=== PATIENT | male | born 1940 | race Caucasian/White ===

== ENCOUNTER 2018-11-17 14:19 | Emergency (ER) | payer MEDICARE ==
[~2018-11-17] VITALS: Ht 182.9 cm; Wt 102.1 kg
[2018-11-17] MEDS ORDERED: cefTRIAXone FOR IV USE 1,000 MG in WATER (STERILE) FOR INJECTION 10 ML IV STA (14:51)
[2018-11-17] MEDS ORDERED: NS IV 1000 ML 1,000 ML IV STA (14:51)
[2018-11-17 14:57] LABS: BILIRUBIN,URINE 1+ (NEGATIVE); CLARITY,URINE CLOUDY; COLOR,URINE YELLOW; GLUCOSE, URINE (UA) NEGATIVE (NEGATIVE); KETONES,URINE TRACE (NEGATIVE); LEUKOCYTE ESTERASE ,URINE 2+ (NEGATIVE); NITRITE,URINE NEGATIVE (NEGATIVE); PROTEIN,URINE TRACE (NEGATIVE); RBC,URINE 2+5 /HPF; UROBILINOGEN,URINE 0.2 MG/DL (NORMAL)
[2018-11-17 14:58] LABS: BACTERIA,URINE FEW /HPF; WBC,URINE 50+100 /HPF
--- NOTE | 2018-11-17 14:59 | ED Neurological Problem ---
General Stated Complaint: DIZZY,MEMORY LOSS Source: patient, family Exam Limitations: clinical condition History of Present Illness Date Seen by Provider: Nov 17, 2018 Time Seen by Provider: 14:40 This is a 78-year-old man who is brought to the emergency department by his family for complaint of "dizziness", increased confusion from baseline. This was first noticed this morning upon waking, he poorly put his pants on backwards , his daughter relays that he had urinated on the floor by accident. He apparently has had similar presentations in the past when he has had urinary tract infections. Patient denies any pain, no headache or neck pain or back pain or chest pain or abdominal pain. No shortness of breath. No visual change, no focal weakness, numbness, or tingling. He has not noticed a fever. Patient is disoriented to the year and to location, his daughter states this is not different from baseline, however as a result of acute on chronic encephalopathy history may be limited. Allergies and Home Medications Allergies Uncoded Allergies: SULFA (Adverse Reaction, Unknown, 11/17/18) Patient Home Medication List Home Medication List Reviewed: Yes Review of Systems Review of Systems Constitutional: no symptoms reported Eyes: No Symptoms Reported Ears, Nose, Mouth, Throat: no symptoms reported Respiratory: no symptoms reported Cardiovascular: no symptoms reported Gastrointestinal: no symptoms reported Genitourinary: incontinence Musculoskeletal: no symptoms reported Skin: no symptoms reported Psychiatric/Neurological: Cognitive Dysfunction; Denies Headache, Denies Numbness, Denies Weakness Past [id number]-Evgtud-Wzzcpx Hx Patient Social History Recent Foreign Travel: No (N) Contact w/Someone Who Travel: No (N) Physical Exam Vital Signs Vital Signs - First Documented 11/17/18 14:20 Temp 100.2 Pulse 78 Resp 16 B/P (MAP) 132/75 (94) Pulse Ox 95 O2 Delivery Room Air Capillary Refill : Height, Weight, BMI Height: '" Weight: lbs. oz. 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 Patient is disoriented to the year and to our location, this is apparently unchanged from baseline according to his daughter.), alert, normal mood/affect; No abnormal cerebellar tests Skin: normal color, warm/dry Focused Exam Lactate Level 11/17/18 14:50: Lactic Acid Level 1.17 Lactic Acid Level Laboratory Tests Test 11/17/18 14:50 Lactic Acid Level 1.17 MMOL/L (0.50-2.00) Progress/Results/Core Measures Results/Orders Lab Results Laboratory Tests Test 11/17/18 14:30 11/17/18 14:50 Range/Units Urine Color YELLOW Urine Clarity CLOUDY Urine pH 6.0 5-9 Urine Specific [place] 1.015 L 1.016-1.022 Urine Protein TRACE NEGATIVE Urine Glucose (UA) NEGATIVE NEGATIVE Urine Ketones TRACE H NEGATIVE Urine Nitrite NEGATIVE NEGATIVE Urine Bilirubin 1+ H NEGATIVE Urine Urobilinogen 0.2 NORMAL MG/DL Urine Leukocyte Esterase 2+ H NEGATIVE Urine RBC (Auto) TRACE H NEGATIVE Urine RBC 2+5 /HPF Urine WBC 50+100 /HPF Urine Crystals NONE /LPF Urine Bacteria FEW H /HPF Urine Casts NONE /LPF Urine Mucus NEGATIVE /LPF Urine Culture Indicated YES White Blood Count 17.1 H 4.3-11.0 10^3/uL Red Blood Count 4.27 L 4.35-5.85 10^6/uL Hemoglobin 12.9 L 13.3-17.7 G/DL Hematocrit 95 H 40-54 % Mean Corpuscular Volume 95 80-99 FL Mean Corpuscular Hemoglobin 30 25-34 PG Mean Corpuscular Hemoglobin Concent 32 32-36 G/DL Red Cell Distribution Width 15.1 H 10.0-14.5 % Platelet Count 168 130-400 10^3/uL Mean Platelet Volume 9.6 7.4-10.4 FL Neutrophils (%) (Auto) 81 H 42-75 % Lymphocytes (%) (Auto) 10 L 12-44 % Monocytes (%) (Auto) 7 0-12 % Eosinophils (%) (Auto) 0 0-10 % Basophils (%) (Auto) 0 0-10 % Neutrophils # (Auto) 13.8 H 1.8-7.8 X 10^3 Lymphocytes # (Auto) 1.7 1.0-4.0 X 10^3 Monocytes # (Auto) 1.3 H 0.0-1.0 X 10^3 Eosinophils # (Auto) 0.1 0.0-0.3 10^3/uL Basophils # (Auto) 0.1 0.0-0.1 10^3/uL Neutrophils % (Manual) 60 % Lymphocytes % (Manual) 11 % Monocytes % (Manual) 8 % Eosinophils % (Manual) 2 % Basophils % (Manual) 0 % Band Neutrophils 18 % Atypical Lymphocytes 1 % Schistocytes NA Prothrombin Time 14.8 H 12.2-14.7 SEC INR Comment 1.2 0.8-1.4 Activated Partial Thromboplast Time 30 24-35 SEC Sodium Level 139 135-145 MMOL/L Potassium Level 3.9 3.6-5.0 MMOL/L Chloride Level 103 98-107 MMOL/L Carbon Dioxide Level 25 21-32 MMOL/L Anion Gap 11 5-14 MMOL/L Blood Urea Nitrogen 17 7-18 MG/DL Creatinine 1.19 0.60-1.30 MG/DL Estimat Glomerular Filtration Rate 59 BUN/Creatinine Ratio 14 Glucose Level 115 H 70-105 MG/DL Lactic Acid Level 1.17 0.50-2.00 MMOL/L Calcium Level 8.3 L 8.5-10.1 MG/DL Corrected Calcium 8.5 8.5-10.1 MG/DL Total Bilirubin 2.0 H 0.1-1.0 MG/DL Aspartate Amino Transf (AST/SGOT) 12 5-34 U/L Alanine Aminotransferase (ALT/SGPT) 12 0-55 U/L Alkaline Phosphatase 63 40-136 U/L Troponin T 14 <=15 NG/L Total Protein 6.4 6.4-8.2 GM/DL Albumin 3.8 3.2-4.5 GM/DL My Orders Orders - MIKHAIL GOMEZ T DO Ua Culture If Indicated (11/17/18 14:39) Cbc With Automated Diff (11/17/18 14:47) Comprehensive Metabolic Panel (11/17/18 14:47) Blood Culture (11/17/18 14:47) Urinalysis (11/17/18 14:47) Urine Culture (11/17/18 14:47) Protime With Inr (11/17/18 14:47) Partial Thromboplastin Time (11/17/18 14:47) Chest 1 View Ap/Pa Only (11/17/18 14:47) Saline Lock/Iv-Start (11/17/18 14:47) Saline Lock/Iv-Start (11/17/18 14:47) Ekg Tracing (11/17/18 14:47) Vital Signs Adult Sepsis Patie Q15M (11/17/18 14:47) O2 (11/17/18 14:47) Remove Rings In Anticipation O (11/17/18 14:47) Lactic Acid Analyzer (11/17/18 14:47) Influenza A And B Antigens (11/17/18 14:47) Ct Head Wo (11/17/18 14:50) Ns Iv 1000 Ml (Sodium Chloride 0.9%) (11/17/18 14:51) Ceftriaxone For Iv Use (Rocephin For I (11/17/18 14:51) Urine Culture (11/17/18 14:30) Manual Differential (11/17/18 14:50) Vital Signs/I&O 11/17/18 14:20 Temp 100.2 Pulse 78 Resp 16 B/P (MAP) 132/75 (94) Pulse Ox 95 O2 Delivery Room Air Progress Progress Note : Progress Note Patient has a temperature of 100.2 oral, he has had similar presentations with some degree of ataxia in the past related to urinary tract infections. We will treat patient with empiric ceftriaxone, fluid bolus, acetaminophen, we will check lactic acid as a screen for severe sepsis, we will obtain CT of the brain although stroke is less likely differential consideration, and there is no history of trauma. He would be out of the TPA window if we did suspect stroke, and his presentation is not consistent with a large vessel occlusion potentially amenable to interventional procedure. Plan to admit patient for monitoring given that his mental status is changed from baseline. EKG : Comment 1446: Normal sinus rhythm rate of 77. Normal axis. Small inferior Q waves. Nonspecific inferior and lateral T-wave flattening. Diagnostic Imaging Comments CHEST 1 VIEW AP/PA ONLY INDICATION: Dizziness and memory loss. FINDINGS: The heart size, mediastinal configuration, and pulmonary vascularity are within normal limits. There is no pleural effusion, pneumothorax, or pneumonia. The osseous structures are unremarkable. IMPRESSION: No acute cardiopulmonary abnormality. PROCEDURE: CT head without contrast. TECHNIQUE: Multiple contiguous axial images were obtained through the brain without the use of intravenous contrast. INDICATION: Dizziness and memory loss. No prior examinations are available for comparison. FINDINGS: There is prominence of the ventricles and sulci. There is no hydrocephalus or cerebral edema. There is no midline shift or mass-effect. There is no intracranial mass, hemorrhage, or extra-axial fluid collection. There is some diffuse decreased attenuation of the periventricular white matter which is nonspecific. The visualized paranasal sinuses and mastoid air cells are clear. There are no regional areas of decreased attenuation appreciated to suggest an acute CVA. IMPRESSION: 1. No acute intracranial process. 2. Age- appropriate atrophy. 3. Decreased attenuation of the periventricular white matter which is nonspecific, however, likely reflects senescent change and/or chronic small vessel ischemic disease. Departure Impression Primary Impression: UTI (urinary tract infection) Additional Impression: Acute encephalopathy Disposition: XFER T-COUNTS INCLUDE 234 BEDS AT THE [facility] Condition: Stable Transfer Time Spoke to Accepting Phy: 16:35 Transfer Facility: [facility], accepted by Dr Young Method of Transfer: EMS Departure-Patient Inst. Referrals: SELF,MELISSA FERRELL (PCP/Family) Primary Care Physician MIKHAIL GOMEZ DO Nov 17, 2018 14:59
[2018-11-17 15:16] LABS: HEMATOCRIT 95 % (40-54); HEMOGLOBIN 12.9 G/DL (13.3-17.7); MEAN CORPUSCULAR HEMOGLOBIN 30 PG (25-34); WHITE BLOOD COUNT 17.1 10^3/uL (4.3-11.0)
[2018-11-17 15:17] LABS: BASOPHILS # (AUTO) 0.1 10^3/uL (0.0-0.1); BASOPHILS % (AUTO) 0 % (0-10); EOSINOPHILS # (AUTO) 0.1 10^3/uL (0.0-0.3); EOSINOPHILS % (AUTO) 0 % (0-10); LYMPHOCYTES # (AUTO) 1.7 X 10^3 (1.0-4.0); LYMPHOCYTES % (AUTO) 10 % (12-44); MEAN CORPUSCULAR HGB CONC 32 G/DL (32-36); MEAN CORPUSCULAR VOLUME 95 FL (80-99); MEAN PLATELET VOLUME 9.6 FL (7.4-10.4); MONOCYTES # (AUTO) 1.3 X 10^3 (0.0-1.0); MONOCYTES % (AUTO) 7 % (0-12); NEUTROPHILS # (AUTO) 13.8 X 10^3 (1.8-7.8); NEUTROPHILS % (AUTO) 81 % (42-75); PLATELET COUNT 168 10^3/uL (130-400); RED CELL DISTRIBUTION WIDTH 15.1 % (10.0-14.5)
--- NOTE | 2018-11-17 15:22 | Diagnostic Imaging Report ---
PROCEDURE: CT head without contrast. TECHNIQUE: Multiple contiguous axial images were obtained through the brain without the use of intravenous contrast. INDICATION: Dizziness and memory loss. No prior examinations are available for comparison. FINDINGS: There is prominence of the ventricles and sulci. There is no hydrocephalus or cerebral edema. There is no midline shift or mass-effect. There is no intracranial mass, hemorrhage, or extra-axial fluid collection. There is some diffuse decreased attenuation of the periventricular white matter which is nonspecific. The visualized paranasal sinuses and mastoid air cells are clear. There are no regional areas of decreased attenuation appreciated to suggest an acute CVA. IMPRESSION: 1. No acute intracranial process. 2. Age-appropriate atrophy. 3. Decreased attenuation of the periventricular white matter which is nonspecific, however, likely reflects senescent change and/or chronic small vessel ischemic disease. Dictated by: Dictated on workstation # [id number]
[2018-11-17 15:24] LABS: INR 1.2 (0.8-1.4); PROTHROMBIN TIME PATIENT 14.8 SEC (12.2-14.7)
--- NOTE | 2018-11-17 15:25 | Diagnostic Imaging Report ---
INDICATION: Dizziness and memory loss. FINDINGS: The heart size, mediastinal configuration, and pulmonary vascularity are within normal limits. There is no pleural effusion, pneumothorax, or pneumonia. The osseous structures are unremarkable. IMPRESSION: No acute cardiopulmonary abnormality. Dictated by: Dictated on workstation # [id number]
[2018-11-17] MEDS ORDERED: LEVO25TA5 (15:27)
[2018-11-17 15:29] LABS: ALBUMIN 3.8 GM/DL (3.2-4.5); CALCIUM 8.3 MG/DL (8.5-10.1); CREATININE SERUM 1.19 MG/DL (0.60-1.30); POTASSIUM 3.9 MMOL/L (3.6-5.0); TOTAL PROTEIN 6.4 GM/DL (6.4-8.2)
[2018-11-17 16:09] LABS: BAND NEUTROPHILS 18 %; EOSINOPHILS % (MANUAL) 2 %; LYMPHOCYTES % (MANUAL) 11 %; MONOCYTES % (MANUAL) 8 %; NEUTROPHILS % (MANUAL) 60 %
[2018-11-17 16:10] LABS: ATYPICAL LYMPHOCYTES 1 %; BASOPHILS % (MANUAL) 0 %
--- NOTE | 2018-11-17 16:30 | NUR ---
ACCEPTED TRANSFER PER [facility].
--- NOTE | 2018-11-17 16:34 | NUR ---
NOTIFIED REGISTRATION OF NEED FOR UPDATED FACESHEET AND FAX # TO SEND IT
--- NOTE | 2018-11-17 16:35 | NUR ---
UPDATED ALLERGY LIST, FAMILY STATE PRIOR ALLERGY OF SULFA FOUND AT [facility].
--- NOTE | 2018-11-17 17:00 | NUR ---
REPORT TO ELINA RAMSEY. TRANSFER DEPT [facility] AWAITING FACESHEET BEING UPDATED. NO BED ASSIGNMENT YET.
[2018-11-17 17:23] VITALS: BP 133/63
[2018-11-17 17:49] VITALS: BP 139/66
--- NOTE | 2018-11-17 18:04 | NUR ---
Fax sheet was sent to dispatch at this time. Dispatch was called to notify them of transfer to [facility].
--- NOTE | 2018-11-17 18:20 | NUR ---
Report was given to [facility] EMS crew. Report was given and transferred to BRANDT Harrison. EMS left with patient at this time.
== END 2018-11-17 18:21 | disposition short-term general hospital (02) ==
LOC: EDUNIT# 14:19 → ER FS 14:22
DX: N39.0 Urinary tract infection, site not specified (principal); G93.40 Encephalopathy, unspecified; Z88.2 Allergy status to sulfonamides
CPT/HCPCS: 36415; 70450; 71045; 80053; 81000; 83605; 84484; 85007; 85027; 85610; 85730; 87040; 87077; 87088; 87186; 87804; 93005

== ENCOUNTER 2018-12-14 10:50 | Emergency (ER) | payer MEDICARE ==
[~2018-12-14] VITALS: Ht 188 cm; Wt 90.7 kg
[~2018-12-14 10:50] MED LIST: LEVO25TA5
[2018-12-14] MEDS ORDERED: NS IV 1000 ML 1,000 ML IV SCH (11:15)
[2018-12-14] MEDS ORDERED: MECLIZINE 25 MG (ANTIVERT) TAB PO ONE (11:15)
[2018-12-14 11:45] LABS: BASOPHILS % (AUTO) 1 % (0-10); EOSINOPHILS % (AUTO) 2 % (0-10); HEMATOCRIT 38 % (40-54); LYMPHOCYTES % (AUTO) 20 % (12-44); MEAN CORPUSCULAR HEMOGLOBIN 30 PG (25-34); MEAN CORPUSCULAR HGB CONC 32 G/DL (32-36); MEAN CORPUSCULAR VOLUME 93 FL (80-99); MEAN PLATELET VOLUME 9.4 FL (7.4-10.4); MONOCYTES % (AUTO) 9 % (0-12); NEUTROPHILS % (AUTO) 68 % (42-75); PLATELET COUNT 205 10^3/uL (130-400); RED CELL DISTRIBUTION WIDTH 14.5 % (10.0-14.5); WHITE BLOOD COUNT 7.9 10^3/uL (4.3-11.0)
[2018-12-14 11:46] LABS: EOSINOPHILS # (AUTO) 0.2 10^3/uL (0.0-0.3); LYMPHOCYTES # (AUTO) 1.6 X 10^3 (1.0-4.0); MONOCYTES # (AUTO) 0.7 X 10^3 (0.0-1.0); NEUTROPHILS # (AUTO) 5.3 X 10^3 (1.8-7.8)
--- NOTE | 2018-12-14 11:51 | Diagnostic Imaging Report ---
PROCEDURE: CT head without contrast. TECHNIQUE: Multiple contiguous axial images were obtained through the brain without the use of intravenous contrast. Auto Exposure Controls were utilized during the CT exam to meet ALARA standards for radiation dose reduction. INDICATION: Dizziness, syncope The ventricles are normal in size, shape and position. There are no masses or hemorrhages. There are no extra-axial fluid collections. There is decreased density in the periventricular white matter in both cerebral hemispheres consistent with chronic small vessel ischemic change. This is unchanged compared to prior study done on 11/17/2018. Impression: Chronic ischemic leukoencephalopathy. No acute abnormalities seen. Dictated by: Dictated on workstation # [id number]
[2018-12-14 12:04] LABS: ALANINE AMINOTRANSFERASE 8 U/L (0-55); ALKALINE PHOSPHATASE 71 U/L (40-136); BILIRUBIN,TOTAL 1.5 MG/DL (0.1-1.0); BUN/CREATININE RATIO 14; CALCIUM 8.4 MG/DL (8.5-10.1); CARBON DIOXIDE 19 MMOL/L (21-32); CHLORIDE 99 MMOL/L (98-107); CREATININE SERUM 1.11 MG/DL (0.60-1.30); GFR ESTIMATED > 60; GLUCOSE 111 MG/DL (70-105); POTASSIUM 3.8 MMOL/L (3.6-5.0); SODIUM 137 MMOL/L (135-145); TOTAL PROTEIN 6.6 GM/DL (6.4-8.2)
[2018-12-14 13:00] LABS: CLARITY,URINE CLEAR; COLOR,URINE YELLOW; GLUCOSE, URINE (UA) NEGATIVE (NEGATIVE); KETONES,URINE NEGATIVE (NEGATIVE); NITRITE,URINE NEGATIVE (NEGATIVE); PROTEIN,URINE NEGATIVE (NEGATIVE)
[2018-12-14 13:01] LABS: BACTERIA,URINE NEGATIVE /HPF; BILIRUBIN,URINE NEGATIVE (NEGATIVE); LEUKOCYTE ESTERASE ,URINE NEGATIVE (NEGATIVE); RBC,URINE 0-2 /HPF; SQUAMOUS EPITHELIAL CELL,UR 0-2 /HPF; WBC,URINE 0-2 /HPF
--- NOTE | 2018-12-14 13:23 | ED General ---
General Chief Complaint: Dizziness/Syncope Nursing Triage Note: Has been having increased orthostatic hypotension. Fludrocortisone was increased by Dr Mendez with first new dose this morning. Patient fell last night. Nursing Sepsis Screen: No Definite Risk Source of Information: Patient, Caregiver Exam Limitations: No Limitations History of Present Illness Date Seen by Provider: Dec 14, 2018 Time Seen by Provider: 12:00 Initial Comments Toni Hardy is a 78-year-old male retirement patient with history of dementia orthostatic hypotension with frequent dizzy and falling episodes which is been ongoing for several months presents with continued dizzy spells despite having a recent increase in his Florinef. Patient was instructed to take an extra dose yesterday and again today. Dizziness is postural and worse with standing and walking. Patient does not lean or fall to a particular side. He denies headache , focal extremity weakness or loss of sensation. Apparently, this is not a new condition is been extensively evaluated at [facility] in [place]. She denies loss of appetite, recent change in medications other than outlined. He has not had any recent illnesses. He is on anticoagulation therapy. History limited due the patient's dementia. Timing/Duration: Other (several months) Allergies and Home Medications Allergies Uncoded Allergies: SULFA (Adverse Reaction, Unknown, 11/17/18) Patient Home Medication List Home Medication List Reviewed: Yes Review of Systems Review of Systems Constitutional: see HPI EENTM: see HPI Respiratory: see HPI Cardiovascular: see HPI Psychiatric/Neurological: Anxiety; Denies Headache, Denies Numbness, Denies Paresthesia, Denies Tingling, Denies Tremors, Denies Weakness; Other (possible vertigo) Past Aypbqzk-Tbrkwy-Voxzxl Hx Patient Social History Alcohol Use: Denies Use Recreational Drug Use: No Smoking Status: Never a Smoker Type Used: Cigarettes, Smokeless Tobacco Former Smoker, Quit: Sep 25, 1968 2nd Hand Smoke Exposure: No Recent Foreign Travel: No Contact w/Someone Who Travel: No Recent Infectious Disease Expo: No Recent Hopitalizations: No Physical Abuse: No Sexual Abuse: No Mistreated: No Seasonal Allergies Seasonal Allergies: No Past Medical History Cardiac: Yes (per Assisted Living records CAD and orthostatic hypotension) Coronary Artery Disease, Hypotension Neurological: Yes (memory loss per Assisted Living records) Genitourinary: Yes (hx urine retention) UTI-Chronic Physical Exam Vital Signs Vital Signs - First Documented 3/22/19 10:57 Temp 98.7 Pulse 82 Resp 20 B/P (MAP) 115/69 (84) Pulse Ox 93 Capillary Refill : Less Than 3 Seconds Height, Weight, BMI Height: 6'2.00" Weight: 200lbs. oz. 90.317649lg; BMI Method:Stated General Appearance: No Apparent Distress, WD/WN Eyes: Bilateral Eye Normal Inspection, Bilateral Eye PERRL HEENT: PERRL/EOMI, Normal ENT Inspection, Pharynx Normal Neck: Full Range of Motion, Normal Inspection, Supple Respiratory: Chest Non Tender, Lungs Clear Cardiovascular: Regular Rate, Rhythm Gastrointestinal: Normal Bowel Sounds, No Pulsatile Mass Back: Normal Inspection Extremity: Normal Capillary Refill Neurologic/Psychiatric: Alert, No Motor/Sensory Deficits, Normal Mood/Affect, battery container tester II-XII Norm as Tested, Abnormal Gait Reflexes: 4+ Bicep (R), 4+ Bicep (L), 4+ Tricep (R), 4+ Tricep (L), 4+ Knee (R) , 4+ Knee (L), 4+ Ankle (R), 4+ Ankle (L) Skin: Normal Color Focused Exam Sepsis Stage: Ruled Out Progress/Results/Core Measures Suspected Sepsis Recent Fever Within 48 Hours: No Infection Criteria Present: None New/Unexplained Altered Menta: No Sepsis Screen: No Definite Risk SIRS Temperature:98.7 Pulse: 82 Respiratory Rate: 20 Laboratory Tests 12/14/18 11:25: White Blood Count 7.9 Blood Pressure 115 /69 Mean: 84 Laboratory Tests 12/14/18 11:25: Creatinine 1.11, Platelet Count 205, Total Bilirubin 1.5H Results/Orders Lab Results Laboratory Tests Test 12/14/18 11:25 12/14/18 12:29 Range/Units White Blood Count 7.9 4.3-11.0 10^3/uL Red Blood Count 4.05 L 4.35-5.85 10^6/uL Hemoglobin 12.0 L 13.3-17.7 G/DL Hematocrit 38 L 40-54 % Mean Corpuscular Volume 93 80-99 FL Mean Corpuscular Hemoglobin 30 25-34 PG Mean Corpuscular Hemoglobin Concent 32 32-36 G/DL Red Cell Distribution Width 14.5 10.0-14.5 % Platelet Count 205 130-400 10^3/uL Mean Platelet Volume 9.4 7.4-10.4 FL Neutrophils (%) (Auto) 68 42-75 % Lymphocytes (%) (Auto) 20 12-44 % Monocytes (%) (Auto) 9 0-12 % Eosinophils (%) (Auto) 2 0-10 % Basophils (%) (Auto) 1 0-10 % Neutrophils # (Auto) 5.3 1.8-7.8 X 10^3 Lymphocytes # (Auto) 1.6 1.0-4.0 X 10^3 Monocytes # (Auto) 0.7 0.0-1.0 X 10^3 Eosinophils # (Auto) 0.2 0.0-0.3 10^3/uL Basophils # (Auto) 0.0 0.0-0.1 10^3/uL Sodium Level 137 135-145 MMOL/L Potassium Level 3.8 3.6-5.0 MMOL/L Chloride Level 99 98-107 MMOL/L Carbon Dioxide Level 19 L 21-32 MMOL/L Anion Gap 19 H 5-14 MMOL/L Blood Urea Nitrogen 16 7-18 MG/DL Creatinine 1.11 0.60-1.30 MG/DL Estimat Glomerular Filtration Rate > 60 BUN/Creatinine Ratio 14 Glucose Level 111 H 70-105 MG/DL Calcium Level 8.4 L 8.5-10.1 MG/DL Corrected Calcium 9.2 8.5-10.1 MG/DL Total Bilirubin 1.5 H 0.1-1.0 MG/DL Aspartate Amino Transf (AST/SGOT) 11 5-34 U/L Alanine Aminotransferase (ALT/SGPT) 8 0-55 U/L Alkaline Phosphatase 71 40-136 U/L Total Protein 6.6 6.4-8.2 GM/DL Albumin 3.0 L 3.2-4.5 GM/DL Urine Color YELLOW Urine Clarity CLEAR Urine pH 6.0 5-9 Urine Specific [place] 1.010 L 1.016-1.022 Urine Protein NEGATIVE NEGATIVE Urine Glucose (UA) NEGATIVE NEGATIVE Urine Ketones NEGATIVE NEGATIVE Urine Nitrite NEGATIVE NEGATIVE Urine Bilirubin NEGATIVE NEGATIVE Urine Urobilinogen 1.0 NORMAL MG/DL Urine Leukocyte Esterase NEGATIVE NEGATIVE Urine RBC (Auto) NEGATIVE NEGATIVE Urine RBC 0-2 /HPF Urine WBC 0-2 /HPF Urine Squamous Epithelial Cells 0-2 /HPF Urine Crystals NONE /LPF Urine Bacteria NEGATIVE /HPF Urine Casts NONE /LPF Urine Mucus MODERATE H /LPF Urine Culture Indicated NO My Orders Orders - FIORELLA TORRES DO Cbc With Automated Diff (12/14/18 11:14) Comprehensive Metabolic Panel (12/14/18 11:14) Urinalysis (12/14/18 11:14) Ekg Tracing (12/14/18 11:14) Meclizine Tablet (Antivert Tablet) (12/14/18 11:15) Ns Iv 1000 Ml (Sodium Chloride 0.9%) (12/14/18 11:15) Ct Head Wo (12/14/18 11:14) Thyroid Stimulating Hormone (12/14/18 11:25) Medications Given in ED Current Medications Medications Dose Ordered Sig/Isaac Route Start Time Stop Time Status Last Admin Dose Admin Meclizine HCl 25 mg ONCE ONCE PO 12/14/18 11:15 12/14/18 11:16 DC 12/14/18 11:29 25 MG Vital Signs/I&O 12/14/18 10:57 Temp 98.7 Pulse 82 Resp 20 B/P (MAP) 115/69 (84) Pulse Ox 93 Capillary Refill : Less Than 3 Seconds Blood Pressure Mean: 84 Departure Communication (Admissions) Patient has chronic dizziness with orthostatic component. Patient may also have a component of vertigo. IV fluids and meclizine given. CT labs, EKG reviewed and nondiagnostic. Recommend following up with PCPs office on Monday for coordination of outpatient therapy. In the meantime, the patient is instructed to use a walker as he as at high risk of fall and injury Impression Primary Impression: Orthostatic dizziness Additional Impression: Vertigo Disposition: 01 HOME, SELF-CARE Condition: Stable Departure-Patient Inst. Decision time for Depature: 13:26 Referrals: SELFMELISSA MD (PCP/Family) Primary Care Physician Patient Instructions: Vertigo (a Type of Dizziness) (DC), Orthostatic Hypotension (DC) Scripts Benzonatate (TESSALON PERLES) 100 Mg Capsule 100 MG PO BID PRN for COUGH, #20 CAP Prov: FIORELLA TORRES DO 12/14/18 Meclizine HCl (Meclizine HCl) 25 Mg Tablet 25 MG PO Q6H PRN for VERTIGO, #15 TAB Prov: FIORELLA TORRES DO 12/14/18 FIORELLA TORRES DO Dec 14, 2018 13:23
[2018-12-14] MEDS ORDERED: MECL-106 PO (13:28)
[2018-12-14] MEDS ORDERED: BENZ100C18 PO (13:28)
[2018-12-14 13:38] VITALS: BP 115/69
== END 2018-12-14 13:40 | disposition home or self-care (01) ==
LOC: EDUNIT# 10:50 → ER FS 10:59
DX: R42 Dizziness and giddiness (principal); F03.90 Unspecified dementia, unspecified severity, without behavioral disturbance, psychotic disturbance, mood disturbance, and anxiety; I25.10 Atherosclerotic heart disease of native coronary artery without angina pectoris; I10 Essential (primary) hypertension; Z87.440 Personal history of urinary (tract) infections; Z88.2 Allergy status to sulfonamides; Z87.891 Personal history of nicotine dependence
CPT/HCPCS: 36415; 70450; 80053; 81000; 84443; 85025

== ENCOUNTER → 2019-03-21 | Outpatient (CLI) | payer MEDICARE ==
[~2019-03-21] MED LIST changes: +BENZ100C18 PO; +MECL-106 PO
== END ==
LOC: LAB FS 09:12
PROVIDERS: ATTEND Urology
DX: N40.1 Benign prostatic hyperplasia with lower urinary tract symptoms (principal); R39.9 Unspecified symptoms and signs involving the genitourinary system
CPT/HCPCS: 36415; 84153

== ENCOUNTER 2019-05-20 08:32 | Emergency (ER) | payer MEDICARE ==
[~2019-05-20] VITALS: Ht 185.4 cm; Wt 98.9 kg
--- NOTE | 2019-05-20 08:50 | NUR ---
Pt assisted to stand to use urinal. Pt voided clear light yellow urine. Urine sent to lab.
--- NOTE | 2019-05-20 08:53 | ED General ---
General Stated Complaint: AMS Source of Information: Patient History of Present Illness Date Seen by Provider: May 20, 2019 Time Seen by Provider: 08:50 Initial Comments Patient is 79 year old male [facility] with history of dementia, neuropathy and frequent urinary tract infection who presents with paresthesias of bilateral foot pain, and decreased vigor this morning. senior care staff states the patient did not get out of bed with the usual finger and appeared more weak than normal. Patient states he did not sleep much last night. It is unclear why the patient did not sleep well although it may be related to his bilateral foot pain. There are no reports of fever, vomiting, falls injuries or recent medication changes. History is limited by the presence of dementia. Timing/Duration: Constant Severity: Mild Associated Systoms: Denies Symptoms Allergies and Home Medications Allergies Uncoded Allergies: SULFA (Adverse Reaction, Unknown, 11/17/18) Home Medications Benzonatate 100 Mg Capsule, 100 MG PO BID PRN for COUGH Prescribed by: FIORELLA TORRES on 12/14/18 1328 Meclizine HCl 25 Mg Tablet, 25 MG PO Q6H PRN for VERTIGO Prescribed by: FIORELLA TORRES on 12/14/18 1328 Patient Home Medication List Home Medication List Reviewed: Yes Review of Systems Review of Systems Constitutional: see HPI EENTM: see HPI Respiratory: see HPI Cardiovascular: see HPI Gastrointestinal: see HPI Musculoskeletal: no symptoms reported Skin: see HPI Psychiatric/Neurological: See HPI Hematologic/Lymphatic: No Symptoms Reported Immunological/Allergic: no symptoms reported Past Labchbh-Lxarqk-Tlyixi Hx Past Med/Social Hx: Reviewed Nursing Past Med/Soc Hx Patient Social History Type Used: Cigarettes, Smokeless Tobacco Former Smoker, Quit: Sep 25, 1968 2nd Hand Smoke Exposure: No Recent Hopitalizations: No Seasonal Allergies Seasonal Allergies: No Past Medical History Cardiac: Yes (per [facility] records CAD and orthostatic hypotension) Coronary Artery Disease, Hypotension Neurological: Yes (memory loss per [facility] records) Genitourinary: Yes (hx urine retention) UTI-Chronic Physical Exam Vital Signs Vital Signs - First Documented 05/20/19 08:40 Temp 97.7 Pulse 62 Resp 20 B/P (MAP) 177/90 (119) Pulse Ox 97 O2 Delivery Room Air Capillary Refill : Height, Weight, BMI Height: 6'2.00" Weight: 200lbs. oz. [id number]; BMI Method:Stated General Appearance: No Apparent Distress, WD/WN, Anxious Eyes: Bilateral Eye Normal Inspection, Bilateral Eye PERRL, Bilateral Eye EOMI, Bilateral Eye Abnormal EOM HEENT: PERRL/EOMI, Normal ENT Inspection, Pharynx Normal Neck: Non Tender, Supple Respiratory: Chest Non Tender, Lungs Clear Cardiovascular: Regular Rate, Rhythm, No Edema Gastrointestinal: Normal Bowel Sounds, Non Tender, Soft Back: Normal Inspection, No CVA Tenderness Extremity: Normal Capillary Refill, Normal Inspection, Normal Range of Motion, Non Tender, No Calf Tenderness Neurologic/Psychiatric: Alert, Other (critical nurse to suggest grossly intact, walks a steady gait) Skin: Normal Color, Warm/Dry Lymphatic: No Adenopathy Focused Exam Sepsis Stage: Ruled Out Progress/Results/Core Measures Suspected Sepsis SIRS Temperature: Pulse: Respiratory Rate: Blood Pressure / Mean: Results/Orders Lab Results Laboratory Tests Test 05/20/19 08:50 Range/Units Urine Color YELLOW Urine Clarity CLEAR Urine pH 7.5 5-9 Urine Specific [place] 1.010 L 1.016-1.022 Urine Protein NEGATIVE NEGATIVE Urine Glucose (UA) NEGATIVE NEGATIVE Urine Ketones NEGATIVE NEGATIVE Urine Nitrite NEGATIVE NEGATIVE Urine Bilirubin NEGATIVE NEGATIVE Urine Urobilinogen 0.2 NORMAL MG/DL Urine Leukocyte Esterase NEGATIVE NEGATIVE Urine RBC (Auto) NEGATIVE NEGATIVE Urine RBC NONE /HPF Urine WBC 2-5 /HPF Urine Squamous Epithelial Cells RARE /HPF Urine Crystals NONE /LPF Urine Bacteria NEGATIVE /HPF Urine Casts NONE /LPF Urine Mucus NEGATIVE /LPF Urine Culture Indicated NO My Orders Orders - FIORELLA TORRES DO Ua Culture If Indicated (05/20/19 08:46) Vital Signs/I&O 05/20/19 08:40 Temp 97.7 Pulse 62 Resp 20 B/P (MAP) 177/90 (119) Pulse Ox 97 O2 Delivery Room Air Capillary Refill : Departure Communication (Admissions) UA sample reviewed. Patient is able to put his shoes and socks off and walk independently around the emergency department. Will discharge to [facility] with instructions to follow up with PCP Impression Primary Impression: Neuropathy Disposition: 01 HOME, SELF-CARE Condition: Stable Departure-Patient Inst. Referrals: MELISSA VARGAS MD (PCP/Family) Primary Care Physician Patient Instructions: Neuropathic Pain Add. Discharge Instructions: Please follow up with PCP for routine medical concerns. FIORELLA TORRES DO May 20, 2019 08:53
--- NOTE | 2019-05-20 08:55 | NUR ---
Call to [facility] to speak with staff. Dr Campbell requests the story for transport via EMS. EMS state pt c/o feet are hot. Pt greeted on arrival and pt c/o feet are hot. Per April, the patient was being readied for breakfast in which he can get up with use of walker and be independent. Pt had trouble getting up without assist and seemed very confused this a.m. Staff reported pt was also incont of urine. Hx UTI with sepsis in his past. Pt has not ate breakfast.
[2019-05-20 09:08] LABS: BACTERIA,URINE NEGATIVE /HPF; BILIRUBIN,URINE NEGATIVE (NEGATIVE); CLARITY,URINE CLEAR; COLOR,URINE YELLOW; GLUCOSE, URINE (UA) NEGATIVE (NEGATIVE); KETONES,URINE NEGATIVE (NEGATIVE); LEUKOCYTE ESTERASE ,URINE NEGATIVE (NEGATIVE); NITRITE,URINE NEGATIVE (NEGATIVE); PH,URINE 7.5 (5-9); PROTEIN,URINE NEGATIVE (NEGATIVE); SQUAMOUS EPITHELIAL CELL,UR RARE /HPF; UROBILINOGEN,URINE 0.2 MG/DL (NORMAL)
--- NOTE | 2019-05-20 09:50 | NUR ---
Pt crawled out of bed with rails up and presents to nurse's station. Pt looking for a bathroom. Assisted pt to ambulate to bathroom.
--- NOTE | 2019-05-20 09:55 | NUR ---
Located a walker and had patient rely on walker to ambulate again with steady gait back to his room.
--- NOTE | 2019-05-20 10:05 | NUR ---
Pt crawled out of bed and walking into hallway. Pt confused looking for his room. Pt is hx dementia. Visited with patient gently reminding pt of being in ER and his ride coming to take his back to room at [facility].
--- NOTE | 2019-05-20 10:10 | NUR ---
Called to [facility] spoke with April. Pt report given of UA completed and was negative. No meds administered. Pt is pleasantly confused in unfamiliar surroundings. Pt has placed his own socks and shoes back on and no longer talking about his "hot feet".
[2019-05-20 10:19] VITALS: BP 172/86
--- NOTE | 2019-05-20 10:19 | NUR ---
[facility] staff is present. Pt discharged, in care of staff of [facility], ambulatory using his walker brought. Pt remains pleasantly confused to surroundings, date, and time.
== END 2019-05-20 10:19 | disposition home or self-care (01) ==
LOC: EDUNIT# 08:32 → ER FS 08:33
DX: G62.9 Polyneuropathy, unspecified (principal); F03.90 Unspecified dementia, unspecified severity, without behavioral disturbance, psychotic disturbance, mood disturbance, and anxiety; I25.10 Atherosclerotic heart disease of native coronary artery without angina pectoris; Z88.2 Allergy status to sulfonamides; Z87.891 Personal history of nicotine dependence; Z87.440 Personal history of urinary (tract) infections
CPT/HCPCS: 81000; 99283

== ENCOUNTER 2020-02-22 09:32 | Inpatient (IN) | payer MEDICARE ==
[~2020-02-22] VITALS: Ht 182.9 cm; Wt 98.1 kg
[~2020-02-22 09:32] MED LIST changes: -LEVO25TA5; +LEVO25TA5 PO; -MECL-106 PO; +MECL-149 PO
--- OUTSIDE RECORDS SUMMARY | 2020-02-22 09:45 | XMS REPORT | Continuity of Care Document ---
Author Organization Unknown Address Unknown Phone Unavailable Allergies Active Description Code Type Severity Reaction Onset Reported/Identified Relationship to Patient Clinical Status Yes No Known Drug Allergies [id number] Drug Allergy Unknown N/A 11/17/2018 Yes SULFA SULFA Unknown N/A 11/17/2018 Medications There is no data. Problems Date Dx Coded Attending Type Code Diagnosis Diagnosed By 11/17/2018 JASON CASTANON MIKHAIL T Ot G93. 40 ENCEPHALOPATHY, UNSPECIFIED 11/17/2018 JASON CASTANON, MIKHAIL T Ot N39. 0 URINARY TRACT INFECTION, SITE NOT SPECIF 11/17/2018 JASON CASTANON MIKHAIL T Ot R42 DIZZINESS AND GIDDINESS 11/17/2018 JASON CASTANON MIKHAIL T Ot Z88. 2 ALLERGY STATUS TO SULFONAMIDES STATUS 11/21/2018 JASON CASTANON MIKHAIL T Ot G93. 40 ENCEPHALOPATHY, UNSPECIFIED 11/21/2018 JASON CASTANON, MIKHAIL T Ot N39. 0 URINARY TRACT INFECTION, SITE NOT SPECIF 11/21/2018 JASON CASTANON, MIKHAIL T Ot R42 DIZZINESS AND GIDDINESS 11/21/2018 JASON CASTANON MIKHAIL T Ot Z88. 2 ALLERGY STATUS TO SULFONAMIDES STATUS 12/14/2018 BRIAN CASTANON FIORELLA Ot F03.90 UNSPECIFIED DEMENTIA WITHOUT BEHAVIORAL 12/14/2018 BRIAN CASTANON FIORELLA Ot I10 ESSENTIAL (PRIMARY) HYPERTENSION 12/14/2018 BRIAN CASTANON FIORELLA Ot I25.10 ATHSCL HEART DISEASE OF [place] CORONARY 12/14/2018 FIORELLA TORRES DO Ot R42 DIZZINESS AND GIDDINESS 12/14/2018 FIORELLA TORRES DO Ot Z87.440 PERSONAL HISTORY OF URINARY (TRACT) INFE 12/14/2018 FIORELLA TORRES DO Ot Z87.891 PERSONAL HISTORY OF NICOTINE DEPENDENCE 12/14/2018 FIORELLA TORRES DO Ot Z88.2 ALLERGY STATUS TO SULFONAMIDES STATUS 12/17/2018 BRIAN CASTANON FIORELLA Ot F03.90 UNSPECIFIED DEMENTIA WITHOUT BEHAVIORAL 12/17/2018 BRIAN CASTANON FIORELLA Ot I10 ESSENTIAL (PRIMARY) HYPERTENSION 12/17/2018 BRIAN CASTANON FIORELLA Ot I25.10 ATHSCL HEART DISEASE OF [place] CORONARY 12/17/2018 TORRES DO, FIORELLA Ot R42 DIZZINESS AND GIDDINESS 12/17/2018 TORRES DO, FIORELLA Ot Z87.440 PERSONAL HISTORY OF URINARY (TRACT) INFE 12/17/2018 TORRES DO, FIORELLA Ot Z87.891 PERSONAL HISTORY OF NICOTINE DEPENDENCE 12/17/2018 TORRES DO, FIORELLA Ot Z88.2 ALLERGY STATUS TO SULFONAMIDES STATUS 12/20/2018 LIBERTY DO, FIORELLA Ot F03.90 UNSPECIFIED DEMENTIA WITHOUT BEHAVIORAL 12/20/2018 TORRES DO, FIORELLA Ot I10 ESSENTIAL (PRIMARY) HYPERTENSION 12/20/2018 LIBERTY DO, FIORELLA Ot I25.10 ATHSCL HEART DISEASE OF [place] CORONARY 12/20/2018 LIBERTY DO, FIORELLA Ot R42 DIZZINESS AND GIDDINESS 12/20/2018 LIBERTY DO, FIORELLA Ot Z87.440 PERSONAL HISTORY OF URINARY (TRACT) INFE 12/20/2018 LIBERTY DO, FIORELLA Ot Z87.891 PERSONAL HISTORY OF NICOTINE DEPENDENCE 12/20/2018 [place]ERTY DO, FIORELLA Ot Z88.2 ALLERGY STATUS TO SULFONAMIDES STATUS 03/22/2019 KEYSHA FERRELL, LYRIC Madden Ot N40.1 BENIGN PROSTATIC HYPERPLASIA WITH LOWER 03/22/2019 LYRIC CHOPRA MD Ot R39.9 UNSP SYMPTOMS AND SIGNS INVOLVING THE GE 03/22/2019 LYRIC CHOPRA MD Ot N40.1 BENIGN PROSTATIC HYPERPLASIA WITH LOWER 03/22/2019 LYRIC CHOPRA MD Ot R39.9 UNSP SYMPTOMS AND SIGNS INVOLVING THE GE 04/11/2019 LYRIC CHOPRA MD Ot N40.1 BENIGN PROSTATIC HYPERPLASIA WITH LOWER 04/11/2019 LYRIC CHOPRA MD Ot R39.9 UNSP SYMPTOMS AND SIGNS INVOLVING THE GE 05/20/2019 LIBERTY DO, FIORELLA Ot F03.90 UNSPECIFIED DEMENTIA WITHOUT BEHAVIORAL 05/20/2019 [place] DO, FIORELLA Ot G62.9 POLYNEUROPATHY, UNSPECIFIED 05/20/2019 LIBERTY DO, FIORELLA Ot I25.10 ATHSCL HEART DISEASE OF [place] CORONARY 05/20/2019 TORRES DO, FIORELLA Ot R20.2 PARESTHESIA OF SKIN 05/20/2019 LIBERTY DO, FIORELLA Ot Z87.440 PERSONAL HISTORY OF URINARY (TRACT) INFE 05/20/2019 TORRES DO, FIORELLA Ot Z87.891 PERSONAL HISTORY OF NICOTINE DEPENDENCE 05/20/2019 LIBERTY DO, FIORELLA Ot Z88.2 ALLERGY STATUS TO SULFONAMIDES STATUS 05/23/2019 FIORELLA TORRES DO Ot F03.90 UNSPECIFIED DEMENTIA WITHOUT BEHAVIORAL 05/23/2019 FIORELLA TORRES DO Ot G62.9 POLYNEUROPATHY, UNSPECIFIED 05/23/2019 FIORELLA TORRES DO Ot I25.10 ATHSCL HEART DISEASE OF [place] CORONARY 05/23/2019 FIORELLA TORRES DO Ot R20.2 PARESTHESIA OF SKIN 05/23/2019 TORRES FIORELLA CASTANON Ot Z87.440 PERSONAL HISTORY OF URINARY (TRACT) INFE 05/23/2019 FIORELLA TORRES DO Ot Z87.891 PERSONAL HISTORY OF NICOTINE DEPENDENCE 05/23/2019 TORRES FIORELLA CASTANON Ot Z88.2 ALLERGY STATUS TO SULFONAMIDES STATUS Procedures There is no data. Results Test Result Range Complete urinalysis with reflex to cultu re - 11/17/18 14:30 Urine color determination YELLOW NRG Urine clarity determination CLOUDY NR G Urine pH measurement by test strip 6.0 5-9 Specific gravity of urine by test strip 1.015 1.016-1.022 Urine protein assay by test strip, semi-quantitative TRACE NEGATIVE Urine glucose detection by automated test strip NE GATIVE NEGATIVE Erythrocytes detection in urine sediment by light micr oscopy TRACE NEGATIVE Urine ketones detection by automated test strip TR SARAI NEGATIVE Urine nitrite detection by test strip NEGATIVE NEGATIVE Urine total bilirubin detection by test strip 1+ NEGATIVE Urine urobilinogen measurement by automated test strip (mass/volume) 0.2 mg/dL NORMAL Urine leukocyte esterase detection by dipstick 2+ NEGATIVE Automated urine sediment erythrocyte cou nt by microscopy (number/high power field) 2+5 NRG Automated urine sediment leukocyte count by microscopy (number/high power field) 50+100 NRG Bacteria detection in urine sediment by light microsco py FEW NRG Crystals detection in urine sediment by light microsco py NONE NRG Casts detection in urine sediment by light microscopy NONE NRG Mucus detection in urine sediment by light microscopy NEGATIVE NRG Complete urinalysis with reflex to culture YES NRG Complete urinalysis with reflex to cultu re - 11/17/18 14:30 Urine color determination YELLOW NRG Urine clarity determination SL CLOUDY N RG Urine pH measurement by test strip 5.5 5-9 Specific gravity of urine by test strip 1.015 1.016-1.022 Urine protein assay by test strip, semi-quantitative TRACE NEGATIVE Urine glucose detection by automated test strip NE GATIVE NEGATIVE Erythrocytes detection in urine sediment by light micr oscopy 1+ NEGATIVE Urine ketones detection by automated test strip TR SARAI NEGATIVE Urine nitrite detection by test strip NEGATIVE NEGATIVE Urine total bilirubin detection by test strip 1+ NEGATIVE Urine urobilinogen measurement by automated test strip (mass/volume) 0.2 mg/dL NORMAL Urine leukocyte esterase detection by dipstick 2+ NEGATIVE Automated urine sediment erythrocyte cou nt by microscopy (number/high power field) [HPF] NRG Automated urine sediment leukocyte count by microscopy (number/high power field) [HPF] NRG Bacteria detection in urine sediment by light microsco py FEW NRG Squamous epithelial cells detection in u rine sediment by light microscopy 0-2 NRG Crystals detection in urine sediment by light microsco py NONE NRG Casts detection in urine sediment by light microscopy PRESENT NRG Mucus detection in urine sediment by light microscopy MODERATE NRG Complete urinalysis with reflex to culture YES NRG Hyaline casts detection in urine sediment by light king roscopy 0-2 NRG Bacterial urine culture - 11/17/18 14:30 Bacterial urine culture [id number] NRG COLONY COUNT 50,000 CFU/ML NRG FTX;REPORTABLE SUSCEPTIBILITY REPORT RCD 11/19 09:0 5 NRG FREE TEXT ENTRY 3 ID REPORT RECEIVED 11/18 18:05 NRG RML Sensitivity Panel - 11/17/18 14:30 Gentamicin susceptibility test by minimum inhibitory c oncentration > NRG Trimethoprim/sulfamethoxazole susceptibi lity test by minimum inhibitoryconcentration > NRG Levofloxacin susceptibility test by minimum inhibitory concentration > NRG Ampicillin susceptibility test by minimum inhibitory c oncentration > NRG Cefazolin susceptibility test by minimum inhibitory co ncentration 2 NRG Ceftriaxone susceptibility test by minimum inhibitory concentration <= NRG Ciprofloxacin susceptibility test by minimum inhibitor y concentration > NRG Meropenem susceptibility test by minimum inhibitory co ncentration <= NRG Nitrofurantoin susceptibility test by mi nimum inhibitory concentration 32 NRG Amoxicillin and clavulanate potassium susc KING = NRG Complete blood count (CBC) with automate d white blood cell (WBC) differential - 11/17/18 14:50 Blood leukocytes automated count (number/volume) 17.1 10*3/uL 4.3-11.0 Blood erythrocytes automated count (number/volume) 4.27 10*6/uL 4.35-5.85 Venous blood hemoglobin measurement (mass/volume) 12.9 g/dL 13.3-17.7 Blood hematocrit (volume fraction) 95 % 40-54 Automated erythrocyte mean corpuscular volume 95 [ foz_us] 80-99 Automated erythrocyte mean corpuscular h emoglobin (mass per erythrocyte) 30 pg 25-34 Automated erythrocyte mean corpuscular h emoglobin concentration measurement (mass/volume) 32 g/dL 32-36 Automated erythrocyte distribution width ratio 15. 1 % 10.0- 14.5 Automated blood platelet count (count/volume) 168 10*3/uL 130-400 Automated blood platelet mean volume measurement 9.6 [foz_us] 7.4-10.4 Automated blood neutrophils/100 leukocytes 81 % 42-75 Automated blood lymphocytes/100 leukocytes 10 % 12-44 Blood monocytes/100 leukocytes 7 % 0-12 Automated blood eosinophils/100 leukocytes 0 % 0-10 Automated blood basophils/100 leukocytes 0 % 0-10 Blood neutrophils automated count (number/volume) 13.8 10*3 1.8-7.8 Blood lymphocytes automated count (number/volume) 1.7 10*3 1.0-4.0 Blood monocytes automated count (number/volume) 1. 3 10*3 0.0-1.0 Automated eosinophil count 0.1 10*3/uL 0 .0-0.3 Automated blood basophil count (count/volume) 0.1 10*3/uL 0.0-0.1 PT panel in platelet poor plasma by coag ulation assay - 11/17/18 14:50 Prothrombin time (PT) in platelet poor plasma by coagu lation assay 14.8 s 12.2-14.7 INR in platelet poor plasma or blood by coagulation as say 1.2 0.8-1.4 Activated partial thromboplastin time (a PTT) in platelet poor plasma bycoagulation assay - 11/17/18 14:50 Activated partial thromboplastin time (a PTT) in platelet poor plasma bycoagulation assay 30 s 24-35 Blood lactic acid measurement (moles/vol ume) - 11/17/18 14:50 Blood lactic acid measurement (moles/volume) 1.17 mmol/L 0.50-2.00 Comprehensive metabolic panel - 11/17/18 14:50 Serum or plasma sodium measurement (moles/volume) 139 mmol/L 135-145 Serum or plasma potassium measurement (moles/volume) 3.9 mmol/L 3.6-5.0 Serum or plasma chloride measurement (moles/volume) 103 mmol/L 98-107 Carbon dioxide 25 mmol/L 21-32 Serum or plasma anion gap determination (moles/volume) 11 mmol/L 5-14 Serum or plasma urea nitrogen measurement (mass/volume ) 17 mg/dL 7-18 Serum or plasma creatinine measurement (mass/volume) 1.19 mg/dL 0.60-1.30 Serum or plasma urea nitrogen/creatinine mass ratio 14 NRG Serum or plasma creatinine measurement w ith calculation of estimated glomerular filtration rate 59 NRG Serum or plasma glucose measurement (mass/volume) 115 mg/dL 70-105 Serum or plasma calcium measurement (mass/volume) 8.3 mg/dL 8.5-10.1 Serum or plasma total bilirubin measurement (mass/volu me) 2.0 mg/dL 0.1-1.0 Serum or plasma alkaline phosphatase dalia surement (enzymatic activity/volume) 63 U/L 40-136 Serum or plasma aspartate aminotransfera se measurement (enzymatic activity/volume) 12 U/L 5-34 Serum or plasma alanine aminotransferase measurement (enzymatic activity/volume) 12 U/L 0-55 Serum or plasma protein measurement (mass/volume) 6.4 g/dL 6.4-8.2 Serum or plasma albumin measurement (mass/volume) 3.8 g/dL 3.2-4.5 CALCIUM CORRECTED 8.5 mg/dL 8.5-10.1 TROPONIN T - 11/17/18 14:50 TROPONIN T 14 % <=15 Blood manual differential performed dete ction - 11/17/18 14:50 Blood monocytes/100 leukocytes 8 % NRG Manual blood segmented neutrophils/100 leukocytes 60 % NRG Blood band neutrophils/100 leukocytes 18 % NRG Manual blood lymphocytes/100 leukocytes 11 % NRG Manual eosinophils/100 leukocytes in nose 2 % NRG Manual blood basophils/100 leukocytes 0 % NRG Manual blood lymphocytes variant/100 leukocytes 1 % NRG Blood schistocytes detection by light microscopy N A [facility] Bacterial blood culture - 11/17/18 14:50 Bacterial blood culture NG NRG Influenza virus A and B antigen detectio n - 11/17/18 14:55 FLU RESULT NEGATIVE FOR INFLUENZA A AND B ANTIGENS BY IA [facility] Bacterial blood culture - 11/17/18 15:35 Bacterial blood culture NG NRG CMP - 12/11/18 13:00 GLUCOSE 87 mg/dL 65-139 UREA NITROGEN (BUN) 15 mg/dL 7-25 CREATININE 1.10 mg/dL 0.70-1.18 eGFR NON-AFR. BURMESE 64 mL/min/1.73m2 > OR = 60 eGFR 74 mL/min/1.73m2 > OR = 60 BUN/CREATININE RATIO NOT APPLICABLE (calc) 6-22 SODIUM 140 mmol/L 135-146 POTASSIUM 3.8 mmol/L 3.5-5.3 CHLORIDE 104 mmol/L 98-110 CARBON DIOXIDE 27 mmol/L 20-32 CALCIUM 8.8 mg/dL 8.6-10.3 PROTEIN, TOTAL 7.0 g/dL 6.1-8.1 ALBUMIN 3.7 g/dL 3.6-5.1 GLOBULIN 3.3 g/dL (calc) 1.9-3.7 ALBUMIN/GLOBULIN RATIO 1.1 (calc) 1.0-2. 5 BILIRUBIN, TOTAL 1.3 mg/dL 0.2-1.2 ALKALINE PHOSPHATASE 71 U/L 40-115 AST 12 U/L 10-35 ALT 7 U/L 9-46 CBC w/MANUAL DIFF - 12/11/18 13:00 WHITE BLOOD CELL COUNT 8.5 Thousand/uL 3 .8-10.8 RED BLOOD CELL COUNT 4.53 Million/uL 4.2 0-5.80 HEMOGLOBIN 13.6 g/dL 13.2-17.1 HEMATOCRIT 40.6 % 38.5-50.0 MCV 89.6 fL 80.0-100.0 MCH 30.0 pg 27.0-33.0 MCHC 33.5 g/dL 32.0-36.0 RDW 13.6 % 11.0-15.0 PLATELET COUNT 255 Thousand/uL 140-400 MPV 9.7 fL 7.5-12.5 ABSOLUTE NEUTROPHILS 4760 cells/uL 1500- 7800 ABSOLUTE MONOCYTES 510 cells/uL 200-950 ABSOLUTE EOSINOPHILS 255 cells/uL 15-500 ABSOLUTE BASOPHILS 0 cells/uL 0-200 NEUTROPHILS 56.0 % NRG LYMPHOCYTES 35.0 % NRG MONOCYTES 6.0 % NRG EOSINOPHILS 3.0 % NRG BASOPHILS 0 % NRG ABSOLUTE LYMPHOCYTES 2975 cells/uL 850-3 900 PLATELET ESTIMATION ADEQUATE ADEQUATE CBC MORPHOLOGY NORMAL Complete blood count (CBC) with automate d white blood cell (WBC) differential - 12/14/18 11:25 Blood leukocytes automated count (number/volume) 7.9 10*3/uL 4.3-11.0 Blood erythrocytes automated count (number/volume) 4.05 10*6/uL 4.35-5.85 Venous blood hemoglobin measurement (mass/volume) 12.0 g/dL 13.3-17.7 Blood hematocrit (volume fraction) 38 % 40-54 Automated erythrocyte mean corpuscular volume 93 [ foz_us] 80-99 Automated erythrocyte mean corpuscular h emoglobin (mass per erythrocyte) 30 pg 25-34 Automated erythrocyte mean corpuscular h emoglobin concentration measurement (mass/volume) 32 g/dL 32-36 Automated erythrocyte distribution width ratio 14. 5 % 10.0- 14.5 Automated blood platelet count (count/volume) 205 10*3/uL 130-400 Automated blood platelet mean volume measurement 9.4 [foz_us] 7.4-10.4 Automated blood neutrophils/100 leukocytes 68 % 42-75 Automated blood lymphocytes/100 leukocytes 20 % 12-44 Blood monocytes/100 leukocytes 9 % 0-12 Automated blood eosinophils/100 leukocytes 2 % 0-10 Automated blood basophils/100 leukocytes 1 % 0-10 Blood neutrophils automated count (number/volume) 5.3 10*3 1.8-7.8 Blood lymphocytes automated count (number/volume) 1.6 10*3 1.0-4.0 Blood monocytes automated count (number/volume) 0. 7 10*3 0.0-1.0 Automated eosinophil count 0.2 10*3/uL 0 .0-0.3 Automated blood basophil count (count/volume) 0.0 10*3/uL 0.0-0.1 Comprehensive metabolic panel - 12/14/18 11:25 Serum or plasma sodium measurement (moles/volume) 137 mmol/L 135-145 Serum or plasma potassium measurement (moles/volume) 3.8 mmol/L 3.6-5.0 Serum or plasma chloride measurement (moles/volume) 99 mmol/L 98-107 Carbon dioxide 19 mmol/L 21-32 Serum or plasma anion gap determination (moles/volume) 19 mmol/L 5-14 Serum or plasma urea nitrogen measurement (mass/volume ) 16 mg/dL 7-18 Serum or plasma creatinine measurement (mass/volume) 1.11 mg/dL 0.60-1.30 Serum or plasma urea nitrogen/creatinine mass ratio 14 NRG Serum or plasma creatinine measurement w ith calculation of estimated glomerular filtration rate > NRG Serum or plasma glucose measurement (mass/volume) 111 mg/dL 70-105 Serum or plasma calcium measurement (mass/volume) 8.4 mg/dL 8.5-10.1 Serum or plasma total bilirubin measurement (mass/volu me) 1.5 mg/dL 0.1-1.0 Serum or plasma alkaline phosphatase dalia surement (enzymatic activity/volume) 71 U/L 40-136 Serum or plasma aspartate aminotransfera se measurement (enzymatic activity/volume) 11 U/L 5-34 Serum or plasma alanine aminotransferase measurement (enzymatic activity/volume) 8 U/L 0-55 Serum or plasma protein measurement (mass/volume) 6.6 g/dL 6.4-8.2 Serum or plasma albumin measurement (mass/volume) 3.0 g/dL 3.2-4.5 CALCIUM CORRECTED 9.2 mg/dL 8.5-10.1 THYROID STIMULATING HORMONE - 12/14/18 1 1:25 THYROID STIMULATING HORMONE 0.83 u[iU]/mL 0.35-4.94 Complete urinalysis with reflex to cultu re - 12/14/18 12:29 Urine color determination YELLOW NRG Urine clarity determination CLEAR NR G Urine pH measurement by test strip 6.0 5-9 Specific gravity of urine by test strip 1.010 1.016-1.022 Urine protein assay by test strip, semi-quantitative NEGATIVE NEGATIVE Urine glucose detection by automated test strip NE GATIVE NEGATIVE Erythrocytes detection in urine sediment by light micr oscopy NEGATIVE NEGATIVE Urine ketones detection by automated test strip NE GATIVE NEGATIVE Urine nitrite detection by test strip NEGATIVE NEGATIVE Urine total bilirubin detection by test strip NEGA TIVE NEGATIVE Urine urobilinogen measurement by automated test strip (mass/volume) 1.0 mg/dL NORMAL Urine leukocyte esterase detection by dipstick NEG ATIVE NEGATIVE Automated urine sediment erythrocyte cou nt by microscopy (number/high power field) [HPF] NRG Automated urine sediment leukocyte count by microscopy (number/high power field) [HPF] NRG Bacteria detection in urine sediment by light microsco py NEGATIVE NRG Squamous epithelial cells detection in u rine sediment by light microscopy 0-2 NRG Crystals detection in urine sediment by light microsco py NONE NRG Casts detection in urine sediment by light microscopy NONE NRG Mucus detection in urine sediment by light microscopy MODERATE NRG Complete urinalysis with reflex to culture NO NRG Prostate specific ag [mass/volume] in se rum or plasma - 03/21/19 09:25 PSA EQUIMOLAR (TYLER) 1.38 % 0.00-4.0 0 CMP - 04/18/19 11:25 GLUCOSE 86 mg/dL 65-99 UREA NITROGEN (BUN) 12 mg/dL 7-25 CREATININE 1.00 mg/dL 0.70-1.11 eGFR NON-AFR. BURMESE 71 mL/min/1.73m2 > OR = 60 eGFR 82 mL/min/1.73m2 > OR = 60 BUN/CREATININE RATIO NOT APPLICABLE (calc) 6-22 SODIUM 145 mmol/L 135-146 POTASSIUM 3.8 mmol/L 3.5-5.3 CHLORIDE 109 mmol/L 98-110 CARBON DIOXIDE 29 mmol/L 20-32 CALCIUM 8.5 mg/dL 8.6-10.3 PROTEIN, TOTAL 5.7 g/dL 6.1-8.1 ALBUMIN 3.4 g/dL 3.6-5.1 GLOBULIN 2.3 g/dL (calc) 1.9-3.7 ALBUMIN/GLOBULIN RATIO 1.5 (calc) 1.0-2. 5 BILIRUBIN, TOTAL 0.9 mg/dL 0.2-1.2 ALKALINE PHOSPHATASE 46 U/L 40-115 AST 12 U/L 10-35 ALT 7 U/L 9-46 Complete urinalysis with reflex to cultu re - 05/20/19 08:50 Urine color determination YELLOW NRG Urine clarity determination CLEAR NR G Urine pH measurement by test strip 7.5 5-9 Specific gravity of urine by test strip 1.010 1.016-1.022 Urine protein assay by test strip, semi-quantitative NEGATIVE NEGATIVE Urine glucose detection by automated test strip NE GATIVE NEGATIVE Erythrocytes detection in urine sediment by light micr oscopy NEGATIVE NEGATIVE Urine ketones detection by automated test strip NE GATIVE NEGATIVE Urine nitrite detection by test strip NEGATIVE NEGATIVE Urine total bilirubin detection by test strip NEGA TIVE NEGATIVE Urine urobilinogen measurement by automated test strip (mass/volume) 0.2 mg/dL NORMAL Urine leukocyte esterase detection by dipstick NEG ATIVE NEGATIVE Automated urine sediment erythrocyte cou nt by microscopy (number/high power field) NONE NRG Automated urine sediment leukocyte count by microscopy (number/high power field) [HPF] NRG Bacteria detection in urine sediment by light microsco py NEGATIVE NRG Squamous epithelial cells detection in u rine sediment by light microscopy RARE NRG Crystals detection in urine sediment by light microsco py NONE NRG Casts detection in urine sediment by light microscopy NONE NRG Mucus detection in urine sediment by light microscopy NEGATIVE NRG Complete urinalysis with reflex to culture NO NRG CULTURE, URINE - 07/16/19 13:40 CULTURE, URINE, ROUTINE SEE NOTE NRG CBC - 09/23/19 09:03 WHITE BLOOD CELL COUNT 6.9 Thousand/uL 3 .8-10.8 RED BLOOD CELL COUNT 4.51 Million/uL 4.2 0-5.80 HEMOGLOBIN 13.5 g/dL 13.2-17.1 HEMATOCRIT 41.5 % 38.5-50.0 MCV 92.0 fL 80.0-100.0 MCH 29.9 pg 27.0-33.0 MCHC 32.5 g/dL 32.0-36.0 RDW 13.7 % 11.0-15.0 PLATELET COUNT 168 Thousand/uL 140-400 MPV 10.6 fL 7.5-12.5 ABSOLUTE NEUTROPHILS 3450 cells/uL 1500- 7800 ABSOLUTE LYMPHOCYTES 2857 cells/uL 850-3 900 ABSOLUTE MONOCYTES 400 cells/uL 200-950 ABSOLUTE EOSINOPHILS 131 cells/uL 15-500 ABSOLUTE BASOPHILS 62 cells/uL 0-200 NEUTROPHILS 50 % NRG LYMPHOCYTES 41.4 % NRG MONOCYTES 5.8 % NRG EOSINOPHILS 1.9 % NRG BASOPHILS 0.9 % NRG LIPASE - 09/23/19 09:03 LIPASE 30 U/L 7-60 CULTURE, URINE - 10/11/19 15:09 CULTURE, URINE, ROUTINE SEE NOTE NRG TSH w/ FREE T4 - 10/17/19 10:21 TSH 2.02 mIU/L 0.40-4.50 T4, FREE 0.9 ng/dL 0.8-1.8 LIPID PANEL - 10/17/19 10:21 CHOLESTEROL, TOTAL 87 mg/dL <200 HDL CHOLESTEROL 25 mg/dL >40 TRIGLYCERIDES 120 mg/dL <150 LDL-CHOLESTEROL 41 mg/dL (calc) NRG CHOL/HDLC RATIO 3.5 (calc) <5.0 NON HDL CHOLESTEROL 62 mg/dL (calc) <130 CULTURE, URINE - 01/17/20 14:44 CULTURE, URINE, ROUTINE SEE NOTE NRG Encounters ACCT No. Visit Date/Time Discharge Status Pt. Type Provider Facility Loc./Unit Complaint [id number] 01/17/2020 14:45:00 01/17/2020 23:59: 59 CLS Outpatient SAM, MELISSA Acosta [facility] [id number] 01/17/2020 14:45:00 Document Registration [id number] 10/17/2019 17:45:00 Document Registration [id number] 10/11/2019 14:00:00 Document Registration [id number] 09/23/2019 08:00:00 Document Registration [id number] 07/16/2019 17:30:00 Document Registration [id number] 04/18/2019 17:30:00 Document Registration [id number] 12/11/2018 11:40:00 Document Registration [id number] 05/20/2019 08:33:00 019 10:19:00 DIS Emergency FIORELLA TORRES DO [facility] ER FS AMS [id number] 03/21/2019 09:12:00 23:59:59 CLS Outpatient LYRIC CHOPRA MD [facility] LAB FS N40.1 [id number] 12/14/2018 10:59:00 019 13:40:00 DIS Emergency FIORELLA TORRES DO [facility] ER FS [id number] 11/17/2018 14:22:00 019 18:21:00 DIS Emergency MIKHAIL GOMEZ DO [facility] ER FS DIZZY,MEMORY LOSS
[2020-02-22] MEDS ORDERED: KETOROLAC 30 MG/ML VIAL IVP ONE (10:00)
--- NOTE | 2020-02-22 10:08 | ED Back Pain ---
General Chief Complaint: Back Problems Stated Complaint: BACK PAIN Nursing Triage Note: Patient reports lower back pain that radiates down his legs into his feet bilaterally. Patient denies fall or injury. Nursing Sepsis Screen: No Definite Risk History of Present Illness Date Seen by Provider: February 22, 2020 Time Seen by Provider: 09:40 Initial Comments Patient complains of right low back pain radiating down the right posterior thigh getting worse for 2 weeks now unable to get up and ambulate is tried nothing for it is worse with movement better with rest no bowel or bladder incontinence no fever no diabetes no IV drug use or no immunosuppression Timing/Duration: Other (2 weeks getting worse) Severity: Moderate Pain/Injury Location: Back Radiation: Buttocks, Upper Legs Method of Injury: Unknown Modifying Factors: Improves With Immobilization; Worse With Movement Associated Symptoms: No fever, No weakness, No numbness in legs/feet, No t ingling in legs/feet; lower back pain; No loss of bladder control, No loss of bowel control Allergies and Home Medications Allergies Uncoded Allergies: SULFA (Adverse Reaction, Unknown, 11/17/18) Home Medications Benzonatate 100 Mg Capsule, 100 MG PO BID PRN for COUGH Prescribed by: FIORELLA TORRES on 12/14/18 1328 Meclizine HCl 25 Mg Tablet, 25 MG PO Q6H PRN for VERTIGO Prescribed by: FIORELLA TORRES on 12/14/18 1328 Patient Home Medication List Home Medication List Reviewed: Yes Review of Systems Constitutional: no symptoms reported EENTM: no symptoms reported Respiratory: no symptoms reported Cardiovascular: no symptoms reported Gastrointestinal: no symptoms reported Genitourinary: no symptoms reported Musculoskeletal: see HPI, back pain Skin: no symptoms reported Psychiatric/Neurological: No Symptoms Reported Past Fvybnoy-Gqykaa-Vsgmoy Hx Patient Social History Type Used: Cigarettes, Smokeless Tobacco Former Smoker, Quit: Sep 25, 1968 2nd Hand Smoke Exposure: No Recent Foreign Travel: No Contact w/Someone Who Travel: No Recent Infectious Disease Expo: No Recent Hopitalizations: No Seasonal Allergies Seasonal Allergies: No Past Medical History Cardiac: Yes (per Assisted Living records CAD and orthostatic hypotension) Coronary Artery Disease, Hypotension Neurological: Yes (memory loss per Assisted Living records) Dementia Genitourinary: Yes (hx urine retention) UTI-Chronic Psychosocial: Yes (poor historian, Depression per Assisted living records) Depression Physical Exam Vital Signs Vital Signs - First Documented 02/22/20 09:36 Temp 36.0 Pulse 56 Resp 18 B/P (MAP) 179/82 (114) Pulse Ox 98 O2 Delivery Room Air Capillary Refill : Less Than 3 Seconds Height, Weight, BMI Height: 6'1.00" Weight: 218lbs. oz. 98.242496rr; 25.00 BMI Method:Stated General Appearance: No Apparent Distress, WD/WN HEENT: PERRL/EOMI, Normal ENT Inspection, Moist Mucous Membranes Neck: Full Range of Motion, Normal Inspection, Non Tender, Supple Cardiovascular: Regular Rate, Rhythm, No Edema, No Gallop Respiratory: Chest Non Tender, Lungs Clear, Normal Breath Sounds, No Accessory Muscle Use Gastrointestinal: Normal Bowel Sounds, No Organomegaly, No Pulsatile Mass, Non Tender, Soft Back: Normal Inspection, No CVA Tenderness, No Vertebral Tenderness, Other (pain is diffuse across the L5-S1 part of the low back into the right buttocks there is no buttocks tenderness is no sciatic notch tenderness) Extremity: Normal Capillary Refill, Normal Inspection, Normal Range of Motion, Non Tender, No Calf Tenderness, Other (patient does have positive straight leg raising on the right but is able to flex the hip to 90 with normal internal/external rotation of the hips is strengths are symmetric and equal at the ankle) Neurologic/Psychiatric: Alert, Oriented x3, No Motor/Sensory Deficits, inlayer silver II- XII Norm as Tested Skin: Normal Color, Warm/Dry Progress/Results/Core Measures Results/Orders Lab Results Laboratory Tests Test 02/22/20 10:30 02/22/20 10:40 Range/Units White Blood Count 6.3 4.3-11.0 10^3/uL Red Blood Count 4.42 4.35-5.85 10^6/uL Hemoglobin 13.2 L 13.3-17.7 G/DL Hematocrit 40 40-54 % Mean Corpuscular Volume 90 80-99 FL Mean Corpuscular Hemoglobin 30 25-34 PG Mean Corpuscular Hemoglobin Concent 33 32-36 G/DL Red Cell Distribution Width 14.9 H 10.0-14.5 % Platelet Count 165 130-400 10^3/uL Mean Platelet Volume 9.4 7.4-10.4 FL Neutrophils (%) (Auto) 55 42-75 % Lymphocytes (%) (Auto) 36 12-44 % Monocytes (%) (Auto) 6 0-12 % Eosinophils (%) (Auto) 2 0-10 % Basophils (%) (Auto) 1 0-10 % Neutrophils # (Auto) 3.4 1.8-7.8 X 10^3 Lymphocytes # (Auto) 2.2 1.0-4.0 X 10^3 Monocytes # (Auto) 0.4 0.0-1.0 X 10^3 Eosinophils # (Auto) 0.1 0.0-0.3 10^3/uL Basophils # (Auto) 0.1 0.0-0.1 10^3/uL Neutrophils % (Manual) 49 % Lymphocytes % (Manual) 40 % Monocytes % (Manual) 9 % Eosinophils % (Manual) 1 % Basophils % (Manual) 1 % Band Neutrophils 0 % Blood Morphology Comment NORMAL Sodium Level 146 H 135-145 MMOL/L Potassium Level 3.0 L 3.6-5.0 MMOL/L Chloride Level 103 98-107 MMOL/L Carbon Dioxide Level 31 21-32 MMOL/L Anion Gap 12 5-14 MMOL/L Blood Urea Nitrogen 10 7-18 MG/DL Creatinine 1.06 0.60-1.30 MG/DL Estimat Glomerular Filtration Rate > 60 BUN/Creatinine Ratio 9 Glucose Level 100 70-105 MG/DL Calcium Level 8.6 8.5-10.1 MG/DL Corrected Calcium 8.8 8.5-10.1 MG/DL Total Bilirubin 1.3 H 0.1-1.0 MG/DL Aspartate Amino Transf (AST/SGOT) 13 5-34 U/L Alanine Aminotransferase (ALT/SGPT) 8 0-55 U/L Alkaline Phosphatase 59 40-136 U/L Total Protein 6.2 L 6.4-8.2 GM/DL Albumin 3.7 3.2-4.5 GM/DL Urine Color YELLOW Urine Clarity CLEAR Urine pH 7.5 5-9 Urine Specific [place] 1.010 L 1.016-1.022 Urine Protein NEGATIVE NEGATIVE Urine Glucose (UA) NEGATIVE NEGATIVE Urine Ketones NEGATIVE NEGATIVE Urine Nitrite NEGATIVE NEGATIVE Urine Bilirubin NEGATIVE NEGATIVE Urine Urobilinogen 0.2 < = 1.0 MG/DL Urine Leukocyte Esterase TRACE H NEGATIVE Urine RBC (Auto) NEGATIVE NEGATIVE Urine RBC NONE /HPF Urine WBC 0-2 /HPF Urine Squamous Epithelial Cells 0-2 /HPF Urine Crystals NONE /LPF Urine Bacteria NONE /HPF Urine Casts NONE /LPF Urine Mucus NEGATIVE /LPF Urine Culture Indicated NO My Orders Orders - LESVIA MORALES DO Ed Iv/Invasive Line Start (02/22/20 09:46) Ketorolac Injection (Toradol Injection) (02/22/20 10:00) Cbc And Manual Diff (02/22/20 09:46) Comprehensive Metabolic Panel (02/22/20 09:46) Ua Culture If Indicated (02/22/20 09:46) Ct Lumbar Spine Wo (02/22/20 09:46) Morphine Injection (Morphine Injection (02/22/20 11:58) Clonidine Tablet (Catapres Tablet) (02/22/20 12:00) Medications Given in ED Current Medications Medications Dose Ordered Sig/Isaac Route Start Time Stop Time Status Last Admin Dose Admin Ketorolac Tromethamine 30 mg ONCE ONCE IVP 02/22/20 10:00 02/22/20 10:01 DC 02/22/20 10:35 30 MG Vital Signs/I&O 02/22/20 09:36 Temp 36.0 Pulse 56 Resp 18 B/P (MAP) 179/82 (114) Pulse Ox 98 O2 Delivery Room Air Blood Pressure Mean: 114 Progress Progress Note : Progress Note Patient is 80-year-old with progressive steady low back pain worsening over 2 week period to the point of poorly able to ambulate. He's had no treatment prior to this evaluation. Differential includes pathologic fracture metastatic disease sciatica degenerative joint disease. There are no red flags of back pain such as immunosuppression malignancy IV drug use fever diabetes given his age and his immobility will progress to advance CT imaging to exclude pathologic fracture metastatic disease most likely symptomatic treatment and attempt to discharge home Departure Communication (Admissions) Time/Spoke to Consulting Phy: 12:15 Dr. Yo family medicine service who accepts the patient in admission Family Conversation Family was contacted to corroborated patient is at his baseline mental status Given the possibility of a epidural hematoma with intractable back pain patient probably needs more clarifications diagnosis with the radiology recommended MRI. Neurologically he is intact to symptomatology been going on for 2 weeks sepsis may represent his congenital disease versus a chronic epidural. She has no other risk factors bleeding which makes this less likely nonetheless will need his pain controlled physical therapy evaluation if it's degenerative joint disease and will need at least an evaluation with an MRI or 5 etiology of his pain. Impression Primary Impression: Back pain Additional Impression: Lumbar radiculopathy Disposition: ADMITTED INPATIENT Condition: Unchanged Admissions Decision to Admit Reason: Admit from ER (General) Decision to Admit/Date: February 22, 2020 Time/Decision to Admit Time: 12:15 Transfer Transfer Reason: Exceeds level of care Time Spoke to Accepting Phy: 12:15 Transfer Progress Notes Discussed case with Dr. Yo at [place] who accepted the patient admission for further diagnostic studies physical therapy rehabilitation potential and pain management for intractable back pain Transfer Time: 12:24 Departure-Patient Inst. Referrals: MELISSA VARGAS MD (PCP/Family) Primary Care Physician LESVIA MORALES DO February 22, 2020 10:08
[2020-02-22 10:40] LABS: BASOPHILS % (AUTO) 1 % (0-10); EOSINOPHILS % (AUTO) 2 % (0-10); HEMATOCRIT 40 % (40-54); HEMOGLOBIN 13.2 G/DL (13.3-17.7); LYMPHOCYTES % (AUTO) 36 % (12-44); MEAN CORPUSCULAR HEMOGLOBIN 30 PG (25-34); MEAN CORPUSCULAR HGB CONC 33 G/DL (32-36); MEAN CORPUSCULAR VOLUME 90 FL (80-99); MEAN PLATELET VOLUME 9.4 FL (7.4-10.4); MONOCYTES % (AUTO) 6 % (0-12); NEUTROPHILS # (AUTO) 3.4 X 10^3 (1.8-7.8); NEUTROPHILS % (AUTO) 55 % (42-75); PLATELET COUNT 165 10^3/uL (130-400); RED CELL DISTRIBUTION WIDTH 14.9 % (10.0-14.5); WHITE BLOOD COUNT 6.3 10^3/uL (4.3-11.0)
[2020-02-22 10:41] LABS: BASOPHILS # (AUTO) 0.1 10^3/uL (0.0-0.1); EOSINOPHILS # (AUTO) 0.1 10^3/uL (0.0-0.3); LYMPHOCYTES # (AUTO) 2.2 X 10^3 (1.0-4.0); MONOCYTES # (AUTO) 0.4 X 10^3 (0.0-1.0)
--- NOTE | 2020-02-22 10:42 | Diagnostic Imaging Report ---
PROCEDURE: CT lumbar spine without contrast. TECHNIQUE: Multiple contiguous axial images were obtained through the lumbar spine without the use of intravenous contrast. Sagittal and coronal reformations were then performed. Auto Exposure Controls were utilized during the CT exam to meet ALARA standards for radiation dose reduction. INDICATION: Low back pain radiates down both legs into the feet. EXAMINATION: CT lumbar spine without contrast dated 02/22/2020. FINDINGS: Axial imaging of the lumbar spine coronal and sagittal reconstructed imaging also performed. Alignment is preserved no subluxations. Multilevel anterior spurring noted but no fractures appreciated. There is multilevel suspected spur disc complex formation extending into the canal. At L4-L5 there is bilateral facet hypertrophy as well with findings causing at least moderate central stenosis. Moderate central narrowing suspected at L3-L4 with possible disc extrusion also noted. If there is any concern for an epidural hematoma or recent injury or infectious symptoms MRI could better characterize this finding. Degenerative findings at L2-L3 and also at L5-S1 also noted but without the central moderate narrowing. The visualized intra-abdominal structures demonstrate diffuse atherosclerotic disease. There is a hiatal hernia incompletely imaged. IMPRESSION: 1. Multilevel degenerative findings with multilevel areas of disc bulge suspected most marked at L3-L4 where there is hyperdensity along the posterior border of the disc space likely extruded disc material but please see above discussion and correlate with patient's symptoms. MRI could much better characterize the soft tissues and central canal as clinically indicated. Dictated by: Dictated on workstation # [id number]
[2020-02-22 10:53] LABS: BILIRUBIN,URINE NEGATIVE (NEGATIVE); CLARITY,URINE CLEAR; COLOR,URINE YELLOW; GLUCOSE, URINE (UA) NEGATIVE (NEGATIVE); KETONES,URINE NEGATIVE (NEGATIVE); LEUKOCYTE ESTERASE ,URINE TRACE (NEGATIVE); NITRITE,URINE NEGATIVE (NEGATIVE); PH,URINE 7.5 (5-9); PROTEIN,URINE NEGATIVE (NEGATIVE); SQUAMOUS EPITHELIAL CELL,UR 0-2 /HPF; WBC,URINE 0-2 /HPF
[2020-02-22 10:54] LABS: BUN/CREATININE RATIO 9; CARBON DIOXIDE 31 MMOL/L (21-32); CHLORIDE 103 MMOL/L (98-107); CREATININE SERUM 1.06 MG/DL (0.60-1.30); GFR ESTIMATED > 60; SODIUM 146 MMOL/L (135-145)
[2020-02-22 10:55] LABS: ALANINE AMINOTRANSFERASE 8 U/L (0-55); ALBUMIN 3.7 GM/DL (3.2-4.5); ALKALINE PHOSPHATASE 59 U/L (40-136); BILIRUBIN,TOTAL 1.3 MG/DL (0.1-1.0); CALCIUM 8.6 MG/DL (8.5-10.1); GLUCOSE 100 MG/DL (70-105); TOTAL PROTEIN 6.2 GM/DL (6.4-8.2)
[2020-02-22 11:30] LABS: BAND NEUTROPHILS 0 %; BASOPHILS % (MANUAL) 1 %; EOSINOPHILS % (MANUAL) 1 %; LYMPHOCYTES % (MANUAL) 40 %; MONOCYTES % (MANUAL) 9 %; NEUTROPHILS % (MANUAL) 49 %; RBC MORPH NORMAL
[2020-02-22] MEDS ORDERED: morphine INJ 10 MG/ML 1ML (SYR OR VIAL) IVP STA ×2 (11:58→15:39)
[2020-02-22] MEDS ORDERED: cloNIDine 0.1 MG (CATAPRES) TAB PO ONE (12:00)
--- NOTE | 2020-02-22 12:20 | NUR ---
Updated [facility] about patient being admitted to via [facility].
[2020-02-22] MEDS ORDERED: morphine INJ 4 MG/ML 1 ML (VIAL/SYRINGE) IV PRN (13:00)
[2020-02-22] MEDS ORDERED: cloNIDine 0.1 MG (CATAPRES) TAB PO PRN (13:00)
[2020-02-22] MEDS ORDERED: PATIENT MAY USE OWN MEDS, ALL PO SCH (13:00)
--- OUTSIDE RECORDS SUMMARY | 2020-02-22 15:20 | XMS REPORT | Continuity of Care Document ---
Author Organization Unknown Address Unknown Phone Unavailable Allergies Active Description Code Type Severity Reaction Onset Reported/Identified Relationship to Patient Clinical Status Yes No Known Drug Allergies [id number] Drug Allergy Unknown N/A 11/17/2018 Yes SULFA [...] FIORELLA Ot I25.10 ATHSCL HEART DISEASE OF [place] CORONARY 12/14/2018 FIORELLA TORRES DO Ot R42 [...] FIORELLA Ot I25.10 ATHSCL HEART DISEASE OF [place] CORONARY 12/17/2018 TORRES DO, FIORELLA Ot R42 DIZZINESS AND GIDDINESS 12/17/2018 TORRES DO, FIORELLA Ot Z87.440 PERSONAL HISTORY OF URINARY (TRACT) INFE 12/17/2018 TORRES DO, FIORELLA Ot Z87.891 PERSONAL HISTORY OF NICOTINE DEPENDENCE 12/17/2018 TORRES DO, FIORELLA Ot Z88.2 ALLERGY STATUS TO SULFONAMIDES STATUS 12/20/2018 OSGOOD DO, FIORELLA Ot F03.90 UNSPECIFIED DEMENTIA WITHOUT BEHAVIORAL 12/20/2018 TORRES DO, FIORELLA Ot I10 ESSENTIAL (PRIMARY) HYPERTENSION 12/20/2018 OSGOOD DO, FIORELLA Ot I25.10 ATHSCL HEART DISEASE OF [place] CORONARY 12/20/2018 OSGOOD DO, FIORELLA Ot R42 DIZZINESS AND GIDDINESS 12/20/2018 OSGOOD DO, FIORELLA Ot Z87.440 PERSONAL HISTORY OF URINARY (TRACT) INFE 12/20/2018 OSGOOD DO, FIORELLA Ot Z87.891 PERSONAL HISTORY OF NICOTINE DEPENDENCE 12/20/2018 OSGOOD DO, FIORELLA Ot Z88.2 ALLERGY STATUS TO [...] SYMPTOMS AND SIGNS INVOLVING THE GE 05/20/2019 OSGOOD DO, FIORELLA Ot F03.90 UNSPECIFIED DEMENTIA WITHOUT BEHAVIORAL 05/20/2019 OSGOOD DO, FIORELLA Ot G62.9 POLYNEUROPATHY, UNSPECIFIED 05/20/2019 OSGOOD DO, FIORELLA Ot I25.10 ATHSCL HEART DISEASE OF [place] CORONARY 05/20/2019 TORRES DO, FIORELLA Ot R20.2 PARESTHESIA OF SKIN 05/20/2019 OSGOOD DO, FIORELLA Ot Z87.440 PERSONAL HISTORY OF URINARY (TRACT) INFE 05/20/2019 TORRES DO, FIORELLA Ot Z87.891 PERSONAL HISTORY OF NICOTINE DEPENDENCE 05/20/2019 OSGOOD DO, FIORELLA Ot Z88.2 ALLERGY STATUS TO SULFONAMIDES STATUS 05/23/2019 FIORELLA TORRES DO Ot F03.90 UNSPECIFIED DEMENTIA WITHOUT BEHAVIORAL 05/23/2019 FIORELLA TORRES DO Ot G62.9 POLYNEUROPATHY, UNSPECIFIED 05/23/2019 FIORELLA TORRES DO Ot I25.10 ATHSCL HEART DISEASE OF [place] CORONARY 05/23/2019 FIORELLA TORRES DO Ot R20.2 [...] culture - 11/17/18 14:30 Bacterial urine culture [id number] NRG COLONY COUNT 50,000 CFU/ML NRG FTX;REPORTABLE [...] schistocytes detection by light microscopy N A [facility] Bacterial blood culture - 11/17/18 14:50 Bacterial blood culture NG NRG Influenza virus A and B antigen detectio n - 11/17/18 14:55 FLU RESULT NEGATIVE FOR INFLUENZA A AND B ANTIGENS BY IA [facility] Bacterial blood culture - 11/17/18 15:35 Bacterial blood culture NG NRG CMP - 12/11/18 13:00 GLUCOSE 87 mg/dL 65-139 UREA NITROGEN (BUN) 15 mg/dL 7-25 CREATININE 1.10 mg/dL 0.70-1.18 eGFR NON-AFR. FILIP[place] 64 mL/min/1.73m2 > OR = 60 eGFR [...] 7-25 CREATININE 1.00 mg/dL 0.70-1.11 eGFR NON-AFR. [place] 71 mL/min/1.73m2 > OR = 60 eGFR [...] Status Pt. Type Provider Facility Loc./Unit Complaint [id number] 01/17/2020 14:45:00 01/17/2020 23:59: 59 CLS Outpatient SAM, MELISSA Acosta [facility] [id number] 01/17/2020 14:45:00 Document Registration [id number] 10/17/2019 17:45:00 Document Registration [id number] 10/11/2019 14:00:00 Document Registration [id number] 09/23/2019 08:00:00 Document Registration [id number] 07/16/2019 17:30:00 Document Registration [id number] 04/18/2019 17:30:00 Document Registration [id number] 12/11/2018 11:40:00 Document Registration [id number] 05/20/2019 08:33:00 019 10:19:00 DIS Emergency FIORELLA TORRES DO [facility] ER FS AMS [id number] 03/21/2019 09:12:00 23:59:59 CLS Outpatient LYRIC CHOPRA MD [facility] LAB FS N40.1 [id number] 12/14/2018 10:59:00 019 13:40:00 DIS Emergency FIORELLA TORRES DO [facility] ER FS [id number] 11/17/2018 14:22:00 019 18:21:00 DIS Emergency MIKHAIL GOMEZ DO [facility] ER FS DIZZY,MEMORY LOSS
--- NOTE | 2020-02-22 16:40 | NUR ---
RICKY JORDAN admitted to room 414-1, with an admitting diagnosis of BACK PAIN, on 02/22/20 from [facility] via AMBULANCE, accompanied by STAFF. RICKY JORDAN introduced to surroundings, call light, bed controls, phone, TV, temperature control, lights, meal times, smoking policy, visitor policy, side rail policy, bathrooms and showers. Patient Rights given to patient in the handbook. RICKY JORDAN verbalizes understanding that [facility] is not responsible for the loss or damage to any personal effects or valuables that are kept in the patients posession during their hospitalization. The following Patient Care Plans were discussed with the PATIENT: Discharge Planning, INJURY, PAIN, KNOWLEDGE, AND FALLS. RICKY JORDAN verbalizes understanding of Interdisciplinary Patient Education.
[2020-02-22 16:47] VITALS: BP 175/84
[2020-02-22] MEDS ORDERED: DONE10TA41 PO (17:45)
[2020-02-22] MEDS ORDERED: ROPI1TAB PO (17:45)
[2020-02-22] MEDS ORDERED: QUET100T33 PO (17:45)
[2020-02-22] MEDS ORDERED: HALOPERIDOL 5 MG/ML (HALDOL) AMP IM PRN (18:00)
[2020-02-22] MEDS ORDERED: amLODIPine 5 MG (NORVASC) TAB PO ONE (18:00)
[2020-02-22] MEDS: ACETAMINOPHEN 500 MG TAB (TYLENOL) PO SCH ×2 (18:37→22:51)
[2020-02-22] MEDS: KETOROLAC 30 MG/ML VIAL IV SCH ×2 (18:38→22:51)
[2020-02-22] MEDS: ENOXAPARIN 40 MG/0.4 ML (LOVENOX) SYR SC SCH (18:38)
[2020-02-22 19:26] VITALS: BP 119/68
[2020-02-22] MEDS: rOPINIRole 1 MG (REQUIP) TABLET PO SCH (22:45)
[2020-02-22] MEDS: QUEtiapine 100 MG (SEROquel) TAB IMMEDIATE RELEASE PO SCH (22:45)
[2020-02-22] MEDS: DONEPEZIL 10 MG (ARICEPT) TAB PO SCH (22:50)
[2020-02-23 00:08] VITALS: BP 139/82
[2020-02-23 03:52] VITALS: BP 132/73
[2020-02-23 05:46] LABS: BASOPHILS % (AUTO) 1 % (0-10); EOSINOPHILS # (AUTO) 0.1 10^3/uL (0.0-0.3); EOSINOPHILS % (AUTO) 1 % (0-10); HEMATOCRIT 38 % (40-54); HEMOGLOBIN 12.4 G/DL (13.3-17.7); LYMPHOCYTES # (AUTO) 2.4 X 10^3 (1.0-4.0); LYMPHOCYTES % (AUTO) 29 % (12-44); MEAN CORPUSCULAR HGB CONC 33 G/DL (32-36); MEAN CORPUSCULAR VOLUME 91 FL (80-99); MEAN PLATELET VOLUME 9.7 FL (7.4-10.4); MONOCYTES # (AUTO) 0.5 X 10^3 (0.0-1.0); MONOCYTES % (AUTO) 6 % (0-12); NEUTROPHILS # (AUTO) 5.3 X 10^3 (1.8-7.8); NEUTROPHILS % (AUTO) 64 % (42-75); PLATELET COUNT 164 10^3/uL (130-400); RED CELL DISTRIBUTION WIDTH 15.4 % (10.0-14.5); WHITE BLOOD COUNT 8.3 10^3/uL (4.3-11.0)
[2020-02-23 05:49] LABS: MEAN CORPUSCULAR HEMOGLOBIN 29 PG (25-34)
[2020-02-23 05:57] LABS: ALBUMIN 3.3 GM/DL (3.2-4.5); CHLORIDE 105 MMOL/L (98-107); POTASSIUM 3.4 MMOL/L (3.6-5.0); SODIUM 145 MMOL/L (135-145)
[2020-02-23 05:59] LABS: GLUCOSE 94 MG/DL (70-105); TOTAL PROTEIN 5.8 GM/DL (6.4-8.2)
[2020-02-23 06:00] LABS: CARBON DIOXIDE 30 MMOL/L (21-32)
[2020-02-23 06:01] LABS: BILIRUBIN,TOTAL 1.8 MG/DL (0.1-1.0)
[2020-02-23 06:02] LABS: ALKALINE PHOSPHATASE 58 U/L (40-136)
[2020-02-23 06:03] LABS: CREATININE SERUM 1.03 MG/DL (0.60-1.30); GFR ESTIMATED > 60
[2020-02-23 06:04] LABS: BUN/CREATININE RATIO 15
[2020-02-23 06:06] LABS: ALANINE AMINOTRANSFERASE 9 U/L (0-55)
[2020-02-23] MEDS: ACETAMINOPHEN 500 MG TAB (TYLENOL) PO SCH ×3 (06:52→18:45)
[2020-02-23] MEDS: KETOROLAC 30 MG/ML VIAL IV SCH ×2 (06:59→13:48)
[2020-02-23] MEDS: amLODIPine 5 MG (NORVASC) TAB PO SCH (07:41)
[2020-02-23 08:00] VITALS: BP 161/74
--- NOTE | 2020-02-23 08:16 | History & Physical-Hospitalist ---
History of Present Illness HPI/Chief Complaint CC: Back pain with confusion HPI: This is an 80yo[place] patient of Dr Martinez who has a h/o dementia and behavior disturbances who presented to the ER with complaints of back pain. Apparently his details are inconsistent but apparently he reports worsened back pain with leg burning the past few days and could not walk so he was admitted after CT scan revealed a disc herniation but no evidence of a neurological emergency. Patient has dementia and is [place] so it makes communication difficult. Patient refused to eat migel this morning but hasn't really reports much pain since arrival yesterday. I have ordered MRI to fully evaluate the CT abnl. Source: patient Exam Limitations: other (dementia) Date Seen 02/23/20 Time Seen by a Provider: 09:00 Attending Physician Irma Yo Maxwell MD Referring Physician Date of Admission February 22, 2020 at 15:16 Home Medications & Allergies Home Medications Reviewed patient Home Medication Reconciliation performed by pharmacy medication reconciliations ekg technician and/or nursing. Patients Allergies have been reviewed. Allergies Allergies Uncoded Allergies SULFA ( Adverse Reaction, Unknown, 11/17/18) Past Gwwalfh-Piishj-Yynmxl Hx Past Med/Social Hx: Reviewed Nursing Past Med/Soc Hx, Reviewed and Corrections made Patient Social History Marrital Status: single Employed/Student: retired Alcohol Use: Denies Use Recreational Drug Use: No Smoking Status: Former Smoker Former Smoker, Quit: Sep 25, 1968 Type Used: Cigarettes, Smokeless Tobacco 2nd Hand Smoke Exposure: No Recent Foreign Travel: No Contact w/other who traveled: No Recent Hopitalizations: No Recent Infectious Disease Expo: No Seasonal Allergies Seasonal Allergies: No Past Medical History Cardiac: Coronary Artery Disease, Hypotension Neurological: Dementia Genitourinary: UTI-Chronic Musculoskeletal: Chronic Back Pain Endocrine: Hypothyroidsim Psychosocial: Depression Family History Patient reports no known family medical history. Review of Systems Constitutional: see HPI Musculoskeletal: back pain Psychiatric/Neurological: Other (confusion) Physical Exam Physical Exam Vital Signs Vital Signs - First Documented 02/22/20 09:36 Temp 36.0 Pulse 56 Resp 18 B/P (MAP) 179/82 (114) Pulse Ox 98 O2 Delivery Room Air Capillary Refill : Less Than 3 Seconds Height, Weight, BMI Height: 6'1.00" Weight: 218lbs. oz. 98.012732xk; 29.32 BMI Method:Stated General Appearance: No Apparent Distress, WD/WN, Chronically ill, Obese Neck: Full Range of Motion, Normal Inspection, Non Tender Respiratory: Chest Non Tender, Lungs Clear, Normal Breath Sounds, No Accessory Muscle Use, No Respiratory Distress Cardiovascular: Regular Rate, Rhythm, No Edema, No Gallop, No JVD, No Murmur, Normal Peripheral Pulses Gastrointestinal: Normal Bowel Sounds, No Organomegaly, No Pulsatile Mass, Non Tender, Soft Back: Decreased Range of Motion, Muscle Spasm, Vertebral Tenderness Extremity: Normal Capillary Refill, Normal Inspection, Normal Range of Motion, Non Tender, No Calf Tenderness, No Pedal Edema Neurologic/Psychiatric: Alert, Oriented x3, No Motor/Sensory Deficits, Normal Mood/Affect, account liaison II-XII Norm as Tested, Disoriented Results Results/Procedures Labs Laboratory Tests 02/22/20 10:30 02/23/20 05:10 Patient resulted labs reviewed. Assessment/Plan Admission Diagnosis Assessment: Severe and incapacitating back pain with herniated disc on CT needs MRI and supportive care since can't ambulate or keep self safe Dementia with behavior disturbances HTN Hypothyroidism UTI's Hypokalemia Plan: Pain meds Supportive care Lovenox MRI Dementia home meds Admission Status: Inpatient Order (span 2 midnights) Reason for Inpatient Admission: back pain precludes ambulation and dementia precludes safety Diagnosis/Problems Diagnosis/Problems (1) Lumbar radiculopathy Status: Acute (2) Dementia (3) Psychosis (4) Hypothyroidism (5) Hypertension (6) Hypokalemia (7) Back pain Status: Acute Qualifiers: Chronicity: acute Sciatica presence: with sciatica Sciatica laterality: sciatica of right side Clinical Quality Measures DVT/VTE Risk/Contraindication: Risk Factor Score Per Nursin RFS Level Per Nursing on Admit: 4+=Very High IRMA YO DO February 23, 2020 08:16
--- NOTE | 2020-02-23 12:33 | NUR ---
UP IN CHAIR WITH CHAIR ALARM ON, DEE WELL, ASSISTED TO BSC, VOIDED CLEAR YELLOW URINE, PATIENT PULLED SALINE LOCK OUT
[2020-02-23 13:00] VITALS: BP 127/72
[2020-02-23] MEDS ORDERED: KCL 10 MEQ TAB (MICRO K) PO ONE (13:45)
[2020-02-23 16:04] VITALS: BP 141/52
[2020-02-23] MEDS: KCL 10 MEQ TAB (MICRO K) PO SCH (18:09)
[2020-02-23] MEDS: ENOXAPARIN 40 MG/0.4 ML (LOVENOX) SYR SC SCH (18:10)
[2020-02-23 20:17] VITALS: BP 156/78
[2020-02-23] MEDS: rOPINIRole 1 MG (REQUIP) TABLET PO SCH (20:36)
[2020-02-23] MEDS: DONEPEZIL 10 MG (ARICEPT) TAB PO SCH (20:36)
[2020-02-23] MEDS: QUEtiapine 100 MG (SEROquel) TAB IMMEDIATE RELEASE PO SCH (20:36)
[2020-02-24 00:05] VITALS: BP 145/67
[2020-02-24] MEDS: ACETAMINOPHEN 500 MG TAB (TYLENOL) PO SCH ×3 (03:07→12:47)
[2020-02-24 04:10] VITALS: BP 149/81
[2020-02-24 05:18] LABS: BASOPHILS % (AUTO) 0 % (0-10); EOSINOPHILS # (AUTO) 0.1 10^3/uL (0.0-0.3); EOSINOPHILS % (AUTO) 1 % (0-10); HEMATOCRIT 38 % (40-54); HEMOGLOBIN 12.6 G/DL (13.3-17.7); LYMPHOCYTES # (AUTO) 1.6 X 10^3 (1.0-4.0); LYMPHOCYTES % (AUTO) 19 % (12-44); MEAN CORPUSCULAR HEMOGLOBIN 30 PG (25-34); MEAN CORPUSCULAR HGB CONC 33 G/DL (32-36); MEAN CORPUSCULAR VOLUME 91 FL (80-99); MEAN PLATELET VOLUME 9.4 FL (7.4-10.4); MONOCYTES # (AUTO) 0.6 X 10^3 (0.0-1.0); MONOCYTES % (AUTO) 7 % (0-12); NEUTROPHILS # (AUTO) 6.2 X 10^3 (1.8-7.8); NEUTROPHILS % (AUTO) 73 % (42-75); PLATELET COUNT 152 10^3/uL (130-400); RED CELL DISTRIBUTION WIDTH 15.2 % (10.0-14.5); WHITE BLOOD COUNT 8.5 10^3/uL (4.3-11.0)
[2020-02-24 05:35] LABS: ALBUMIN 3.3 GM/DL (3.2-4.5); CHLORIDE 107 MMOL/L (98-107); POTASSIUM 3.2 MMOL/L (3.6-5.0); SODIUM 142 MMOL/L (135-145)
[2020-02-24 05:37] LABS: GLUCOSE 93 MG/DL (70-105)
[2020-02-24 05:38] LABS: TOTAL PROTEIN 5.9 GM/DL (6.4-8.2)
[2020-02-24 05:39] LABS: BILIRUBIN,TOTAL 1.4 MG/DL (0.1-1.0); CARBON DIOXIDE 25 MMOL/L (21-32)
[2020-02-24 05:41] LABS: ALKALINE PHOSPHATASE 59 U/L (40-136); CREATININE SERUM 0.95 MG/DL (0.60-1.30); GFR ESTIMATED > 60
[2020-02-24 05:42] LABS: BUN/CREATININE RATIO 17
[2020-02-24 05:44] LABS: ALANINE AMINOTRANSFERASE 10 U/L (0-55)
--- NOTE | 2020-02-24 06:35 | Progress Note - Hospitalist ---
Subjective HPI/CC On Admission Date Seen by Provider: Feb 24, 2020 CC: Back pain with confusion HPI: This is an 80yoWM [place] patient of Dr Martinez who has a h/o dementia and behavior disturbances who presented to the ER with complaints of back pain. Apparently his details are inconsistent but apparently he reports worsened back pain with leg burning the past few days and could not walk so he was admitted after CT scan revealed a disc herniation but no evidence of a neurological emergency. Patient has dementia and is [place] so it makes communication difficult. Patient refused to eat migel this morning but hasn't really reports much pain since arriv al yesterday. I have ordered MRI to fully evaluate the CT abnl. Objective Exam Vital Signs Vital Signs Date Time Temp Pulse Resp B/P (MAP) Pulse Ox O2 Delivery O2 Flow Rate FiO2 02/24/20 12:32 37.0 74 18 166/84 (111) 97 Room Air Capillary Refill : Less Than 3 Seconds Results/Procedures Lab Laboratory Tests 02/24/20 04:30 Patient resulted labs reviewed. Diagnosis/Problems Diagnosis/Problems (1) Lumbar radiculopathy Status: Acute (2) Dementia (3) Psychosis (4) Hypothyroidism (5) Hypertension (6) Hypokalemia (7) Back pain Status: Acute Qualifiers: Chronicity: acute Sciatica presence: with sciatica Sciatica laterality: sciatica of right side Clinical Quality Measures DVT/VTE Risk/Contraindication: Risk Factor Score Per Nursin RFS Level Per Nursing on Admit: 4+=Very High JEFF COLEMAN DO Feb 24, 2020 06:35
[2020-02-24] MEDS: amLODIPine 5 MG (NORVASC) TAB PO SCH (08:20)
[2020-02-24] MEDS: KCL 10 MEQ TAB (MICRO K) PO SCH (08:20)
[2020-02-24 08:30] VITALS: BP 164/83
[2020-02-24] MEDS ORDERED: TMSL.4C PO (09:40)
[2020-02-24] MEDS ORDERED: ATOR40TA70 PO (09:40)
[2020-02-24] MEDS ORDERED: ACET-2267 PO (09:40)
[2020-02-24] MEDS ORDERED: SERT50TA9 PO (09:40)
[2020-02-24] MEDS ORDERED: MECL-149 PO (09:40)
[2020-02-24] MEDS ORDERED: NITR0.4T39 SL (09:40)
[2020-02-24] MEDS ORDERED: CETI10TA17 PO (09:40)
[2020-02-24] MEDS ORDERED: CHOL500050 PO (09:40)
[2020-02-24] MEDS ORDERED: FLDR.1T PO (09:40)
[2020-02-24] MEDS ORDERED: ASPI-983 PO (09:40)
[2020-02-24] MEDS ORDERED: OMEP40CA27 PO (09:40)
[2020-02-24] MEDS ORDERED: GABA300C PO (09:40)
--- NOTE | 2020-02-24 09:42 | NUR ---
ENTERED THE MED REC USING THE MAR FROM [facility]
--- NOTE | 2020-02-24 09:53 | Occupational Therapy Eval ---
OT Evaluation-General/PLF Medical Diagnosis Admission Date February 22, 2020 at 15:16 Medical Diagnosis: back pain Onset Date: February 22, 2020 Therapy Diagnosis Therapy Diagnosis: impaired ADLs/functional mobility Height/Weight Height (Feet): 6 Height (Inches): 1.00 Weight (Pounds): 218 Precautions Precautions/Isolations: Fall Prevention, Standard Precautions Referral Physician: Srinath Referral Reason: Evaluation/Treatment Medical History Pertinent Medical History: Dementia Additional Medical History HUSLIA Current History ED due to c/o back pain Reviewed History: Yes Social History Home: Assisted Living ADL-Prior Level of Function SCALE: Activities may be completed with or without assistive devices. 5-Wygwcyqkdg-ugrvuos completes the activity by him/herself with no assistance from a helper. 5-Set-up or Clean-up Assistance-helper sets up or cleans up; patient completes activity. [place] assists only prior to or following the activity. 4-Supervision or Touching Assistance-helper provides verbal cues and/or touching/steadying and/or contact guard assistance as patient completes activity. Assistance may be provided throughout the activity or intermittently. 3-Partial/Moderate Assistance-helper does LESS THAN HALF the effort. [place] lifts, holds or supports trunk or limbs, but provides less than half the effort. 2-Substantial/Maximal Assistance-helper does MORE THAN HALF the effort. [place] lifts or holds trunk or limbs and provides more than half the effort. 7-Wgiksfgzk-muyqjc does ALL the effort. Patient does none of the effort to complete the activity. Or, the assistance of 2 or more helpers is required for the patient to complete the activity. If activity was not attempted, code reason: 7-Patient Refused. 9-Not Applicable-not attempted and the patient did not perform the activity before the current illness, exacerbation or injury. 10-Not Attempted due to Environmental Limitations-(lack of equipment, weather restraints, etc.). 88-Not Attempted due to Medical Conditions or Safety Concerns. ADL PLOF Comments Pt is a poor historian and unable to recall PLOF. OT asked pt if he needed assistance with bathing and dressing, pt replied "somewhat". Pt most likely required some assistance with ADLs, but level of assistance is unknown. Self Care: Needed Some Help Functional Cognition: Needed Some Help OT Current Status Subjective Pt laying in bed, agreeable to OT evaluation. He reports "feet burning", "cold", "pain". OT attempted to adjust sheets over pt but he still reports pain, unable to provide pain rating. Mental Status/Objective Patient Orientation: Person, Confused Current Hand Dominance: Right Upper Extremity ROM WFL Upper Extremity Sensation WFL UEs, he did not report any tingling/numbness in his hands, just his feet. Other Treatments Pt laying in bed at start of session, reports burning/cold pain in bilateral feet. OT attempted to assist pt with repositioning to comfort but pt continued to report pain. OT educated pt on purpose and benefits of OT. Pt then attempted to provide information about PLOF/home set up but he was unable to recall information. Pt was oriented to person only. Pt attempted to participate in UE screen but had difficulty following directions/answering questions. Post OT session, pt laying in bed, call light in reach and all need met. Education OT Patient Education: Correct positioning, Energy conservation, Progress toward Goal/Update tx plan, Purpose of tx/functional activities, Rehab process Teaching Recipient: Patient Teaching Methods: Discussion Response to Teaching: Reinforcement Needed OT Marketing Sales Manager Goals Longterm Goals Time Frame: Mar 13, 2020 Eating (QC): 5 Oral Hygiene (QC): 5 Toileting Hygiene (QC): 4 Shower/Bathe Self (QC): 3 Upper Body Dressing (QC): 5 Lower Body Dressing (QC): 3 On/Off Footwear (QC): 3 1=Demonstrate adherence to instructed precautions during ADL tasks. 2=Patient will verbalize/demonstrate understanding of assistive devices/modifications for ADL. 3=Patient will improve strength/tolerance for activity to enable patient to perform ADL's. OT Education/Plan Problem List/Assessment Assessment: Decreased Activ Tolerance, Impaired Funct Balance, Impaired I ADL's, Impaired Self-Care Skills Discharge Recommendations Plan/Recommendations: Continue POC Treatment Plan/Plan of Care Patient would benefit from OT for education, treatment and training to promote independence in ADL's, mobility, safety and/or upper extremity function for ADL's. Plan of Care: ADL Retraining, Functional Mobility, UE Funct Exercise/Act Treatment Duration: Mar 06, 2020 Frequency: 5 times per week Estimated Hrs Per Day: .25 hour per day Agreement: Yes Rehab Potential: Guarded Time/GCodes Start Time: 09:25 Stop Time: 09:34 Total Time Billed (hr/min): 9 Billed Treatment Time 1, CHRISTI TOLBERT OT Feb 24, 2020 09:53
--- NOTE | 2020-02-24 10:59 | Diagnostic Imaging Report ---
CLINICAL INDICATION: Patient with low back pain that radiates down both legs into feet. Patient denies fall or injury. EXAM: MRI of the lumbar spine performed without IV contrast. Sagittal T2, sagittal T1, sagittal T2 fat-sat, and axial T2. COMPARISON: CT scan of the lumbar spine without contrast dated 02/22/2020. FINDINGS: There is no acute lumbar spine fracture or dislocation. There is no significant abnormal lumbar spine signal. There is an area of low T1 signal involving the right L5 vertebra measuring 14 mm in craniocaudal dimension. This area represents sclerosis and trabecular thickening which may represent a lipid poor intraosseous hemangioma or area of sclerosis. There is no significant paraspinal soft tissue abnormality. The visualized portions of the distal thoracic spinal cord, conus medullaris, and cauda equina nerve roots are unremarkable. The conus medullaris tip is seen at the upper L1 vertebral body level. L1-L2: There is a mild diffuse disc bulge with hypertrophic far left lateral disc spurs. There is mild left neural foramen narrowing and minimal right neural foramen narrowing. There is no significant central canal narrowing. There is mild bilateral facet arthropathy. L2-L3: There is a diffuse disc bulge with superimposed small posterior disc herniation. There is mild loss of disc space height. There is moderate bilateral facet arthropathy. There is mild central canal narrowing. There is krqj-yg-ddepbrse bilateral neural foramen narrowing. L3-L4: There is diffuse disc bulge with disc spurs extending posteriorly and into the foraminal regions bilaterally. There is severe bilateral neural foramen narrowing. There is zhrc-ah-zothiquh central canal stenosis. There is moderate bilateral facet arthropathy/hypertrophy. L4-L5: There is diffuse disc bulge with disc spurs involving the bilateral neural foramen regions. There is severe right facet arthropathy and moderate left facet arthropathy. There is no significant central canal narrowing. There is moderate right neural foramen narrowing. There is gstusxlm-za-mopick left neural foramen narrowing. L5-S1: There is a diffuse disk bulge with severe loss of disc space height and disc spurs and left foraminal region. There is moderate bilateral facet arthropathy. There is no significant central canal narrowing. There is xwxzkvsg-gk-djuywa bilateral neural foramen narrowing. IMPRESSION: 1: There is multilevel lumbar spine degenerative disease, as described above. 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 Dictated by: Dictated on workstation # [id number]
--- NOTE | 2020-02-24 11:41 | Physical Therapy Evaluation ---
PT Evaluation-General Medical Diagnosis Admission Date February 22, 2020 at 15:16 Medical Diagnosis: back pain Onset Date: February 22, 2020 Therapy Diagnosis Therapy Diagnosis: debility/weakness Height/Weight Height (Feet): 6 Height (Inches): 1.00 Weight (Pounds): 218 Precautions Precautions/Isolations: Fall Prevention, Standard Precautions Referral Physician: Srinath Reason for Referral: Evaluation/Treatment Medical History Pertinent Medical History: CAD, Dementia Additional Medical History hypotension Current History ER secondary to back pain radiating to right posterior thigh Reviewed History: Yes Social History Home: Assisted Living Prior Prior Level of Function SCALE: Activities may be completed with or without assistive devices. 1-Qhflzzdvmf-dsdrpqz completes the activity by him/herself with no assistance from a helper. 5-Set-up or Clean-up Assistance-helper sets up or cleans up; patient completes activity. [place] assists only prior to or following the activity. 4-Supervision or Touching Assistance-helper provides verbal cues and/or touching/steadying and/or contact guard assistance as patient completes activity. Assistance may be provided throughout the activity or intermittently. 3-Partial/Moderate Assistance-helper does LESS THAN HALF the effort. Naoma lifts, holds or supports trunk or limbs, but provides less than half the effort. 2-Substantial/Maximal Assistance-helper does MORE THAN HALF the effort. [place] lifts or holds trunk or limbs and provides more than half the effort. 5-Dvjimcucj-kdhvyj does ALL the effort. Patient does none of the effort to complete the activity. Or, the assistance of 2 or more helpers is required for the patient to complete the activity. If activity was not attempted, code reason: 7-Patient Refused. 9-Not Applicable-not attempted and the patient did not perform the activity before the current illness, exacerbation or injury. 10-Not Attempted due to Environmental Limitations-(lack of equipment, weather restraints, etc.). 88-Not Attempted due to Medical Conditions or Safety Concerns. Bed Mobility: 5 Transfers (B,C,W/C): 5 Gait: 5 Stairs: 9 Indoor Mobility (Ambulation): Needed Some Help Prior Devices Use: Walker PT Evaluation-Current Subjective Patient is in bed and denies pain. Pain Numeric Pain Scale: 0-No Pain Location: No Pain Reported Objective Patient Orientation: Confused ROM/Strength ROM Lower Extremities bilateral LE WFL Strength Lower Extremities 4/5 grossly bilateral LE Integumentary/Posture Integumentary refer to nursing notes Bowel Incontinence: No Bladder Incontinence: Yes Posture WFL Neuromuscular (Tone, Coordination, Reflexes) grossly intact Sensory Vision: Functional Hearing: Impaired Hand Dominance: Right Sensation Right Lower Extremit: Intact Sensation Left Lower Extremity: Intact Transfers Roll Left to Right (QC): 5 Sit to Lying (QC): 5 Lying to Sitting/Side of Bed(Q: 5 Sit to Stand (QC): 4 Chair/Tta-ct-Txgsf Xfer(QC): 4 CGA for safety Gait Does the Patient Walk?: Yes Mode of Locomotion: Walk Anticipated Mode of Locomotion: Walk Walk 10 feet (QC): 4 Walk 50 ft with 2 Turns(QC): 4 Walk 150 ft (QC): 4 Distance: 150' Gait Assistive Device: FWW Comments/Gait Description extended UE's with FWW use with inability to follow simple direction for body placement in FWW for safety Wheelchair Training Does the Pt Use a Wheelchair?: No Balance Sitting Static: Normal Sitting Dynamic: Normal Standing Static: Normal Standing Dynamic: Normal Assessment/Needs 80 y.o. male, will be seen short term by skilled PT to address functional mobility to ensure safe return to AL at maximum. Rehab Potential: Fair PT Marine Engineer Cpvec Goals Marine Engineer Cpvec Goals PT Marine Engineer Cpvec Goals Time Frame: Feb 29, 2020 Roll Left & Right (QC): 5 Sit to Lying (QC): 5 Lying-Sitting on Side/Bed(QC): 5 Sit to Stand (QC): 5 Chair/Jhs-yo-Yynax Xfer(QC): 5 Toilet Transfer (QC): 5 Does the Patient Walk: Yes Walk 10 feet (QC): 5 Walk 50ft with 2 Turns (QC): 5 Walk 150 ft (QC): 5 PT Plan Problem List Problem List: Safety, Gait Treatment/Plan Treatment Plan: Continue Plan of Care Treatment Plan: Bed Mobility, Education, Functional Activity Ryne, Functional Strength, Gait, Safety, Therapeutic Exercise, Transfers Treatment Duration: Feb 29, 2020 Frequency: 6 times per week Estimated Hrs Per Day: .25 hour per day Patient and/or Family Agrees t: Yes Time/GCodes Time In: 1051 Time Out: 1103 Total Billed Treatment Time: 12 [facility] Feb 24, 2020 11:40
[2020-02-24 12:32] VITALS: BP 166/84
--- NOTE | 2020-02-24 12:48 | NUR ---
1200 tylenol not administered. dose would exceed limit for 24 hours. patient denied pain when walking with physical therapy earlier today
--- NOTE | 2020-02-24 13:36 | NUR ---
"RD ASSESSMENT PMHx: dementia; CAD; HTN; chronic-UTI; hypothyroidism PT INTERACTION: Attempted to see pt. Note pt has dementia and is very hard of hearing. All dietary information received from RN. RN states pt is eating pretty poorly. Note avg PO intake 42% x2d, per chart review. RN states no recent issues with nausea, vomiting, constipation or diarrhea. Note last BM was 02/23, pt not currently on bowel regimen per chart review. Note no recent wt hx, per chart review. ABNORMAL NUTRITION-RELATED LAB VALUES LOW: K 3.2; Ca 8.0; Pro 5.9 HIGH: bili 1.4 Est. kcal needs: 3418-2048 kcal | 20-25 kcal/kg Est. Pro needs: 78-98 g Pro | 0.8-1.0 g Pro/kg PES STATEMENT: Inadequate oral intake (NI-2.1) related to loss of appetite | dementia as evidenced by avg PO intake 42% x2d | chart review INTERVENTION: Continue with current diet order of Regular diet. Add Ensure Enlive (vary) to meals TID, for increased kcal intake. Provides 350 kcal and 13 g Pro per serving. Will continue to follow and reassess as pt needs, intake, and status change. MONITOR/EVALUATE: PO Intake; Plan of Care; Hydration Status; Weight Status; Lab Values Tevin Rose, , RD, LD"
[2020-02-24] MEDS ORDERED: POTA10TA6 PO (13:56)
[2020-02-24] MEDS ORDERED: AMLO5TAB9 PO (13:56)
--- NOTE | 2020-02-24 13:58 | D/C HH Face to Face Order ---
D/C Face to Face Orders Reconcile Patient Problems Problems Reviewed?: Yes Instructions for Patient Home Health Patient Instructions/FollowUp: Dr Martinez in 1 week Physician to follow Patient: Self Discharge Diet for Home: No Restrictions Patient Problems: Back pain Dementia Goals for Patient: back pain resolution Patient Data-Allergies,Ht & Wt Patient Allergies: Uncoded Allergies: SULFA (Adverse Reaction, Unknown, 11/17/18) Height (Feet): 6 Height (Inches): 1.00 Weight (Pounds): 218 Home Health Need/Face to Face Date of Face to Face: Feb 24, 2020 Clinical Findings: Generalized weakness and fatigue, Instability, Muscle weakness, Pain with ambulation, Unsteady gait I have seen Pt josu-tw-rhhm: Yes Discharged To: Home Diagnosis/Conditions: Back pain Dementia Patient is Homebound due to: Juliocesar fall risk due to instabilty, Pain w /ambulation Homebound Status Due to the above stated illness, injury or surgical procedure (medical condition or diagnosis) and associated clinical findings, the patient is homebound because of his/her inability to leave home except with aid of a supportive device and/or person AND leaving the home requires a considerable and taxing effort or is medically contraindicated. Pt req the following assistanc: Walker Home Health Nursing Orders Home Health Services Order: Physical Therapy-Evaluate & Treat Home Health Infusion Therapy Line Start Date: February 22, 2020 Certify Stmt I certify that this patient is under my care and that I, a nurse practitioner or a physician; a medical technician assistant working with me, had a face to face encounter that - meets the physician face to face encounter requirements with this patient as dated. JEFF COLEMAN DO Feb 24, 2020 13:58
--- NOTE | 2020-02-24 13:59 | Discharge Summary ---
Discharge Summary Hospital Course Was the Problem List Reviewed?: Yes Problems/Dx: (1) Lumbar radiculopathy Status: Acute (2) Dementia (3) Psychosis (4) Hypothyroidism (5) Hypertension (6) Hypokalemia (7) Back pain Status: Acute Qualifiers: Hospital Course Date of Admission: February 22, 2020 at 15:16 Admission Diagnosis : Family Physician/Provider: Primo Martinez MD Date of Discharge: 02/24/20 Discharge Diagnosis: Lumbar radiculopathy with severe pain, dementia Hospital Course: Pt still very confused Baseline confusion noted by home medication of Aricept and antipsychotics PT and OT will be consulted Bowels moved today MRI will be done today due to abnormal CT scan consistent with herniated disc versus mass Unable to obtain any details whatsoever from the patient Had an uncomplicated course after admitted for back pain and unable to ambulate. Pain meds given and supportive care CT was abnl so MRI confirmed DJD without mass and patient was back to baseline dementia and PT OT worked with him and found him to be ready for DC. Labs and Pending Lab Test: Laboratory Tests 02/24/20 04:30: White Blood Count 8.5, Red Blood Count 4.22L, Hemoglobin 12.6L, Hematocrit 38L, Mean Corpuscular Volume 91, Mean Corpuscular Hemoglobin 30, Mean Corpuscular Hemoglobin Concent 33, Red Cell Distribution Width 15.2H, Platelet Count 152, Mean Platelet Volume 9.4, Neutrophils (%) (Auto) 73, Lymphocytes (%) (Auto) 19, Monocytes (%) (Auto) 7, Eosinophils (%) (Auto) 1, Basophils (%) (Auto) 0, Neutrophils # (Auto) 6.2, Lymphocytes # (Auto) 1.6, Monocytes # (Auto) 0.6, Eosinophils # (Auto) 0.1, Basophils # (Auto) 0.0, Sodium Level 142, Potassium Level 3.2L, Chloride Level 107, Carbon Dioxide Level 25, Anion Gap 10, Blood Urea Nitrogen 16, Creatinine 0.95, Estimat Glomerular Filtration Rate > 60, BUN/Creatinine Ratio 17, Glucose Level 93, Calcium Level 8.0L, Corrected Calcium 8.6, Total Bilirubin 1.4H, Aspartate Amino Transf (AST/SGOT) 18, Alanine Aminotransferase (ALT/SGPT) 10, Alkaline Phosphatase 59, Total Protein 5.9L, Albumin 3.3 Home Meds Active Klor-Con 10 (Potassium Chloride) 10 Meq Tablet.er 10 Meq PO BID WITH MEALS Amlodipine Besylate 5 Mg Tablet 5 Mg PO DAILY Reported Flomax (Tamsulosin HCl) 0.4 Mg Cap 0.4 Mg PO DAILY AFTER SUPPER Aspirin EC (Aspirin) 81 Mg Tablet.dr 81 Mg PO DAILY Atorvastatin Calcium 40 Mg Tablet 40 Mg PO HS Vitamin D3 (Cholecalciferol (Vitamin D3)) 125 Mcg Capsule 125 Mcg PO DAILY Fludrocortisone Acetate 0.1 Mg Tab 0.2 Mg PO DAILY TAKES 2 (0.1MG) TABS DAILY CHECK BP PRIOR TO ADMINISTRATION Omeprazole 40 Mg Capsule.dr 40 Mg PO DAILY Neurontin (Gabapentin) 300 Mg Capsule 300 Mg PO BID Cetirizine HCl 10 Mg Tablet 10 Mg PO DAILY PRN Meclizine HCl 25 Mg Tablet 25 Mg PO Q6H PRN Nitroglycerin 0.4 Mg Tab.subl 0.4 Mg SL UD PRN Tylenol Extra Strength (Acetaminophen) 500 Mg Tablet 1,000 Mg PO Q6H PRN Sertraline HCl 50 Mg Tablet 50 Mg PO DAILY Donepezil HCl 10 Mg Tablet 10 Mg PO HS Ropinirole HCl 1 Mg Tablet 1 Mg PO TID Quetiapine Fumarate 100 Mg Tablet 100 Mg PO HS Levothyroxine Sodium 25 Mcg Tablet 25 Mcg PO DAILY Assessment/Pt Instructions [facility] [address] Tam 2 weeks Discharge Planning: <30 minutes discharge planning Discharge Instructions Discharge Diet: No Restrictions Pneumonia Vaccine Order Indica: Yes Discharge Physical Examination Vital Signs Vital Signs Date Time Temp Pulse Resp B/P (MAP) Pulse Ox O2 Delivery O2 Flow Rate FiO2 02/24/20 12:32 37.0 74 18 166/84 (111) 97 Room Air General Appearance: No Apparent Distress, WD/WN Respiratory: Lungs Clear Cardiovascular: Regular Rate, Rhythm Neurologic/Psychiatric: Alert, Disoriented Allergies: Uncoded Allergies: SULFA (Adverse Reaction, Unknown, 11/17/18) Discharge Summary Date of Admission February 22, 2020 at 15:16 Date of Discharge Discharge Date: Feb 24, 2020 Admission Diagnosis Assessment: Severe and incapacitating back pain with herniated disc on CT needs MRI and supportive care since can't ambulate or keep self safe Dementia with behavior disturbances HTN Hypothyroidism UTI's Hypokalemia Plan: Pain meds Supportive care Lovenox MRI Dementia home meds Discharge Diagnosis (1) Lumbar radiculopathy Status: Acute (2) Dementia (3) Psychosis (4) Hypothyroidism (5) Hypertension (6) Hypokalemia (7) Back pain Status: Acute Qualifiers: Clinical Quality Measures DVT/VTE Risk/Contraindication: Risk Factor Score Per Nursin RFS Level Per Nursing on Admit: 4+=Very High JEFF COLEMAN DO Feb 24, 2020 13:59
--- NOTE | 2020-02-24 14:51 | NUR ---
CM/SS: Visit with pt as to plan for discharge Plan: Pt to return to [facility] Summary: Pt is pleasantly confused, and is ready to go home. Pt is from [facility]. A request for a walker is put in for pt. In contacting the Assisted Living, they report that pt has a walker already. He does not need one. Call to daughter - Dona - [phone] - let her know that pt is able to leave today. She will plan to machine pecan picker pt and return him to the [facility].
--- NOTE | 2020-02-24 15:30 | NUR ---
CALLED REPORT TO [facility] AT [facility] IN [place] MRI DEPARTMENT SENT MRI VIA CLOUD TO [facility] [address] --DR CASTELLANO.
[2020-02-24 16:30] VITALS: BP 166/84
== END 2020-02-24 16:30 | disposition home health service (06) | DRG 552 ==
LOC: EDUNIT# 09:32 → ER FS 09:34 → 4TH 15:16
PROVIDERS: ADMIT Internal Medicine; ATTEND Internal Medicine
DX: M51.16 Intervertebral disc disorders with radiculopathy, lumbar region (principal); F03.91 Unspecified dementia, unspecified severity, with behavioral disturbance; E03.9 Hypothyroidism, unspecified; I25.10 Atherosclerotic heart disease of native coronary artery without angina pectoris; I95.1 Orthostatic hypotension; F32.9 Major depressive disorder, single episode, unspecified; E87.6 Hypokalemia; H91.90 Unspecified hearing loss, unspecified ear; E66.9 Obesity, unspecified; Z87.891 Personal history of nicotine dependence; Z68.29 Body mass index [BMI] 29.0-29.9, adult; Z87.440 Personal history of urinary (tract) infections
CPT/HCPCS: 36415; 72131; 72148; 80053; 81000; 85007; 85025; 85027; 96374; 96375; 96376

== ENCOUNTER 2020-10-28 09:23 | Observation (INO) | payer MEDICARE ==
[~2020-10-28] VITALS: Ht 182.8 cm; Wt 98.6 kg
[~2020-10-28 09:23] MED LIST changes: +ACET-2267 PO; +AMLO-250 PO; +ASPI-1238 PO; +ATOR40TA70 PO; +CETI10TA17 PO; +CHOL500050 PO; +DONE10TA41 PO; +FLDR.1T PO; +GABA300C PO; +NITR0.4T39 SL; +OMEP40CA27 PO; +POTA10TA6 PO; +QUET100T33 PO; +ROPI1TAB PO; +SERT50TA9 PO; +TMSL.4C PO
[2020-10-28] MEDS ORDERED: methylPREDNISolone 125 MG (Solu-MEDROL) VIAL IVP ONE (09:30)
[2020-10-28] MEDS ORDERED: cefTRIAXone FOR IV USE 1,000 MG in WATER (STERILE) FOR INJECTION 10 ML IV ONE (09:30)
[2020-10-28] MEDS ORDERED: FUROSEMIDE 40 MG/4 ML INJ (LASIX) IVP ONE (09:30)
--- NOTE | 2020-10-28 09:49 | Diagnostic Imaging Report ---
PROCEDURE: CT head wo r/o stroke. TECHNIQUE: Multiple contiguous axial images were obtained through the brain without the use of intravenous contrast. Auto Exposure Controls were utilized during the CT exam to meet ALARA standards for radiation dose reduction. INDICATION: Left-sided facial droop. Correlation is made with prior CT head from 12/14/2018. Ventricles and sulci are prominent consistent with cerebral atrophy. There is periventricular hypodensity noted consistent with chronic microvascular ischemia. No sulcal effacement or midline shift is identified. No acute intra-axial or extra-axial hemorrhage is detected. Cisterns are patent. Visualized paranasal sinuses are clear. IMPRESSION: Chronic and senescent changes. No acute intracranial process is detected. Dictated by: Dictated on workstation # [id number]
--- NOTE | 2020-10-28 09:50 | Diagnostic Imaging Report ---
Indication: Left side facial droop. Time of exam: 9:40 AM Correlation is made with prior chest from 11/17/2018. The heart size is normal. The pulmonary vascularity is unremarkable. The lungs are clear. No infiltrate, effusion or pneumothorax is detected. Impression: No acute cardiopulmonary process is detected. Dictated by: Dictated on workstation # [id number]
[2020-10-28 10:16] LABS: HEMATOCRIT 37 % (40-54); HEMOGLOBIN 12.4 G/DL (13.3-17.7); LYMPHOCYTES % (AUTO) 37 % (12-44); MEAN CORPUSCULAR HEMOGLOBIN 30 PG (25-34); MEAN CORPUSCULAR HGB CONC 33 G/DL (32-36); MEAN CORPUSCULAR VOLUME 91 FL (80-99); MEAN PLATELET VOLUME 9.6 FL (7.4-10.4); NEUTROPHILS % (AUTO) 48 % (42-75); PLATELET COUNT 190 10^3/uL (130-400); WHITE BLOOD COUNT 5.5 10^3/uL (4.3-11.0)
[2020-10-28 10:17] LABS: BASOPHILS # (AUTO) 0.1 10^3/uL (0.0-0.1); BASOPHILS % (AUTO) 1 % (0-10); EOSINOPHILS # (AUTO) 0.1 10^3/uL (0.0-0.3); EOSINOPHILS % (AUTO) 3 % (0-10); LYMPHOCYTES # (AUTO) 2.1 X 10^3 (1.0-4.0); MONOCYTES # (AUTO) 0.6 X 10^3 (0.0-1.0); MONOCYTES % (AUTO) 10 % (0-12); NEUTROPHILS # (AUTO) 2.6 X 10^3 (1.8-7.8)
[2020-10-28 10:27] LABS: FIBRIN DEGRADATION PRODUCTS 1.13 UG/ML (0.00-0.49)
[2020-10-28 10:28] LABS: BILIRUBIN,TOTAL 0.4 MG/DL (0.1-1.0); BUN/CREATININE RATIO 9; CALCIUM 8.9 MG/DL (8.5-10.1); CARBON DIOXIDE 27 MMOL/L (21-32); CHLORIDE 106 MMOL/L (98-107); CREATININE SERUM 1.24 MG/DL (0.60-1.30); GFR ESTIMATED 56; GLUCOSE 97 MG/DL (70-105); POTASSIUM 3.6 MMOL/L (3.6-5.0); SODIUM 142 MMOL/L (135-145)
[2020-10-28 10:29] LABS: ALANINE AMINOTRANSFERASE 15 U/L (0-55); ALBUMIN 3.6 GM/DL (3.2-4.5); ALKALINE PHOSPHATASE 58 U/L (40-136); TOTAL PROTEIN 6.5 GM/DL (6.4-8.2)
--- NOTE | 2020-10-28 10:49 | ED General ---
General Chief Complaint: Neuro-Stroke Like Symptoms Stated Complaint: AMS; CHEST PAIN Source of Information: Patient, EMS Exam Limitations: Other (Cognitive impairment) History of Present Illness Date Seen by Provider: Oct 28, 2020 Time Seen by Provider: 10:00 Initial Comments Patient is an 80-year-old male assisted-living patient with history of dementia who presents with witnessed syncopal episode, generalized weakness and left facial droop. Symptom onset was just 30 minutes prior to ED arrival. Patient was seen clutching his chest prior to his brief syncopal episode. Patient has r eturned to his baseline mental status he has dysarthria with subtle left facial droop. He is alert and oriented x1 which is baseline. He is able to follow commands but has impaired cognitive abilities. NIH stroke score of 2. He is now normal sinus rhythm on monitor. Stroke alert activated. Timing/Duration: 1/2 Hour Severity: Moderate Modifying Factors: improves with Other Associated Systoms: Other Allergies and Home Medications Allergies Uncoded Allergies: SULFA (Adverse Reaction, Unknown, 11/17/18) Home Medications Acetaminophen 500 Mg Tablet, 1,000 MG PO Q6H PRN for PAIN-MILD (1-4), (Reported) Amlodipine Besylate 5 Mg Tablet, 5 MG PO DAILY Prescribed by: JEFF COLEMAN on 02/24/20 1356 Aspirin 81 Mg Tablet.dr, 81 MG PO DAILY, (Reported) Atorvastatin Calcium 40 Mg Tablet, 40 MG PO HS, (Reported) Cetirizine HCl 10 Mg Tablet, 10 MG PO DAILY PRN for ALLERGIES, (Reported) Cholecalciferol (Vitamin D3) 125 Mcg Capsule, 125 MCG PO DAILY, (Reported) Donepezil HCl 10 Mg Tablet, 10 MG PO HS, (Reported) Fludrocortisone Acetate 0.1 Mg Tab, 0.2 MG PO DAILY, (Reported) TAKES 2 (0.1MG) TABS DAILY CHECK BP PRIOR TO ADMINISTRATION Gabapentin 300 Mg Capsule, 300 MG PO BID, (Reported) Levothyroxine Sodium 25 Mcg Tablet, 25 MCG PO DAILY, (Reported) Meclizine HCl 25 Mg Tablet, 25 MG PO Q6H PRN for DIZZINESS, (Reported) Nitroglycerin 0.4 Mg Tab.subl, 0.4 MG SL UD PRN for CHEST PAIN, (Reported) Omeprazole 40 Mg Capsule.dr, 40 MG PO DAILY, (Reported) Potassium Chloride 10 Meq Tablet.er, 10 MEQ PO BID WITH MEALS Prescribed by: JEFF COLEMAN on 02/24/20 1356 Quetiapine Fumarate 100 Mg Tablet, 100 MG PO HS, (Reported) Ropinirole HCl 1 Mg Tablet, 1 MG PO TID, (Reported) Sertraline HCl 50 Mg Tablet, 50 MG PO DAILY, (Reported) Tamsulosin HCl 0.4 Mg Cap, 0.4 MG PO DAILY AFTER SUPPER, (Reported) Patient Home Medication List Home Medication List Reviewed: Yes Review of Systems Review of Systems Constitutional: see HPI EENTM: see HPI Respiratory: see HPI Cardiovascular: see HPI Gastrointestinal: see HPI Musculoskeletal: see HPI Psychiatric/Neurological: See HPI Hematologic/Lymphatic: See HPI Immunological/Allergic: see HPI All Other Systems Reviewed Negative Unless Noted: Yes Past Abqfsmh-Wmxxke-Vymsro Hx Past Med/Social Hx: Reviewed Nursing Past Med/Soc Hx Patient Social History Alcohol Use: Denies Use Smoking Status: Former Smoker Type Used: Cigarettes, Smokeless Tobacco Former Smoker, Quit: Sep 25, 1968 2nd Hand Smoke Exposure: No Recent Hopitalizations: No Seasonal Allergies Seasonal Allergies: No Past Medical History Cardiac: Yes (per Assisted Living records CAD and orthostatic hypotension) Coronary Artery Disease, Hypotension Neurological: Yes (memory loss per Assisted Living records, Memory Loss) Dementia Genitourinary: Yes (hx urine retention) UTI-Chronic Gastrointestinal: Yes (poor historian) Gastroesophageal Reflux Chronic Back Pain Hypothyroidsim Psychosocial: Yes (poor historian, Depression per Assisted living records) Depression Blood Disorders: No Family Medical History Patient reports no known family medical history. Physical Exam Vital Signs Vital Signs - First Documented 10/28/20 10:10 Temp 37.0 Pulse 57 Resp 15 B/P (MAP) 178/83 (114) Pulse Ox 96 O2 Delivery Room Air Capillary Refill : Height, Weight, BMI Height: 6'1.00" Weight: 218lbs. oz. 98.016647jj; 29.32 BMI Method:Stated General Appearance: No Apparent Distress Eyes: Bilateral Eye EOMI HEENT: PERRL/EOMI, Pharynx Normal Neck: Non Tender, Supple Respiratory: Chest Non Tender, Lungs Clear Cardiovascular: Regular Rate, Rhythm, Normal Peripheral Pulses Gastrointestinal: Non Tender, Soft Back: Normal Inspection Neurologic/Psychiatric: Other (Left facial droop, dysarthria. Disoriented to place, events and time.) Skin: Normal Color Lymphatic: No Adenopathy Focused Exam Sepsis Stage: Ruled Out Progress/Results/Core Measures Suspected Sepsis SIRS Temperature: Pulse: Respiratory Rate: Laboratory Tests 10/28/20 10:10: White Blood Count 5.5 Blood Pressure / Mean: Laboratory Tests 10/28/20 09:50: Creatinine 1.24, INR Comment 1.0, Total Bilirubin 0.4 10/28/20 10:10: Platelet Count 190 Results/Orders Lab Results Laboratory Tests Test 10/28/20 09:50 10/28/20 10:10 10/28/20 10:45 Range/Units Prothrombin Time 13.0 12.2-14.7 SEC INR Comment 1.0 0.8-1.4 Activated Partial Thromboplast Time 24 24-35 SEC D-Dimer 1.13 H 0.00-0.49 UG/ML Sodium Level 142 135-145 MMOL/L Potassium Level 3.6 3.6-5.0 MMOL/L Chloride Level 106 98-107 MMOL/L Carbon Dioxide Level 27 21-32 MMOL/L Anion Gap 9 5-14 MMOL/L Blood Urea Nitrogen 11 7-18 MG/DL Creatinine 1.24 0.60-1.30 MG/DL Estimat Glomerular Filtration Rate 56 BUN/Creatinine Ratio 9 Glucose Level 97 70-105 MG/DL Calcium Level 8.9 8.5-10.1 MG/DL Corrected Calcium 9.2 8.5-10.1 MG/DL Total Bilirubin 0.4 0.1-1.0 MG/DL Aspartate Amino Transf (AST/SGOT) 18 5-34 U/L Alanine Aminotransferase (ALT/SGPT) 15 0-55 U/L Alkaline Phosphatase 58 40-136 U/L Troponin I < 0.30 <0.30 NG/ML Total Protein 6.5 6.4-8.2 GM/DL Albumin 3.6 3.2-4.5 GM/DL White Blood Count 5.5 4.3-11.0 10^3/uL Red Blood Count 4.11 L 4.35-5.85 10^6/uL Hemoglobin 12.4 L 13.3-17.7 G/DL Hematocrit 37 L 40-54 % Mean Corpuscular Volume 91 80-99 FL Mean Corpuscular Hemoglobin 30 25-34 PG Mean Corpuscular Hemoglobin Concent 33 32-36 G/DL Red Cell Distribution Width 14.6 H 10.0-14.5 % Platelet Count 190 130-400 10^3/uL Mean Platelet Volume 9.6 7.4-10.4 FL Immature Granulocyte % (Auto) 1 % Neutrophils (%) (Auto) 48 42-75 % Lymphocytes (%) (Auto) 37 12-44 % Monocytes (%) (Auto) 10 0-12 % Eosinophils (%) (Auto) 3 0-10 % Basophils (%) (Auto) 1 0-10 % Neutrophils # (Auto) 2.6 1.8-7.8 X 10^3 Lymphocytes # (Auto) 2.1 1.0-4.0 X 10^3 Monocytes # (Auto) 0.6 0.0-1.0 X 10^3 Eosinophils # (Auto) 0.1 0.0-0.3 10^3/uL Basophils # (Auto) 0.1 0.0-0.1 10^3/uL Immature Granulocyte # (Auto) 0.1 0.0-0.1 10^3/uL My Orders Orders - FIORELLA TORRES DO Cbc With Automated Diff (10/28/20:) Protime With Inr (10/28/20:) Partial Thromboplastin Time (10/28/20:) Comprehensive Metabolic Panel (10/28/20:) Fibrin Degradation Products (10/28/20:) Troponin I Fs (10/28/20:) Ua Culture If Indicated (10/28/20:) Chest 1 View Ap/Pa Only (10/28/20) Ekg Tracing (10/28/20:) Nothing By Mouth (10/28/20 Lunch) Accucheck Stat ONCE (10/28/20:) Ed Iv/Invasive Line Start (10/28/20:) Ed Iv/Invasive Line Start (10/28/20:) Vital Signs Stroke Patient Q15M (10/28/20:) Ct Head Wo-R/O Stroke (10/28/20:) O2 (10/28/20:) Intake & Output 06,14,22 (10/28/20:) Monitor-Rhythm Ecg Trace Only (10/28/20 09:26) Dysphagia Screening Tool (10/28/20 09:26) Post Thrombolytic Adminstratio (10/28/20 09:26) Lipid Panel (10/29/20 06:00) Vital Signs/I&O 10/28/20 10:10 Temp 37.0 Pulse 57 Resp 15 B/P (MAP) 178/83 (114) Pulse Ox 96 O2 Delivery Room Air Capillary Refill : Departure Communication (Admissions) CT head: Reviewed EKG: No arrhythmias or acute ST elevation. Chest x-ray: No acute cardiopulmonary disease. Patient NIH stroke score of 2 with one-point attributed to dementia related cognitive impairment. Dr. Jacob on-call for [facility] is to admit patient. Impression Primary Impression: Acute ischemic stroke Additional Impressions: Facial droop Syncope and collapse Chest pain Disposition: ADMITTED INPATIENT Condition: Stable Admissions Decision to Admit Reason: Admit from ER (General) Decision to Admit/Date: Oct 28, 2020 Time/Decision to Admit Time: 11:20 Departure-Patient Inst. Decision time for Depature: 11:03 Referrals: MELISSA VARGAS MD (PCP/Family) Primary Care Physician FIORELLA TORRES DO Oct 28, 2020 10:49
--- NOTE | 2020-10-28 11:20 | NUR ---
Update with [facility] nurse, April. April calls for update... Patient report asked from April. April states, "He is still acting abnormal with lethargy and being weaker like Monday on the other ER visit." "Pt walking in hallway when he held hand to chest and said he was going to ." "Patient briefly stopped talking and I spoke up louder and and then he answered." "We just changed him from Cipro to Ceftin on Monday night as these lethargy weakness symptoms started then with his UTI." "Mr Hardy has a left eye droop but more pronounced today." Explained to April (the nurse), the patient did not come to [place] [facility] Monday and we did not prescribe for this recent UTI and his baseline functioning of dementia with behavioral issues are for hard to score patient on an NIH stroke scale. The patient moves all extremities and displays strengths with equal automated manufacturing instructor. Short term memory noted from initiation of exam as patient does not answer current hx questions. Does not know age, month, states correct year, disoriented to surroundings, place of living, reports he lives at home in [place] not at [facility] [place] [place] [facility] are not aware that patient sought medical tx at [facility] Monday evening for similar sx. April states the ER thought he had reaction to Cipro and placed him on Ceftin.
[2020-10-28 11:24] LABS: COLOR,URINE YELLOW
[2020-10-28 11:25] LABS: BACTERIA,URINE TRACE /HPF; BILIRUBIN,URINE NEGATIVE (NEGATIVE); CLARITY,URINE SLIGHTLY CLOUDY; GLUCOSE, URINE (UA) NEGATIVE (NEGATIVE); KETONES,URINE NEGATIVE (NEGATIVE); LEUKOCYTE ESTERASE ,URINE 1+ (NEGATIVE); NITRITE,URINE NEGATIVE (NEGATIVE); PH,URINE 6.5 (5-9); PROTEIN,URINE NEGATIVE (NEGATIVE); SQUAMOUS EPITHELIAL CELL,UR 0-2 /HPF; WBC,URINE 25-50 /HPF
--- NOTE | 2020-10-28 11:27 | NUR ---
Attempt report to Dona Webster on pt's file as dgt and did not reach her so left voicemail message to call back.
--- NOTE | 2020-10-28 11:33 | NUR ---
Call rec'd from Tsering RN at [facility] to get report on patient.
--- NOTE | 2020-10-28 11:39 | NUR ---
REPORT FROM BRAULIO GERARD IN [facility] AT THIS TIME.
--- NOTE | 2020-10-28 11:45 | NUR ---
Patient is calling out and confused and trying to get up. Staff to room to try to assist and re-orient. Pt is very agitated.
--- NOTE | 2020-10-28 12:00 | NUR ---
Pt yelling and threatening he is getting up to leave. Pt is very confused.
--- NOTE | 2020-10-28 12:30 | NUR ---
clinical research manager's in room, patient has been offered sandwich and drink. Pt refusing. Found patient has his jeans off the right leg and kicked off R shoe. Pt is moving all extremities. Pt very strong and pulling off monitors and throwing blankets on floor. No longer showing L sided eye droop.
[2020-10-28 13:30] VITALS: BP 179/84
--- NOTE | 2020-10-28 13:50 | NUR ---
patient to floor at this via [facility].
--- NOTE | 2020-10-28 14:43 | NUR ---
made call to his assisted living facility for report and found that patient had pneumo vaccine on 02/17/2004, flu vaccine was also given 07/07/2020, and they also report he has a BM 10/25/2020.
--- NOTE | 2020-10-28 14:48 | History & Physical ---
MITCH ANDUJAR MED STUDENT 10/28/20 1447: History of Present Illness History of Present Illness Reason for visit/HPI Toni is a 80 yo male that presented to the ER from an assisted living facility with the chief complaint of syncope and chest pain. He has a history of dementia and the staff have witness syncopal episodes. About 30 minutes before coming to the ER the staff described seeing left facial droop and generalized weakness in Toni. According to the ER note, the staff also described seeing him clench at his chest. On questioning pt was alert and oriented only to himself. He was unable to answer most questions but did state that he was not uin any pain or experiencing chest pain. On physical exam a facial droop or weakness was not evident. Date of Admission Oct 28, 2020 at 13:45 Date Seen by a Provider: Oct 28, 2020 Time Seen by a Provider: 02:30 I consulted on this patient on 10/28/20 14:41 Attending Physician Arabella Jacob MD Admitting Physician Primo Martinez MD Consult Allergies and Home Medications Allergies Uncoded Allergies: SULFA (Adverse Reaction, Unknown, 11/17/18) Home Medications Acetaminophen 500 Mg Tablet, 1,000 MG PO Q6H PRN for PAIN-MILD (1-4), (Reported) Aspirin 81 Mg Tablet.dr, 81 MG PO DAILY, (Reported) Cefuroxime Axetil 250 Mg Tablet, 250 MG PO BID, (Reported) STARTED TAKING 10/23/2020 FOR A 10 DAY SUPPLY Cetirizine HCl 10 Mg Tablet, 10 MG PO DAILY PRN for ALLERGIES, (Reported) Cimetidine 300 Mg Tablet, 300 MG PO BID, (Reported) Citalopram Hydrobromide 20 Mg Tablet, 20 MG PO HS, (Reported) Clonazepam 0.5 Mg Tablet, 0.5 MG PO 1400, (Reported) Diclofenac Sodium 100 Gm Gel..gram., 1 APPLIC TP BID, (Reported) APPLY TO LOWER BACK Fludrocortisone Acetate 0.1 Mg Tab, 0.2 MG PO DAILY, (Reported) TAKES 2 (0.1MG) TABS DAILY CHECK BP PRIOR TO ADMINISTRATION Gabapentin 300 Mg Capsule, 300 MG PO TID, (Reported) Levothyroxine Sodium 25 Mcg Tablet, 25 MCG PO DAILY, (Reported) Meclizine HCl 25 Mg Tablet, 25 MG PO Q6H PRN for DIZZINESS, (Reported) Methyl Salicylate/Menthol 113 Gm Cream..g., 1 APPLIC TP PRN PRN for BACK PAIN, (Reported) Nitroglycerin 0.4 Mg Tab.subl, 0.4 MG SL UD PRN for CHEST PAIN, (Reported) Omeprazole 40 Mg Capsule.dr, 40 MG PO DAILY, (Reported) Paroxetine HCl 20 Mg Tablet, 20 MG PO DAILY, (Reported) Polyethylene Glycol 3350 17 Gm Powd.pack, 17 GM PO DAILY, (Reported) MIX WITH 8 OUNCES OF WATER OR JUICE Potassium Chloride 10 Meq Tab.er.prt, 10 MEQ PO DAILY, (Reported) Tamsulosin HCl 0.4 Mg Cap, 0.4 MG PO DAILY AFTER SUPPER, (Reported) Trazodone HCl 150 Mg Tablet, 75 MG PO HS, (Reported) TAKES 1/2 (150MG) TABLET Past Voxfeql-Fetjzs-Eojuqh Hx Patient Social History Smoking Status: Former Smoker Former Smoker, Quit: Sep 25, 1968 2nd Hand Smoke Exposure: No Recent Hopitalizations: No Seasonal Allergies Seasonal Allergies: No Cardiovascular Yes (per Assisted Living records CAD and orthostatic hypotension) Coronary Artery Disease, Hypotension Neurological Yes (memory loss per Assisted Living records, Memory Loss) Dementia Genitourinary Yes (hx urine retention) UTI-Chronic Gastrointestinal Yes (poor historian) Gastroesophageal Reflux Musculoskeletal Chronic Back Pain Endocrine Endocrine Disorders: Hypothyroidsim Psychosocial History of Psychiatric Problem: Yes (poor historian, Depression per Assisted living records) Behavioral Health Disorders: Depression Blood Transfusions History of Blood Disorders: No Family Medical History Family Hx: Patient reports no known family medical history. Physical Exam Vital Signs Vital Signs - First Documented 10/28/20 10:10 Temp 37.0 Pulse 57 Resp 15 B/P (MAP) 178/83 (114) Pulse Ox 96 O2 Delivery Room Air Capillary Refill : Less Than 3 Seconds Height, Weight, BMI Height: 6'1.00" Weight: 218lbs. oz. 98.931391ny; 28.00 BMI Method:Stated General Appearance: No Apparent Distress HEENT: PERRL/EOMI Neck: Normal Inspection, Non Tender, Supple Respiratory: Chest Non Tender, Lungs Clear, Normal Breath Sounds, No Accessory Muscle Use, No Respiratory Distress Cardiovascular: Regular Rate, Rhythm, No Edema, No Gallop, No Murmur, Normal Peripheral Pulses Gastrointestinal: No Organomegaly, No Pulsatile Mass, Non Tender, Soft Extremity: Normal Inspection, Non Tender, No Calf Tenderness, No Pedal Edema Neurologic/Psychiatric: Alert, Disoriented Skin: Normal Color, Warm/Dry Lymphatic: No Adenopathy Assessment/Plan Assessment and Plan Assessment: dementia syncope possible transient ischemic attack Plan: CT angiography of the brain carotid dopplers caridiac monitoring anticoagulant and statin therapy Clinical Quality Measures Stroke: Date of last known well: Oct 28, 2020 ARABELLA JACOB MD 10/28/202044: History of Present Illness History of Present Illness Date Seen by a Provider: Oct 28, 2020 Time Seen by a Provider: 16:00 Allergies and Home Medications Allergies Uncoded Allergies: SULFA (Adverse Reaction, Unknown, 11/17/18) Home Medications Acetaminophen 500 Mg Tablet, 1,000 MG PO Q6H PRN for PAIN-MILD (1-4), (Reported) Aspirin 81 Mg Tablet.dr, 81 MG PO DAILY, (Reported) Cefuroxime Axetil 250 Mg Tablet, 250 MG PO BID, (Reported) STARTED TAKING 10/23/2020 FOR A 10 DAY SUPPLY Cetirizine HCl 10 Mg Tablet, 10 MG PO DAILY PRN for ALLERGIES, (Reported) Cimetidine 300 Mg Tablet, 300 MG PO BID, (Reported) Citalopram Hydrobromide 20 Mg Tablet, 20 MG PO HS, (Reported) Clonazepam 0.5 Mg Tablet, 0.5 MG PO 1400, (Reported) Diclofenac Sodium 100 Gm Gel..gram., 1 APPLIC TP BID, (Reported) APPLY TO LOWER BACK Fludrocortisone Acetate 0.1 Mg Tab, 0.2 MG PO DAILY, (Reported) TAKES 2 (0.1MG) TABS DAILY CHECK BP PRIOR TO ADMINISTRATION Gabapentin 300 Mg Capsule, 300 MG PO TID, (Reported) Levothyroxine Sodium 25 Mcg Tablet, 25 MCG PO DAILY, (Reported) Meclizine HCl 25 Mg Tablet, 25 MG PO Q6H PRN for DIZZINESS, (Reported) Methyl Salicylate/Menthol 113 Gm Cream..g., 1 APPLIC TP PRN PRN for BACK PAIN, (Reported) Nitroglycerin 0.4 Mg Tab.subl, 0.4 MG SL UD PRN for CHEST PAIN, (Reported) Omeprazole 40 Mg Capsule.dr, 40 MG PO DAILY, (Reported) Paroxetine HCl 20 Mg Tablet, 20 MG PO DAILY, (Reported) Polyethylene Glycol 3350 17 Gm Powd.pack, 17 GM PO DAILY, (Reported) MIX WITH 8 OUNCES OF WATER OR JUICE Potassium Chloride 10 Meq Tab.er.prt, 10 MEQ PO DAILY, (Reported) Tamsulosin HCl 0.4 Mg Cap, 0.4 MG PO DAILY AFTER SUPPER, (Reported) Trazodone HCl 150 Mg Tablet, 75 MG PO HS, (Reported) TAKES 1/2 (150MG) TABLET Patient Home Medication List Home Medication List Reviewed: Yes Past Nanztpg-Utlfft-Mdexon Hx Family Medical History Family Hx: Patient reports no known family medical history. Review of Systems Constitutional: other (unable to obtain reliable answers, denies any concerns) Physical Exam General Appearance: No Apparent Distress HEENT: PERRL/EOMI Respiratory: Lungs Clear, Normal Breath Sounds Cardiovascular: Regular Rate, Rhythm, No Murmur Gastrointestinal: Normal Bowel Sounds, Non Tender, Soft Extremity: Non Tender Neurologic/Psychiatric: Alert, painter helper II-XII Norm as Tested; No Abnormal Cerebellar Tests, No Facial Droop, No Motor Weakness; Other (oriented to self only) Skin: Normal Color, Warm/Dry Assessment/Plan Assessment and Plan Problems: (1) Transient alteration of awareness Status: Acute Assessment & Plan: Rapidly improved, possible TIA vs cardiac arrhythmia. No evidence of infection, UA and CXR and labs unremarkable. CT head with no acute changes. Monitor on telemetry. Already on antiplatelet and statin at baseline. (2) Dementia Status: Chronic Assessment & Plan: At baseline per assisted living, they do report he has significant problems with confusion/delirium when away from his normal setting. Redirect, sitter, avoid any extra lines or medications. (3) Hypothyroidism (4) Hypertension Admission Diagnosis Admission Status: Observation Supervisory-Addendum Brief Verification & Attestation Participated in pt care: history, MDM, physical Personally performed: exam, history, MDM Care discussed with: Medical Student Procedures: n/a I personally saw and examined this patient and obtained my own history and exam, see my exam and problem list for my documentation. Agree with student documentation of history. MITCH ANDUJAR STUDENT Oct 28, 2020 14:47 ARABELLA JACOB MD Oct 28, 2020 20:45
[2020-10-28 16:00] VITALS: BP 158/82
[2020-10-28] MEDS ORDERED: TRAZ150T72 PO (16:34)
[2020-10-28] MEDS ORDERED: POTA10TA36 PO (16:34)
[2020-10-28] MEDS ORDERED: CLON0.5T4 PO (16:34)
[2020-10-28] MEDS ORDERED: DICL100G18 TP (16:34)
[2020-10-28] MEDS ORDERED: PARO20TA5 PO (16:34)
[2020-10-28] MEDS ORDERED: CEFU250T80 PO (16:34)
[2020-10-28] MEDS ORDERED: POLY17PO6 PO (16:34)
[2020-10-28] MEDS ORDERED: METH113C21 TP (16:34)
[2020-10-28] MEDS ORDERED: [UNRECOGNIZED DRUG - CODE] PO (16:34)
[2020-10-28] MEDS ORDERED: CITA20TA9 PO (16:34)
--- NOTE | 2020-10-28 16:38 | NUR ---
I WENT THROUGH THE MED LIST FROM PATIENT'S [facility] AND WENT THROUGH THE EXTERNAL MED HISTORY TO COMPLETE THIS MED REC. OTC: ASPIRIN ZYRTEC MUSCLE CREAM MIRALAX TYLENOL
[2020-10-28 19:51] VITALS: BP 167/91
[2020-10-28] MEDS: GABAPENTIN 300 MG (NEURONTIN) CAP PO SCH (19:59)
[2020-10-28] MEDS ORDERED: polyethylene glycoL POWDER 17 GM (MIRALAX) PACK PO PRN (20:45)
[2020-10-28] MEDS ORDERED: traZODone 150 MG (DESYREL) TABLET PO SCH (21:00)
[2020-10-28 23:50] VITALS: BP 146/80
[2020-10-29 03:55] VITALS: BP 162/81
[2020-10-29 05:27] LABS: BASOPHILS # (AUTO) 0.1 10^3/uL (0.0-0.1); BASOPHILS % (AUTO) 1 % (0-10); EOSINOPHILS # (AUTO) 0.1 10^3/uL (0.0-0.3); EOSINOPHILS % (AUTO) 2 % (0-10); HEMATOCRIT 39 % (40-54); HEMOGLOBIN 12.9 g/dL (13.3-17.7); LYMPHOCYTES # (AUTO) 2.3 10^3/uL (1.0-4.0); LYMPHOCYTES % (AUTO) 42 % (12-44); MEAN CORPUSCULAR HEMOGLOBIN 30 pg (25-34); MEAN CORPUSCULAR HGB CONC 33 g/dL (32-36); MEAN CORPUSCULAR VOLUME 90 fL (80-99); MEAN PLATELET VOLUME 9.6 fL (9.0-12.2); MONOCYTES # (AUTO) 0.5 10^3/uL (0.0-1.0); MONOCYTES % (AUTO) 9 % (0-12); NEUTROPHILS # (AUTO) 2.4 10^3/uL (1.8-7.8); NEUTROPHILS % (AUTO) 44 % (42-75); PLATELET COUNT 178 10^3/uL (130-400); WHITE BLOOD COUNT 5.4 10^3/uL (4.3-11.0)
[2020-10-29 05:45] LABS: ALBUMIN 3.3 GM/DL (3.2-4.5); BILIRUBIN,TOTAL 0.7 MG/DL (0.1-1.0); CALCIUM 8.3 MG/DL (8.5-10.1); CREATININE SERUM 1.22 MG/DL (0.60-1.30); POTASSIUM 3.6 MMOL/L (3.6-5.0); TOTAL PROTEIN 6.2 GM/DL (6.4-8.2)
[2020-10-29 08:00] VITALS: BP 151/80
[2020-10-29] MEDS: GABAPENTIN 300 MG (NEURONTIN) CAP PO SCH ×2 (08:58→11:43)
--- NOTE | 2020-10-29 08:59 | NUR ---
SHELLY ARAUJO REPORTS THAT THIS PATIENT HAS HAD A VERY LARGE BM THIS A.M.. THIS RN WILL HOLD THE MIRALAX.
[2020-10-29] MEDS ORDERED: LEVOTHYROXINE 25 MCG (LEVOTHROID) TAB PO SCH (09:00)
[2020-10-29] MEDS ORDERED: ASPIRIN E.C. 81 MG (ECOTRIN) TAB PO SCH (09:00)
[2020-10-29] MEDS ORDERED: PANTOPRAZOLE 40 MG (PROTONIX) TAB PO SCH (09:00)
[2020-10-29] MEDS ORDERED: FLUDROCORTISONE 0.1 MG (FLORINEF) TAB PO SCH (09:00)
[2020-10-29] MEDS ORDERED: TAMSULOSIN 0.4 MG (FLOMAX) CAP PO SCH (09:00)
[2020-10-29] MEDS ORDERED: polyethylene glycoL POWDER 17 GM (MIRALAX) PACK PO SCH (09:00)
[2020-10-29] MEDS ORDERED: inSUlin ASPART (NovoLOG) 1 UNIT/0.01 ML (CHARGE PER UNIT) SC SCH (11:00)
--- NOTE | 2020-10-29 11:50 | NUR ---
CM/SS: Telephone call to [facility] - to coordinate pt being returned to the facility. Talked with Jory, Compliance Monitor. She will scrap picker pt after lunch around 1pm. Information is faxed [phone] - to the Assisted living along with the discharge orders.
--- NOTE | 2020-10-29 11:55 | NUR ---
TRIED TO CALL REPORT AT THIS TIME. SPOKE WITH SAMIR AT [facility] WHO WILL HAVE THE NURSE CALL THIS RN BACK FOR REPORT OF THIS PATIENT'S DISCHARGE.
[2020-10-29 12:00] VITALS: BP 135/83
--- NOTE | 2020-10-29 12:46 | Discharge Summary ---
MITCH ANDUJAR MED STUDENT 10/29/20 1246: Diagnosis/Chief Complaint Date of Admission Oct 28, 2020 at 13:45 Date of Discharge Oct 29, 2020 Discharge Date: Oct 29, 2020 Admission Diagnosis Admission Diagnosis syncope and chest pain Discharge Diagnosis dementia Reason Hospital Visit Toni is a 80 yo male that presented to the ER from an assisted living facility with the chief complaint of syncope and chest pain. He has a history of dementia and the staff martinez dwitness syncopal episodes. Pt was evalutated for possible heart attack, TIA, and stroke. Vitals, telemetry, and labs were reviewed and showed no clear answer as to why he had these symptoms. Pt will be discharged back to the assisted living today. Discharge Summary Hospital Course Labs Laboratory Tests 10/28/20 09:50: D-Dimer 1.13H 10/28/20 10:10: Red Blood Count 4.11L, Hemoglobin 12.4L, Hematocrit 37L, Red Cell Distribution Width 14.6H 10/28/20 10:45: Urine Specific [place] 1.025H, Urine Leukocyte Esterase 1+H, Urine WBC 25-50H, Urine Mucus LARGEH 10/29/20 05:14: Red Blood Count 4.29L, Hemoglobin 12.9L, Hematocrit 39L, Calcium Level 8.3L, Total Protein 6.2L 10/29/20 05:31: 10/29/20 10:45: Procedures None. Discharge Physical Examination Allergies: Uncoded Allergies: SULFA (Adverse Reaction, Unknown, 11/17/18) Vitals & I&Os Vital Signs Date Time Temp Pulse Resp B/P (MAP) Pulse Ox O2 Delivery O2 Flow Rate FiO2 10/29/20 12:00 36.5 60 18 135/83 (100) 97 Room Air General Appearance: Alert, Other (oriented to person only) HEENT: PERRLA Respiratory: Clear to Auscultation Cardiovascular: Regular Rate, Normal S1, Normal S2, No Murmurs Abdominal: Normal Bowel Sounds, Soft, No Tenderness, No Hepatosplenomegaly, No Masses Extremities: No Clubbing, No Cyanosis, No Edema, Normal Pulses, No Tenderness/Swelling Skin: No Rashes, No Breakdown, No Significant Lesion Neuro: Strength at 5/5 X4 Ext Psych/Mental Status: Other (dementia) Discharge Home Medications Reviewed and agree with Discharge Medication list on patient's Discharge Instruction sheet Instructions to Patient/Family Please see electronic discharge instructions given to patient. Clinical Quality Measures Stroke: Date of last known well: Oct 28, 2020 ARABELLA DE LA ROSA MD 10/29/202117: Discharge Summary Hospital Course Hospital Course Pt admitted after episode of altered responsiveness, not clearly syncopal. Telemetry okay overnight, no episodes and labs unremarkable. Discharge Physical Examination Allergies: Uncoded Allergies: SULFA (Adverse Reaction, Unknown, 11/17/18) Supervisory-Addendum Brief Verification & Attestation Participated in pt care: history, MDM, physical Personally performed: exam, history Care discussed with: Medical Student Procedures: n/a I saw and examined patient today and agree with student documentation. MITCH ANDUJAR MED STUDENT Oct 29, 2020 12:46 ARABELLA DE LA ROSA MD Oct 29, 2020 21:18
[2020-10-29 13:20] VITALS: BP 135/83
[2020-10-29] MEDS ORDERED: clonazePAM 0.5 MG (KlonoPIN) TAB PO SCH (14:00)
== END 2020-10-29 13:35 ==
LOC: EDUNIT# 09:23 → ER FS 09:24 → 4TH 13:45 → INTOOBSV 13:45
PROVIDERS: ADMIT Family Medicine; ATTEND Family Medicine
DX: F03.90 Unspecified dementia, unspecified severity, without behavioral disturbance, psychotic disturbance, mood disturbance, and anxiety (principal); I25.10 Atherosclerotic heart disease of native coronary artery without angina pectoris; N39.0 Urinary tract infection, site not specified; K21.9 Gastro-esophageal reflux disease without esophagitis; G89.29 Other chronic pain; M54.5 Low back pain; E03.9 Hypothyroidism, unspecified; F32.9 Major depressive disorder, single episode, unspecified; R40.4 Transient alteration of awareness; Z79.82 Long term (current) use of aspirin; Z79.899 Other long term (current) drug therapy; Z88.2 Allergy status to sulfonamides; Z87.891 Personal history of nicotine dependence; Z86.73 Personal history of transient ischemic attack (TIA), and cerebral infarction without residual deficits
CPT/HCPCS: 36415; 70450; 71045; 80053; 81000; 82962; 84484; 85025; 85379; 85610; 85730; 93005; 93041

== ENCOUNTER 2021-04-10 10:06 | Emergency (ER) | payer MEDICARE ==
[~2021-04-10 10:06] MED LIST changes: +CEFU250T80 PO; +CITA20TA9 PO; +CLON0.5T4 PO; +DICL100G18 TP; +METH113C21 TP; -OMEP40CA27 PO; +OMEP40CA6 PO; +PARO20TA5 PO; +POLY17PO6 PO; +POTA10TA36 PO; +SERT-413 PO; -SERT50TA9 PO; +TRAZ150T72 PO; +[UNRECOGNIZED DRUG - CODE] PO
--- NOTE | 2021-04-10 10:27 | ED Chest Pain ---
General Stated Complaint: CHEST PAIN Source: patient, EMS Exam Limitations: no limitations History of Present Illness Date Seen by Provider: Apr 10, 2021 Time Seen by Provider: 10:22 Initial Comments 81-year-old male presents from assisted living where he was passed out on the floor. He stated he had some chest pain and left arm pain prior to passing out. On arrival he is without complaint, denies chest pain denies any pain in his extremities, he is feeling fine and in no distress. Allergies and Home Medications Allergies Uncoded Allergies: SULFA (Adverse Reaction, Unknown, 11/17/18) Home Medications Acetaminophen 500 Mg Tablet, 1,000 MG PO Q6H PRN for PAIN-MILD (1-4), (Reported) Aspirin 81 Mg Tablet.dr, 81 MG PO DAILY, (Reported) Cefuroxime Axetil 250 Mg Tablet, 250 MG PO BID, (Reported) STARTED TAKING 10/23/2020 FOR A 10 DAY SUPPLY Cetirizine HCl 10 Mg Tablet, 10 MG PO DAILY PRN for ALLERGIES, (Reported) Cimetidine 300 Mg Tablet, 300 MG PO BID, (Reported) Citalopram Hydrobromide 20 Mg Tablet, 20 MG PO HS, (Reported) Clonazepam 0.5 Mg Tablet, 0.5 MG PO 1400, (Reported) Diclofenac Sodium 100 Gm Gel..gram., 1 APPLIC TP BID, (Reported) APPLY TO LOWER BACK Fludrocortisone Acetate 0.1 Mg Tab, 0.2 MG PO DAILY, (Reported) TAKES 2 (0.1MG) TABS DAILY CHECK BP PRIOR TO ADMINISTRATION Gabapentin 300 Mg Capsule, 300 MG PO TID, (Reported) Levothyroxine Sodium 25 Mcg Tablet, 25 MCG PO DAILY, (Reported) Meclizine HCl 25 Mg Tablet, 25 MG PO Q6H PRN for DIZZINESS, (Reported) Methyl Salicylate/Menthol 113 Gm Cream..g., 1 APPLIC TP PRN PRN for BACK PAIN, (Reported) Nitroglycerin 0.4 Mg Tab.subl, 0.4 MG SL UD PRN for CHEST PAIN, (Reported) Omeprazole 40 Mg Capsule.dr, 40 MG PO DAILY, (Reported) Paroxetine HCl 20 Mg Tablet, 20 MG PO DAILY, (Reported) Polyethylene Glycol 3350 17 Gm Powd.pack, 17 GM PO DAILY, (Reported) MIX WITH 8 OUNCES OF WATER OR JUICE Potassium Chloride 10 Meq Tab.er.prt, 10 MEQ PO DAILY, (Reported) Tamsulosin HCl 0.4 Mg Cap, 0.4 MG PO DAILY AFTER SUPPER, (Reported) Trazodone HCl 150 Mg Tablet, 75 MG PO HS, (Reported) TAKES 1/2 (150MG) TABLET Patient Home Medication List Home Medication List Reviewed: Yes Review of Systems Review of Systems Constitutional: No fever, No malaise, No weakness Respiratory: Denies Cough, Denies Shortness of Air Cardiovascular: Chest Pain (but resolved) Gastrointestinal: Denies Abdominal Pain, Denies Poor Appetite, Denies Vomiting Musculoskeletal: No back pain, No muscle pain, No neck pain Skin: No change in color Past Iyhlzkl-Ybzzre-Yukops Hx Patient Social History Tobacco Use?: No Seasonal Allergies Seasonal Allergies: No Past Medical History Cardiac: Yes (per Assisted Living records CAD and orthostatic hypotension) Coronary Artery Disease, Hypotension Neurological: Yes (memory loss per Assisted Living records, Memory Loss) Dementia Genitourinary: Yes (hx urine retention) UTI-Chronic Gastrointestinal: Yes (poor historian) Gastroesophageal Reflux Chronic Back Pain Hypothyroidsim Psychosocial: Yes (poor historian, Depression per Assisted living records) Depression Blood Disorders: No Family Medical History Patient reports no known family medical history. Physical Exam Vital Signs Vital Signs - First Documented Capillary Refill : Height, Weight, BMI Height: 6'1.00" Weight: 218lbs. oz. 98.092359ye; 28.00 BMI Method:Stated General Appearance: No Apparent Distress, WD/WN HEENT: PERRL/EOMI, Normal ENT Inspection Neck: Full Range of Motion, Non Tender Respiratory: Chest Non Tender, Lungs Clear, Normal Breath Sounds Cardiovascular: Regular Rate, Rhythm, No JVD, No Murmur Gastrointestinal: Normal Bowel Sounds, Non Tender, Soft Extremity: Normal Capillary Refill, Non Tender Neurologic/Psychiatric: Alert, Oriented x3, No Motor/Sensory Deficits Skin: Normal Color, Warm/Dry Progress/Results/Core Measures Results/Orders Lab Results Laboratory Tests Test 04/10/21 10:20 Range/Units White Blood Count 5.1 4.3-11.0 10^3/uL Red Blood Count 4.13 L 4.35-5.85 10^6/uL Hemoglobin 12.9 L 13.3-17.7 G/DL Hematocrit 39 L 40-54 % Mean Corpuscular Volume 94 80-99 FL Mean Corpuscular Hemoglobin 31 25-34 PG Mean Corpuscular Hemoglobin Concent 33 32-36 G/DL Red Cell Distribution Width 14.0 10.0-14.5 % Platelet Count 171 130-400 10^3/uL Mean Platelet Volume 9.7 7.4-10.4 FL Immature Granulocyte % (Auto) 0 % Neutrophils (%) (Auto) 57 42-75 % Lymphocytes (%) (Auto) 30 12-44 % Monocytes (%) (Auto) 9 0-12 % Eosinophils (%) (Auto) 3 0-10 % Basophils (%) (Auto) 1 0-10 % Neutrophils # (Auto) 2.9 1.8-7.8 X 10^3 Lymphocytes # (Auto) 1.6 1.0-4.0 X 10^3 Monocytes # (Auto) 0.4 0.0-1.0 X 10^3 Eosinophils # (Auto) 0.1 0.0-0.3 10^3/uL Basophils # (Auto) 0.1 0.0-0.1 10^3/uL Immature Granulocyte # (Auto) 0.0 0.0-0.1 10^3/uL Sodium Level 139 135-145 MMOL/L Potassium Level 3.7 3.6-5.0 MMOL/L Chloride Level 105 98-107 MMOL/L Carbon Dioxide Level 26 21-32 MMOL/L Anion Gap 8 5-14 MMOL/L Blood Urea Nitrogen 15 7-18 MG/DL Creatinine 1.18 0.60-1.30 MG/DL Estimat Glomerular Filtration Rate 59 BUN/Creatinine Ratio 13 Glucose Level 87 70-105 MG/DL Calcium Level 8.5 8.5-10.1 MG/DL Corrected Calcium 8.7 8.5-10.1 MG/DL Total Bilirubin 0.8 0.1-1.0 MG/DL Aspartate Amino Transf (AST/SGOT) 13 5-34 U/L Alanine Aminotransferase (ALT/SGPT) 8 0-55 U/L Alkaline Phosphatase 50 40-136 U/L Troponin I < 0.30 <0.30 NG/ML Total Protein 6.2 L 6.4-8.2 GM/DL Albumin 3.7 3.2-4.5 GM/DL My Orders Orders - ROVENSTINEELLEN DO Ed Iv/Invasive Line Start (04/10/21 10:27) Cbc With Automated Diff (04/10/21 10:27) Comprehensive Metabolic Panel (04/10/21 10:27) Troponin I Fs (04/10/21 10:27) Chest 1 View Ap/Pa Only (04/10/21 10:27) Ekg Tracing (04/10/21 10:27) Vital Signs/I&O 04/10/21 04/10/21 04/10/21 10:10 10:10 11:38 Temp 36.5 36.2 Pulse 62 62 Resp 15 18 B/P (MAP) 143/78 (99) 152/84 Pulse Ox 92 94 O2 Delivery Room Air Room Air Room Air Progress Progress Note : Progress Note Patient well appearing, no injury, denies pain and denies chest pain or shortness of air Uneventful ER visit w normal labs and vitals. Initial ECG Impression Date: Apr 10, 2021 Initial ECG Impression Time: 10:20 Initial ECG Rate: 67 Initial ECG Rhythm: Normal Sinus Initial ECG Intervals: Normal Initial ECG Impression: Normal Initial ECG Comparisson: No Previous ECG Available Diagnostic Imaging Comments Date of Exam:04/10/21 CHEST 1 VIEW AP/PA ONLY INDICATION: Chest pain, syncopal episode COMPARISON: Frontal view of the chest is compared to an exam from October 28. FINDINGS: Exam demonstrates a hiatal hernia. Heart size and vascularity are normal. The lungs are clear. IMPRESSION: There are no acute findings. Dictated on workstation # [id number] Dict: 04/10/21 1104 Trans: 04/10/21 1106 [facility] [id number] Interpreted by: JOSE SAMAYOA MD Electronically signed by: Departure Impression Primary Impression: Chest pain Qualified Codes: R07.9 - Chest pain, unspecified Additional Impression: Episode of syncope Qualified Codes: R55 - Syncope and collapse Disposition: 01 HOME, SELF-CARE Condition: Stable Departure-Patient Inst. Decision time for Depature: 11:35 Referrals: MELISSA VARGAS MD (PCP/Family) Primary Care Physician Patient Instructions: Chest Pain, Adult ED, Syncope (Fainting) (DC) Add. Discharge Instructions: Follow up with your PCP this week regarding today's episode. Call 911 for any further episodes of chest pain or passing out ELLEN PARRA DO Apr 10, 2021 10:27
[2021-04-10 11:06] LABS: BASOPHILS # (AUTO) 0.1 10^3/uL (0.0-0.1); BASOPHILS % (AUTO) 1 % (0-10); EOSINOPHILS # (AUTO) 0.1 10^3/uL (0.0-0.3); EOSINOPHILS % (AUTO) 3 % (0-10); HEMATOCRIT 39 % (40-54); HEMOGLOBIN 12.9 G/DL (13.3-17.7); LYMPHOCYTES # (AUTO) 1.6 X 10^3 (1.0-4.0); LYMPHOCYTES % (AUTO) 30 % (12-44); MEAN CORPUSCULAR HEMOGLOBIN 31 PG (25-34); MEAN CORPUSCULAR HGB CONC 33 G/DL (32-36); MEAN CORPUSCULAR VOLUME 94 FL (80-99); MEAN PLATELET VOLUME 9.7 FL (7.4-10.4); MONOCYTES # (AUTO) 0.4 X 10^3 (0.0-1.0); MONOCYTES % (AUTO) 9 % (0-12); NEUTROPHILS # (AUTO) 2.9 X 10^3 (1.8-7.8); NEUTROPHILS % (AUTO) 57 % (42-75); PLATELET COUNT 171 10^3/uL (130-400); WHITE BLOOD COUNT 5.1 10^3/uL (4.3-11.0)
--- NOTE | 2021-04-10 11:07 | Diagnostic Imaging Report ---
INDICATION: Chest pain, syncopal episode COMPARISON: Frontal view of the chest is compared to an exam from October 28. FINDINGS: Exam demonstrates a hiatal hernia. Heart size and vascularity are normal. The lungs are clear. IMPRESSION: There are no acute findings. Dictated by: Dictated on workstation # [id number]
[2021-04-10 11:09] LABS: BUN/CREATININE RATIO 13; CARBON DIOXIDE 26 MMOL/L (21-32); CHLORIDE 105 MMOL/L (98-107); CREATININE SERUM 1.18 MG/DL (0.60-1.30); GFR ESTIMATED 59; GLUCOSE 87 MG/DL (70-105); POTASSIUM 3.7 MMOL/L (3.6-5.0); SODIUM 139 MMOL/L (135-145)
[2021-04-10 11:10] LABS: ALANINE AMINOTRANSFERASE 8 U/L (0-55); ALBUMIN 3.7 GM/DL (3.2-4.5); ALKALINE PHOSPHATASE 50 U/L (40-136); BILIRUBIN,TOTAL 0.8 MG/DL (0.1-1.0); CALCIUM 8.5 MG/DL (8.5-10.1); TOTAL PROTEIN 6.2 GM/DL (6.4-8.2)
[2021-04-10 11:38] VITALS: BP 152/84
== END 2021-04-10 11:41 | disposition home or self-care (01) ==
LOC: EDUNIT# 10:06 → ER FS 10:07
DX: R07.9 Chest pain, unspecified (principal); R55 Syncope and collapse; I95.9 Hypotension, unspecified; E03.9 Hypothyroidism, unspecified; F32.9 Major depressive disorder, single episode, unspecified; K21.9 Gastro-esophageal reflux disease without esophagitis; Z79.82 Long term (current) use of aspirin; Z79.899 Other long term (current) drug therapy; Z79.890 Hormone replacement therapy
CPT/HCPCS: 36415; 71045; 80053; 84484; 85025; 93005

== ENCOUNTER 2021-06-23 00:35 | Emergency (ER) | payer MEDICARE ==
[~2021-06-23 00:35] MED LIST changes: +POTA-160 PO; -POTA10TA36 PO; +POTA10TA37 PO; -POTA10TA6 PO
--- OUTSIDE RECORDS SUMMARY | 2021-06-23 00:40 | XMS REPORT | Clinical Summary ---
Author Author [facility] Organization [facility] Address Unknown Phone Unavailable Care Team Providers Care Ekg Tech Name Role Phone Self, Primo FERRELL PCP Allergies Comments Active Allergy Reactions Severity Noted Date Sulfa (Sulfonamide 11/17/2018 Antibiotics) Sulfamethoxazole-Trimetho Diarrhea Low 01/25 prim Medications End Date Status Medication Sig Dispensed Refills Start Date Active nitroglycerin (NITROSTAT) place 1 1 0 0.4 MG SL tablet tablet 4 (0.4MG) by sublingual route at the 1st sign of attack; may repeat every 5 min until relief; if pain persists after 3 tablets in 15 min, prompt medical attention is recommended Active pantoprazole (PROTONIX) take 1 tablet 30 0 40 MG tablet (40MG) by 4 oral route every day Active tamsulosin (FLOMAX) 0.4 Take 0.4 mg 0 mg Cp24 by mouth daily. Active aspirin 81 MG EC tablet Take 1 tablet 0 (81 mg total) 6 by mouth daily. Active levothyroxine (SYNTHROID, Take 1 tablet 0 04/0 LEVOTHROID) 25 MCG tablet by mouth 7 daily. Active cetirizine (ZYRTEC) 10 MG Take 10 mg by 0 tablet mouth daily as needed. Active donepezil (ARICEPT) 5 MG Take 5 mg by 0 tablet mouth nightly. Active fludrocortisone Take 0.2 mg 0 (FLORINEF) 0.1 mg tablet by mouth daily. Active meclizine (ANTIVERT) 25 Take 25 mg by 0 mg tablet mouth 3 (three) times a day as needed. Active rOPINIRole (REQUIP) 1 MG Take 1 mg by 0 tablet mouth 3 (three) times a day. Active sertraline (ZOLOFT) 100 Take 100 mg 0 mg tablet by mouth daily. Active gabapentin (NEURONTIN) Take 1 1 capsule 1 300 MG capsule capsule (300 8 mg total) by mouth 2 (two) times a day. Additional Information Patient taking differently: 300 mg Oral 2 times daily, Indications: neuropathic pain, Reported on 12/16/2018 Active atorvastatin (LIPITOR) 40 TAKE 1 TABLET 90 tablet 0 MG tablet BY MOUTH 8 NIGHTLY Active acetaminophen (TYLENOL) Take 1,000 mg 0 500 MG tabletIndications: by mouth pain every 6 (six) hours as needed for pain. Active QUEtiapine (SEROQUEL) 50 Take 100 mg 0 MG tablet by mouth nightly. Active cholecalciferol, vitamin Take 5,000 0 D3, 1,000 unit tablet Units by mouth daily. Active Problems Problem Noted Date Aspiration pneumonitis 03/06/2019 Pulmonary infiltrates 12/24/2018 Large hiatal hernia 12/24/2018 Alzheimer's disease 12/16/2018 Last Assessment & Plan: Formatting of this note might be differ ent from the original. With no current behavioral issues, cont inue home medications Obstructive sleep apnea 12/16/2018 Last Assessment & Plan: Formatting of this note might be differ ent from the original. - will need 2-3 L oxygen at night Hypoalbuminemia 12/16/2018 Generalized weakness 12/16/2018 Last Assessment & Plan: Formatting of this note might be differ ent from the original. - pt / ot evaluation - no clear focal deficit Elevated bilirubin 11/18/2018 Last Assessment & Plan: Formatting of this note might be differ ent from the original. Patient with chronically elevated bilir ubin suspect rotors or Gilbert's syndrome - us neg - hx dalia Hypothyroidism due to acquired atrophy of thyroid Last Assessment & Plan: Formatting of this note might be differ ent from the original. - tsh normal Acute urinary tract infection 11/17/2018 Last Assessment & Plan: Formatting of this note might be differ ent from the original. Asymptomatic. No urinary frequency / ur gency, suprapubic pain, or dysuria. Hx of recurrent UTIs, urinary retention , and BPH. Hx of E coli colonization and MDR to Unasyn, ampicillin, ciproflo xacin, gentamycin, levofloxacin, and bactrim. UA consistent with infection. UCx obtai darcie at OSH. BCx here with NGTD. Plan: Continue Rocephin and monitor respon se. FU with OSH regarding UCx results. Supportive care. Paroxysmal atrial fibrillation 09/05/2016 Last Assessment & Plan: Formatting of this note might be differ ent from the original. Continue home rate control medication, family reports he does not take anticoagulation this was discontinued by cardiology Aortic root dilatation 06/01/2016 Overview: Formatting of this note might be differ ent from the original. [facility] 10/27/2015 S/P coronary artery stent placement 07/26/2013 Overview: Formatting of this note might be differ ent from the original. Aspiration thrombectomy and SABINA to RCA Late onset Alzheimer's disease without behavioral dis turbance 05/15/2012 Last Assessment & Plan: Formatting of this note might be differ ent from the original. As of the patient's admission on , his prior to admission treatment included Aricept and Seroquel . Baseline mental status is unclear. Plan: Continue home regimen. 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 As of the patient's admission on , his prior to admission treatment included Lipitor. Plan: Continue home regimen. Obesity (BMI 30.0-34.9) Benign prostatic hyperplasia with urina ry retention Last Assessment & Plan: Formatting of this note might be differ ent from the original. Continue home medications Peripheral neuropathy Last Assessment & Plan: Formatting of this note might be differ ent from the original. As of the patient's admission on , his prior to admission treatment included Neurontin and Lyrica . Plan: Continue home regimen Neurontin. Tricuspid regurgitation History of syncope History of ST elevation myocardial infa rction (STEMI) Coronary artery disease involving nativ e coronary artery of [place] heart without angina pectoris Last Assessment & Plan: Formatting of this note might be differ ent from the original. As of the patient's admission on , his prior to admission treatment included ASA and Lipitor. Den ies CP and associated ACS symptoms. Plan: Continue home regimen. Resolved Problems Problem Noted Date Resolved Date Acute on chronic respiratory failure with hypoxia 12/19/19 19 03/06/2019 Last Assessment & Plan: Formatting of this note might be differ ent from the original. Steroids on board for pneumonitis. Impr oving. Wean O2 if able. Home oxygen study at d/c maybe as early as tomorrow . Acute metabolic encephalopathy 11/17/2018 Last Assessment & Plan: Formatting of this note might be differ ent from the original. Suspect secondary to acute infection an d hypovolemia with underlying dementia. No indication of SIRS or seps is. Continues to have confusion. RVP negative. PCT 0.18. Plan: Treat underlying infection as not ed (See UTI). Acute on chronic diastolic heart failure 12/24/2018 Last Assessment & Plan: Formatting of this note might be differ ent from the original. - no chronic diuretic at home - now wit h acute component - BNP 800s, not severely elevated - Echo unremarkable - Continue IV lasix. Bicarb slightly up but BUN/Cr wnl. - Strict I/O manager intermediate current use of anticoagulant 03/27/2017 Overview: Formatting of this note might be differ ent from the original. Eliquis Family History Medical History Relation Name Comments Coronary artery bypass Brother graft Heart failure Brother No Known Problems Father No Known Problems Mother Relation Name Status Comments Brother Alive Father Cause of was unknown at age 50. (Age 50) Mother Cause of was non-cardiac at age 90. Social History Date Tobacco Use Types Packs/Day Years Used Quit: 10/27/1964 Former Smoker Cigarettes 0.5 2 Smokeless Tobacco: Former Chew Quit: 2012 User Comments Alcohol Use Standard Drinks/Week No 0 (1 standard drink = 0.6 o z pure alcohol) Sex Assigned at Date Recorded Not on file Last Filed Vital Signs Reading Time Taken Comments Vital Sign 151/87 03/06/2019 2:42 PM CDT Blood Pressure 70 03/06/2019 2:42 PM CDT Pulse 36.4 C (97.5 F) 12/28/2018 7:17 AM CDT Temperature 16 03/06/2019 2:42 PM CDT Respiratory Rate 98% 03/06/2019 2:42 PM CDT Oxygen Saturation - - Inhaled Oxygen Concentration 98.1 kg (216 lb 3.2 oz) 03/06/2019 2:42 PM CDT Weight 185.4 cm (6' 1") 03/06/2019 2:42 PM CDT Height 28.52 03/06/2019 2:42 PM CDT Body Mass Index Plan of Treatment Health Maintenance Due Date Last Done Comments Advance Directive has 1940 been filed Dementia Cognitive 1940 Assessment # Medicare Annual Wellness 1940 Td/Tdap# 1940 COVID-19 Vaccine (1) 1951 Zoster Vaccine# (1 of 2) 1989 Advance Directive 02/17/2004 Conversation Depression Screening 02/17/2004 PHQ-9 # Patient Needs Advance 02/17/2004 Directive Pneumococcal Vaccine: 65+ 02/17/2004 Years (1 of 1 - PPSV23) Fall Risk Assessment # 12/29/2019 12/28/2018 Influenza Vaccine (#1) 2021 09/13/2018, 08/21/2017, 08/31/2016, Additional history exists Results Not on filefrom Last 3 Months Insurance Type Payer Benefit Subscriber ID Effective Phone Address Plan / Dates Group Medicare MEDICARE MEDICARE [id number] 2004-P [place] PART A [facility] OUT OF [id number] [id number] [facility] [id number] Toni Hardy Personal/F Self 1940 [address] [facility] (Home) [place], [place] [address] [address] Toni Hardy Pavithra Personal/F Self 1940 [address] [facility] (Home) [place] [id number] Advance Directives For more information, please contact: [phone] Patient Associate Professor Of Radiology Explanation Type Date Recorded Advance Directives and Living Will Power of Negative Checker Health Care Directive Date Inactivated Comments Code Status Date Activated 12/28/2018 4:08 PM Full Code 12/16/2018 3:23 PM 11/20/2018 5:09 PM Full Code 11/17/2018 9:37 PM
[2021-06-23] MEDS ORDERED: ASPIRIN 81 MG CHEW (CHILDREN'S ASA) PO ONE (00:45)
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
[2021-06-23] MEDS ORDERED: OLANZapine 5 MG ODT (ZyPREXA ZYDIS) PO ONE ×2 (01:00→02:00)
[2021-06-23 01:05] LABS: HEMATOCRIT 36 % (40-54); HEMOGLOBIN 11.8 g/dL (13.3-17.7); MEAN CORPUSCULAR HEMOGLOBIN 30 pg (25-34); MEAN CORPUSCULAR VOLUME 92 fL (80-99)
[2021-06-23 01:06] LABS: BASOPHILS # (AUTO) 0.1 10^3/uL (0.0-0.1); BASOPHILS % (AUTO) 1 % (0-10); EOSINOPHILS # (AUTO) 0.2 10^3/uL (0.0-0.3); EOSINOPHILS % (AUTO) 3 % (0-10); LYMPHOCYTES # (AUTO) 2.4 X 10^3 (1.0-4.0); LYMPHOCYTES % (AUTO) 40 % (12-44); MEAN CORPUSCULAR HGB CONC 33 g/dL (32-36); MEAN PLATELET VOLUME 9.3 fL (9.0-12.2); MONOCYTES # (AUTO) 0.5 X 10^3 (0.0-1.0); MONOCYTES % (AUTO) 9 % (0-12); NEUTROPHILS # (AUTO) 2.8 X 10^3 (1.8-7.8); NEUTROPHILS % (AUTO) 46 % (42-75); PLATELET COUNT 191 10^3/uL (130-400)
[2021-06-23 01:19] LABS: INR 1.1 (0.8-1.4)
[2021-06-23 01:28] LABS: ALBUMIN 3.5 GM/DL (3.2-4.5); BILIRUBIN,TOTAL 0.6 MG/DL (0.1-1.0); CALCIUM 8.6 MG/DL (8.5-10.1); CREATININE SERUM 1.26 MG/DL (0.60-1.30); TOTAL PROTEIN 5.9 GM/DL (6.4-8.2)
[2021-06-23] MEDS ORDERED: MIDAZOLAM 2 MG/2 ML (VERSED) VIAL ONE (01:28)
[2021-06-23 01:30] LABS: POTASSIUM 3.5 MMOL/L (3.6-5.0)
[2021-06-23] MEDS ORDERED: MIDAZOLAM 2 MG/2 ML (VERSED) VIAL IM ONE (01:45)
[2021-06-23] MEDS ORDERED: MIDAZOLAM 2 MG/2 ML (VERSED) VIAL IV ONE ×2 (01:45→02:00)
[2021-06-23 02:47] VITALS: BP 192/92
--- NOTE | 2021-06-23 06:19 | Diagnostic Imaging Report ---
INDICATION: Chest pain. Comparison with 04/10/2021. FINDINGS: The lungs are well aerated. There is mild blunting of the left costophrenic angle. The heart is mildly enlarged. The pulmonary vasculature is normal. There is obscuration of a portion of the left hemidiaphragm likely secondary to left basilar infiltrate. No pneumothorax. IMPRESSION: Blunting of the left costophrenic angle which may represent small left basilar effusion. There is some obscuration of the left hemidiaphragm likely secondary to left basilar pneumonia. Dictated by: Dictated on workstation # [id number]
[2021-06-23] MEDS ORDERED: CEPH500T PO (15:05)
== END 2021-06-23 03:00 | disposition home or self-care (01) ==
LOC: EDUNIT# 00:35 → ER FS 00:36
DX: R07.9 Chest pain, unspecified (principal); I95.9 Hypotension, unspecified; F03.90 Unspecified dementia, unspecified severity, without behavioral disturbance, psychotic disturbance, mood disturbance, and anxiety; E03.9 Hypothyroidism, unspecified; F32.9 Major depressive disorder, single episode, unspecified; K21.9 Gastro-esophageal reflux disease without esophagitis; I10 Essential (primary) hypertension; Z79.890 Hormone replacement therapy; Z79.82 Long term (current) use of aspirin; Z79.899 Other long term (current) drug therapy
CPT/HCPCS: 36415; 71045; 80053; 84484; 85025; 85610; 85730; 93005; 93041; 96374

== ENCOUNTER 2021-06-23 03:39 | Emergency (ER) | payer MEDICARE ==
[~2021-06-23] VITALS: Ht 182 cm; Wt 9.7 kg
[~2021-06-23 03:39] MED LIST changes: -POTA-160 PO; +POTA10TA36 PO; -POTA10TA37 PO; +POTA10TA6 PO
[2021-06-23 03:52] VITALS: BP 185/72
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
--- NOTE | 2021-06-23 07:15 | Diagnostic Imaging Report ---
PROCEDURE: CT head without contrast. TECHNIQUE: Multiple contiguous axial images were obtained through the brain without the use of intravenous contrast. Auto Exposure Controls were utilized during the CT exam to meet ALARA standards for radiation dose reduction. INDICATION: Fall. Headache. FINDINGS: There is considerable motion artifact. Exam was repeated. There is diffuse cortical atrophy. Diffuse white matter changes. Ventricles are not dilated. There is no intracranial hemorrhage. No mass effect. Basal cisterns are clear. Mastoid air cells and paranasal sinuses are clear. No calvarial fracture. IMPRESSION: Diffuse atrophy with no acute abnormalities. These findings are concordant with the preliminary report. Dictated by: Dictated on workstation # [id number]
[2021-06-23] MEDS ORDERED: CEPH500T PO (15:05)
== END 2021-06-23 04:31 | disposition home or self-care (01) ==
LOC: EDUNIT# 03:39 → ER FS 03:43
DX: S09.90XA Unspecified injury of head, initial encounter (principal); I95.9 Hypotension, unspecified; F03.90 Unspecified dementia, unspecified severity, without behavioral disturbance, psychotic disturbance, mood disturbance, and anxiety; K21.9 Gastro-esophageal reflux disease without esophagitis; F32.9 Major depressive disorder, single episode, unspecified; E03.9 Hypothyroidism, unspecified; Z79.890 Hormone replacement therapy; Z79.82 Long term (current) use of aspirin; Z79.899 Other long term (current) drug therapy; W22.8XXA Striking against or struck by other objects, initial encounter
CPT/HCPCS: 70450

== ENCOUNTER 2021-06-23 12:37 | Emergency (ER) | payer MEDICARE ==
[2021-06-23] MEDS ORDERED: NS IV 1000 ML 1,000 ML IV STA (12:44)
[2021-06-23] MEDS ORDERED: GABAPENTIN 100 MG (NEURONTIN) CAP PO STA (12:44)
--- NOTE | 2021-06-23 12:53 | ED General ---
General Chief Complaint: Altered Mental Status Stated Complaint: LETHARGY Nursing Triage Note: EMS reports patient fell yesterday, [facility] staff reports patient has been lethargic, unable to transfer/ambulate independently and has been incontinent since his fall, which is not normal for patient per staff. EMS states this is patient's third ED visit since yesterday. Source of Information: Patient, EMS, Group Home Records, Old Records Exam Limitations: Other (dementia) History of Present Illness Date Seen by Provider: Jun 23, 2021 Time Seen by Provider: 12:37 Initial Comments 81-year-old male presenting [facility] at [facility] due to continued fatigue and confusion. They report that he was not helping with ADLs like he usually does. He had fallen at [facility]. Normally he walks and gets around at the correction. This is his third ER visit since midnight. His labs have been stable and he had no acute findings on chest x-ray or CT had on previous visits. His complaint on arrival today is that his feet are burning and he does have a history of neuropathy. He denied any other complaints. He could not remember any other visits to the ER today. He denied having chest pain or headache. He denied having any nausea or vomiting. Timing/Duration: 12 Hours Severity: Moderate Associated Systoms: No Chest Pain, No Cough, No Diaphoresis, No Fever/Chills, No Headaches, No Loss of Appetite; Malaise; No Nausea/Vomiting, No Rash, No Seizure, No Shortness of Air, No Syncope; Weakness Allergies and Home Medications Allergies Coded Allergies: ciprofloxacin (Verified Allergy, Unknown, 06/23/21) Uncoded Allergies: SULFA (Adverse Reaction, Unknown, 11/17/18) Patient Home Medication List Home Medication List Reviewed: Yes Acetaminophen (Tylenol Extra Strength) 500 Mg Tablet, 1,000 MG PO Q6H PRN for PAIN-MILD (1-4), (Reported) Entered as Reported by: KAL PATHAK on 02/24/20 0940 Aspirin (Aspirin EC) 81 Mg Tablet.dr, 81 MG PO DAILY, (Reported) Entered as Reported by: KAL PATHAK on 02/24/20 0940 Cefuroxime Axetil (Cefuroxime) 250 Mg Tablet, 250 MG PO BID, (Reported) Entered as Reported by: ALLEN RUTLEDGE on 10/28/20 1634 Cephalexin (Cephalexin) 500 Mg Tablet, 500 MG PO TID Prescribed by: RACH COBB on 06/23/21 1505 Cetirizine HCl (Cetirizine HCl) 10 Mg Tablet, 10 MG PO DAILY PRN for ALLERGIES, (Reported) Entered as Reported by: KAL PATHAK on 02/24/20 0940 Cimetidine (Cimetidine) 300 Mg Tablet, 300 MG PO BID, (Reported) Entered as Reported by: ALLEN RUTLEDGE on 10/28/20 1634 Citalopram Hydrobromide (Citalopram HBr) 20 Mg Tablet, 20 MG PO HS, (Reported) Entered as Reported by: ALLEN RUTLEDGE on 10/28/20 1634 Clonazepam (Clonazepam) 0.5 Mg Tablet, 0.5 MG PO 1400, (Reported) Entered as Reported by: ALLEN RUTLEDGE on 10/28/20 1634 Diclofenac Sodium (Voltaren) 100 Gm Gel..gram., 1 APPLIC TP BID, (Reported) Entered as Reported by: ALLEN RUTLEDGE on 10/28/20 1634 Fludrocortisone Acetate (Fludrocortisone Acetate) 0.1 Mg Tab, 0.2 MG PO DAILY, (Reported) Entered as Reported by: KAL PATHAK on 02/24/20 0940 Gabapentin (Neurontin) 300 Mg Capsule, 300 MG PO TID, (Reported) Entered as Reported by: KAL PATHAK on 02/24/20 0940 Levothyroxine Sodium (Levothyroxine Sodium) 25 Mcg Tablet, 25 MCG PO DAILY, (Reported) Entered as Reported by: RAJANI VALLECILLO on 11/17/18 1527 Meclizine HCl (Meclizine HCl) 25 Mg Tablet, 25 MG PO Q6H PRN for DIZZINESS, (Reported) Entered as Reported by: KAL PATHAK on 02/24/20 0940 Methyl Salicylate/Menthol (Muscle Rub Cream) 113 Gm Cream..g., 1 APPLIC TP PRN PRN for BACK PAIN, (Reported) Entered as Reported by: ALLEN RUTLEDGE on 10/28/20 1634 Nitroglycerin (Nitroglycerin) 0.4 Mg Tab.subl, 0.4 MG SL UD PRN for CHEST PAIN, (Reported) Entered as Reported by: KAL PATHAK on 02/24/20 0940 Omeprazole (Omeprazole) 40 Mg Capsule.dr, 40 MG PO DAILY, (Reported) Entered as Reported by: KAL PATHAK on 02/24/20 09 Paroxetine HCl (Paroxetine HCl) 20 Mg Tablet, 20 MG PO DAILY, (Reported) Entered as Reported by: ALLEN RUTLEDGE on 10/28/20 163 Polyethylene Glycol 3350 (Miralax) 17 Gm Powd.pack, 17 GM PO DAILY, (Reported) Entered as Reported by: ALLEN RUTLEDGE on 10/28/20 163 Potassium Chloride (Potassium Chloride) 10 Meq Tab.er.prt, 10 MEQ PO DAILY, (Reported) Entered as Reported by: ALLEN RUTLEDGE on 10/28/20 163 Tamsulosin HCl (Flomax) 0.4 Mg Cap, 0.4 MG PO DAILY AFTER SUPPER, (Reported) Entered as Reported by: KAL PATHAK on 02/24/20 09 Trazodone HCl (Trazodone HCl) 150 Mg Tablet, 75 MG PO HS, (Reported) Entered as Reported by: ALLEN RUTLEDGE on 10/28/20 163 Review of Systems Review of Systems Constitutional: No chills, No fever EENTM: no symptoms reported Respiratory: no symptoms reported Cardiovascular: no symptoms reported Gastrointestinal: no symptoms reported Genitourinary: no symptoms reported Musculoskeletal: other (burning pain in feet) Skin: no symptoms reported Psychiatric/Neurological: Weakness Past [id number]-[id number]-Qmjuah Hx Seasonal Allergies Seasonal Allergies: No Past Medical History Surgery/Hospitalization HX: Dementia Cardiac: Yes (per Assisted Living records CAD and orthostatic hypotension) Coronary Artery Disease, Hypotension Neurological: Yes (memory loss per Assisted Living records, Memory Loss) Dementia Genitourinary: Yes (hx urine retention) UTI-Chronic Gastrointestinal: Yes (poor historian) Gastroesophageal Reflux Chronic Back Pain Hypothyroidsim Psychosocial: Yes (poor historian, Depression per Assisted living records) Depression Blood Disorders: No Family Medical History Patient reports no known family medical history. Physical Exam Vital Signs Vital Signs - First Documented 06/23/21 12:41 Temp 36.3 Pulse 70 Resp 18 B/P (MAP) 130/69 (89) Pulse Ox 93 O2 Delivery Room Air Capillary Refill : Less Than 3 Seconds Height, Weight, BMI Height: 6'1.00" Weight: 218lbs. oz. 98.873019xv; 2.00 BMI Method:Stated General Appearance: No Apparent Distress HEENT: PERRL/EOMI; No Moist Mucous Membranes (slightly dry mucous membranes) Respiratory: Chest Non Tender, Lungs Clear, Normal Breath Sounds, No Accessory Muscle Use, No Respiratory Distress Cardiovascular: Regular Rate, Rhythm, Normal Peripheral Pulses Gastrointestinal: Normal Bowel Sounds, No Pulsatile Mass, Non Tender, Soft Rectal: Deferred Extremity: Normal Capillary Refill, Normal Inspection, No Pedal Edema Neurologic/Psychiatric: Alert; No Oriented x3 (oriented to self only) Skin: Warm/Dry Progress/Results/Core Measures Suspected Sepsis SIRS Temperature: Pulse: 70 Respiratory Rate: 18 Laboratory Tests 06/23/21 12:55: White Blood Count 6.6 Blood Pressure 130 /69 Mean: 89 Laboratory Tests 06/23/21 12:55: Creatinine 1.31H, INR Comment 1.0, Platelet Count 198, Total Bilirubin 0.7 Results/Orders Lab Results Laboratory Tests Test 06/23/21 12:55 06/23/21 13:42 Range/Units White Blood Count 6.6 4.3-11.0 10^3/uL Red Blood Count 3.93 L 4.30-5.52 10^6/uL Hemoglobin 12.0 L 13.3-17.7 g/dL Hematocrit 36 L 40-54 % Mean Corpuscular Volume 92 80-99 fL Mean Corpuscular Hemoglobin 31 25-34 pg Mean Corpuscular Hemoglobin Concent 33 32-36 g/dL Red Cell Distribution Width 13.8 10.0-14.5 % Platelet Count 198 130-400 10^3/uL Mean Platelet Volume 9.2 9.0-12.2 fL Immature Granulocyte % (Auto) 0 % Neutrophils (%) (Auto) 57 42-75 % Lymphocytes (%) (Auto) 30 12-44 % Monocytes (%) (Auto) 10 0-12 % Eosinophils (%) (Auto) 3 0-10 % Basophils (%) (Auto) 1 0-10 % Neutrophils # (Auto) 3.7 1.8-7.8 X 10^3 Lymphocytes # (Auto) 2.0 1.0-4.0 X 10^3 Monocytes # (Auto) 0.6 0.0-1.0 X 10^3 Eosinophils # (Auto) 0.2 0.0-0.3 10^3/uL Basophils # (Auto) 0.1 0.0-0.1 10^3/uL Immature Granulocyte # (Auto) 0.0 0.0-0.1 10^3/uL Prothrombin Time 13.9 12.2-14.7 SEC INR Comment 1.0 0.8-1.4 Activated Partial Thromboplast Time 28 24-35 SEC Sodium Level 142 135-145 MMOL/L Potassium Level 3.6 3.6-5.0 MMOL/L Chloride Level 108 H 98-107 MMOL/L Carbon Dioxide Level 27 21-32 MMOL/L Anion Gap 7 5-14 MMOL/L Blood Urea Nitrogen 13 7-18 MG/DL Creatinine 1.31 H 0.60-1.30 MG/DL Estimat Glomerular Filtration Rate 52 BUN/Creatinine Ratio 10 Glucose Level 80 70-105 MG/DL Calcium Level 8.5 8.5-10.1 MG/DL Corrected Calcium 8.7 8.5-10.1 MG/DL Total Bilirubin 0.7 0.1-1.0 MG/DL Aspartate Amino Transf (AST/SGOT) 16 5-34 U/L Alanine Aminotransferase (ALT/SGPT) 10 0-55 U/L Alkaline Phosphatase 46 40-136 U/L Troponin I < 0.30 <0.30 NG/ML Total Protein 6.2 L 6.4-8.2 GM/DL Albumin 3.8 3.2-4.5 GM/DL Urine Color YELLOW Urine Clarity CLEAR Urine pH 7.5 5-9 Urine Specific [place] 1.010 L 1.016-1.022 Urine Protein NEGATIVE NEGATIVE Urine Glucose (UA) NEGATIVE NEGATIVE Urine Ketones NEGATIVE NEGATIVE Urine Nitrite NEGATIVE NEGATIVE Urine Bilirubin NEGATIVE NEGATIVE Urine Urobilinogen 0.2 < = 1.0 MG/DL Urine Leukocyte Esterase 1+ H NEGATIVE Urine RBC (Auto) NEGATIVE NEGATIVE Urine RBC NONE /HPF Urine WBC 2-5 /HPF Urine Squamous Epithelial Cells RARE /HPF Urine Crystals NONE /LPF Urine Bacteria TRACE /HPF Urine Casts NONE /LPF Urine Mucus NEGATIVE /LPF Urine Culture Indicated NO My Orders Orders - RACH COBB MD Cbc With Automated Diff (06/23/21 12:44) Ekg Tracing (06/23/21 12:44) Comprehensive Metabolic Panel (06/23/21 12:44) Protime With Inr (06/23/21 12:44) Partial Thromboplastin Time (06/23/21 12:44) O2 (06/23/21 12:44) Monitor-Rhythm Ecg Trace Only (06/23/21 12:44) Ed Iv/Invasive Line Start (06/23/21 12:44) Troponin I Fs (06/23/21 12:44) Ua Culture If Indicated (06/23/21 12:44) Ct Head Wo (06/23/21 12:44) Ns Iv 1000 Ml (Sodium Chloride 0.9%) (06/23/21 12:44) Gabapentin Capsule/Tablet (Neurontin Cap (06/23/21 12:44) Ceftriaxone (Rocephin) (06/23/21 15:06) Vital Signs/I&O 06/23/21 06/23/21 12:41 17:00 Temp 36.3 Pulse 70 68 Resp 18 18 B/P (MAP) 130/69 (89) 138/78 Pulse Ox 93 94 O2 Delivery Room Air Room Air Capillary Refill : Less Than 3 Seconds Blood Pressure Mean: 89 Progress Note #1: Progress Note Patient has had 3 visits now within 12 hours. His complaint today for me was burning pain in his feet which is consistent with his history of neuropathy. He has been evaluated with labs and imaging earlier this morning. As the staff at the [facility] reported that he had falls we will repeat the CT scan to see if there has been any change. Repeat labs and since he has not had a urinalysis done we will add that on to see if he might have a UTI. Give IV fluids for hydration. Order gabapentin to try and help with his neuropathy pain Progress Note #2: Progress Note Labs all appear stable without acute significant abnormality. His creatinine has gone up slightly to 1.31. His cardiac enzymes show troponin of less than 0.3. His CT scan continues to show no acute abnormality. He has chronic changes that have not shown any acute changes. While in the ED patient seemed to be improving as he was receiving IV fluids and hydration. He did get up out of bed on his own and was wondering in the hallway. He was redirected by staff and able to move back to his room and rest. After the urine was obtained showed 1+ leukocyte esterase so we will place him on a short course of antibiotics. Based off of his last urine culture from several years ago he was sensitive to cephalosporins for E. coli. We will give a dose of Rocephin here and discharged on Keflex. I did discuss this case with Dr. Segura who is on-call for [facility]. As patient has no indication for an acute medical admission and has had extensive work-up and evaluation in the last 12 hours, will discharge back to the correction. Counseled the correction to call Dr. Martinez and have him come see the patient emergently at the correction for visit if continued concerns. ECG Initial ECG Impression Date: Jun 23, 2021 Initial ECG Impression Time: 13:23 Initial ECG Rate: 63 Initial ECG Rhythm: Normal Sinus Initial ECG Comparisson: Unchanged Comment Normal sinus rhythm with a heart rate of 63 bpm. [place] interval 198 ms. QT interval 403 ms with a QTc interval [address] elevation. Appears similar to prior tracings. Diagnostic Imaging Diagonstic Imaging: CT Plain Films/CT/US/NM/MRI: head Comments [facility] [place] NAME: RICKY JORDAN [facility] REC#: [id number] PT STATUS: REG ER : 1940 PHYSICIAN: RACH COBB MD ADMIT DATE: 06/23/21/ER FS Draft Date of Exam:06/23/21 CT HEAD WO CLINICAL INDICATION: Patient with lethargy and fall this morning. EXAM: Axial CT scan of the brain without IV contrast with coronal and sagittal reformatted images. Auto Exposure Controls were utilized during the CT exam to meet ALARA standards for radiation dose reduction. COMPARISON: Head CT without contrast dated 06/23/2021 at 0357 hours. FINDINGS: There is no evidence of acute cerebral infarct, intracranial hemorrhage, or gross mass effect. Stable diffuse brain parenchymal volume loss with the temporal lobes affected the most. There are multiple patchy and confluent areas of low-attenuation white matter changes involving both cerebral hemispheres and periventricular regions. There is normal thompson-white matter distinction. There is no significant midline shift or herniation. There is no evidence of hydrocephalus. The basal cisterns are unremarkable. The skull, extracranial soft tissue, and orbits are unremarkable. There is mild ethmoid sinus mucosal thickening. Temporal bones show no significant abnormality. IMPRESSION: Grossly stable CT scan of the brain with no evidence of acute intracranial process. Dictated on workstation # [id number] Dict: 06/23/21 1320 Trans: 06/23/21 1327 [id number] Interpreted by: MARIBELL BRICEÑO MD Electronically signed by: Reviewed: Reviewed by Me Departure Impression Primary Impression: Dehydration Additional Impressions: Chronic dementia Qualified Codes: F03.91 - Unspecified dementia with behavioral disturbance Cystitis without hematuria Disposition: HOME, SELF-CARE Condition: Stable Departure-Patient Inst. Decision time for Depature: 15:05 Referrals: MELISSA MARTINEZ MD (PCP/Family) Primary Care Physician Patient Instructions: Dementia ED, Urinary Tract Infection, Adult ED, Dehydration, Adult ED Add. Discharge Instructions: Take antibiotics to treat for urine infection. Make sure you are drinking plenty of fluids and staying well hydrated. If further problems/concerns then check with Dr. Martinez and see if he can come see you at the correction for evaluation All discharge instructions reviewed with patient and/or family. Voiced understanding. Scripts Cephalexin (Cephalexin) 500 Mg Tablet 500 MG PO TID for UTI for 5 Days, #15 TAB 0 Refills Prov: RACH COBB MD 06/23/21 RACH COBB MD Jun 23, 2021 12:53
[2021-06-23 13:13] LABS: HEMATOCRIT 36 % (40-54); MEAN CORPUSCULAR HEMOGLOBIN 31 pg (25-34); WHITE BLOOD COUNT 6.6 10^3/uL (4.3-11.0)
[2021-06-23 13:14] LABS: BASOPHILS % (AUTO) 1 % (0-10); EOSINOPHILS % (AUTO) 3 % (0-10); LYMPHOCYTES % (AUTO) 30 % (12-44); MEAN CORPUSCULAR HGB CONC 33 g/dL (32-36); MEAN CORPUSCULAR VOLUME 92 fL (80-99); MEAN PLATELET VOLUME 9.2 fL (9.0-12.2); MONOCYTES % (AUTO) 10 % (0-12); NEUTROPHILS % (AUTO) 57 % (42-75); PLATELET COUNT 198 10^3/uL (130-400)
[2021-06-23 13:15] LABS: BASOPHILS # (AUTO) 0.1 10^3/uL (0.0-0.1); EOSINOPHILS # (AUTO) 0.2 10^3/uL (0.0-0.3); MONOCYTES # (AUTO) 0.6 X 10^3 (0.0-1.0); NEUTROPHILS # (AUTO) 3.7 X 10^3 (1.8-7.8)
[2021-06-23 13:18] LABS: PROTHROMBIN TIME PATIENT 13.9 SEC (12.2-14.7)
[2021-06-23 13:27] LABS: BILIRUBIN,TOTAL 0.7 MG/DL (0.1-1.0); CALCIUM 8.5 MG/DL (8.5-10.1); CREATININE SERUM 1.31 MG/DL (0.60-1.30); POTASSIUM 3.6 MMOL/L (3.6-5.0)
[2021-06-23 13:28] LABS: ALBUMIN 3.8 GM/DL (3.2-4.5); TOTAL PROTEIN 6.2 GM/DL (6.4-8.2)
--- NOTE | 2021-06-23 13:28 | Diagnostic Imaging Report ---
CLINICAL INDICATION: Patient with lethargy and fall this morning. EXAM: Axial CT scan of the brain without IV contrast with coronal and sagittal reformatted images. Auto Exposure Controls were utilized during the CT exam to meet ALARA standards for radiation dose reduction. COMPARISON: Head CT without contrast dated 06/23/2021 at 0357 hours. FINDINGS: There is no evidence of acute cerebral infarct, intracranial hemorrhage, or gross mass effect. Stable diffuse brain parenchymal volume loss with the temporal lobes affected the most. There are multiple patchy and confluent areas of low-attenuation white matter changes involving both cerebral hemispheres and periventricular regions. There is normal thompson-white matter distinction. There is no significant midline shift or herniation. There is no evidence of hydrocephalus. The basal cisterns are unremarkable. The skull, extracranial soft tissue, and orbits are unremarkable. There is mild ethmoid sinus mucosal thickening. Temporal bones show no significant abnormality. IMPRESSION: Grossly stable CT scan of the brain with no evidence of acute intracranial process. Dictated by: Dictated on workstation # [id number]
[2021-06-23 14:21] LABS: BACTERIA,URINE TRACE /HPF; BILIRUBIN,URINE NEGATIVE (NEGATIVE); CLARITY,URINE CLEAR; COLOR,URINE YELLOW; GLUCOSE, URINE (UA) NEGATIVE (NEGATIVE); KETONES,URINE NEGATIVE (NEGATIVE); LEUKOCYTE ESTERASE ,URINE 1+ (NEGATIVE); NITRITE,URINE NEGATIVE (NEGATIVE); PH,URINE 7.5 (5-9); PROTEIN,URINE NEGATIVE (NEGATIVE); SQUAMOUS EPITHELIAL CELL,UR RARE /HPF
[2021-06-23] MEDS ORDERED: CEPH500T PO (15:05)
[2021-06-23] MEDS ORDERED: cefTRIAXone 1,000 MG in WATER (STERILE) FOR INJECTION 10 ML IV STA (15:06)
[2021-06-23 17:00] VITALS: BP 138/78
== END 2021-06-23 17:00 | disposition home or self-care (01) ==
LOC: EDUNIT# 12:37 → ER FS 12:39
DX: E86.0 Dehydration (principal); F03.90 Unspecified dementia, unspecified severity, without behavioral disturbance, psychotic disturbance, mood disturbance, and anxiety; N30.90 Cystitis, unspecified without hematuria; I95.9 Hypotension, unspecified; K21.9 Gastro-esophageal reflux disease without esophagitis; F32.9 Major depressive disorder, single episode, unspecified; E03.9 Hypothyroidism, unspecified; Z79.899 Other long term (current) drug therapy; Z79.890 Hormone replacement therapy; Z79.82 Long term (current) use of aspirin
CPT/HCPCS: 36415; 70450; 80053; 81000; 84484; 85025; 85610; 85730; 93005; 93041